=== PATIENT | female | born 1970 | race African-American/Black ===

== ENCOUNTER 2017-11-07 10:41 | Inpatient (IN) | payer OTHER ==
[~2017-11-07] VITALS: Ht 172.7 cm; Wt 93.5 kg
[2017-11-07] MEDS ORDERED: UNOBMED (10:42)
[2017-11-07 10:46] VITALS: BP 135/94
[2017-11-07 11:14] LABS: BASOPHILS % (AUTO) 0.9 % (0.0-2.0); EOSINOPHILS % (AUTO) 1.2 % (0.0-3.0); HEMATOCRIT 44.1 % (37.0-47.0); MEAN CORPUSCULAR VOLUME 108 FL (80-99); NEUTROPHILS % (AUTO) 72.9 % (45.0-75.0); PLATELET COUNT 234 K/UL (150-450); RED BLOOD COUNT 4.09 M/UL (4.20-5.40); RED CELL DISTRIBUTION WIDTH 15.4 % (11.6-14.8); WHITE BLOOD COUNT 9.1 K/UL (4.8-10.8)
[2017-11-07] MEDS ORDERED: HUMULIN R100 UNIT/1 SUBQ (11:39)
[2017-11-07] MEDS ORDERED: ALLOPURINOL300 M1 ORAL (11:39)
[2017-11-07] MEDS ORDERED: COREG6.25 MG ORAL (11:39)
--- NOTE | 2017-11-07 11:46 | Diagnostic Imaging Report ---
Indications: Seizure Technique: Spiral acquisitions obtained through the brain. Angled axial and coronal 5 x 5 mm slices were reconstructed. Total dose length product 1393.68 mGycm. CTDI vol(s) 70.38 mGy. Dose reduction achieved using automated exposure control Comparison: None. Findings: Ventricles and extra-axial CSF spaces are prominent for age, and there is mild periventricular deep white matter low-attenuation. No acute intrarenal hemorrhage or edema. No mass effect or midline shift. There is some thickening of the subcutaneous fat in the left posterior high parietal region. The calvarium is intact. The orbits and sinuses are unremarkable. The mastoids are clear. Impression: Mild cerebral volume loss and chronic periventricular deep white matter ischemic change, somewhat advanced for age Negative for acute intracranial bleed or mass effect Focal left parietal subcutaneous fat soft tissue thickening, could represent a small area of contusion or a subcutaneous lesion fluid. Correlate with clinical findings The CT scanner at [facility] is accredited by the [employer] and the scans are performed using protocols designed to limit radiation exposure to as low as reasonably achievable to attain images of sufficient resolution adequate for diagnostic evaluation.
[2017-11-07 12:05] LABS: BILIRUBIN, URINE NEGATIVE (NEGATIVE); COLOR,URINE PALE YELLOW; GLUCOSE, URINE (UA) 4+ (NEGATIVE); KETONES,URINE NEGATIVE (NEGATIVE); LEUKOCYTE ESTERASE ,URINE 2+ (NEGATIVE); NITRITE,URINE NEGATIVE (NEGATIVE); PH,URINE 7 (4.5-8.0); PROTEIN,URINE NEGATIVE (NEGATIVE); UROBILINOGEN,URINE NORMAL MG/DL (0.0-1.0)
[2017-11-07 12:06] LABS: APPEARANCE,URINE SLIGHTLY CLOUDY
[2017-11-07] MEDS ORDERED: LEVOTHYROXINE200 MCG PO (12:29)
[2017-11-07] MEDS ORDERED: TRAZODONE HCL100 MG ORAL (12:36)
[2017-11-07] MEDS ORDERED: OMEPRAZOLE40 M1 ORAL (12:36)
[2017-11-07] MEDS ORDERED: TRAMADOL HCL50 MG ORAL (12:36)
[2017-11-07] MEDS ORDERED: ZOFRAN4 M3 ORAL (12:36)
[2017-11-07] MEDS ORDERED: GABAPENTIN300 MG ORAL (12:36)
[2017-11-07] MEDS ORDERED: NAPROXEN CR500 MG PO (12:36)
[2017-11-07] MEDS ORDERED: PAROXETINE HCL20 MG PO (12:36)
[2017-11-07] MEDS ORDERED: VIVITROL380 MG IM (12:36)
[2017-11-07] MEDS ORDERED: LORAZEPAM0.5 MG ORAL (12:36)
[2017-11-07 12:42] LABS: ALANINE AMINOTRANSFERASE 24 U/L (12-78); ALBUMIN 3.5 G/DL (3.4-5.0); ALBUMIN/GLOBULIN RATIO 0.7 (1.0-2.7); ALKALINE PHOSPHATASE 230 U/L (46-116); ANION GAP 7 mmol/L (5-15); ASPARTATE AMINO TRANSFERASE 24 U/L (15-37); BILIRUBIN,TOTAL 0.6 MG/DL (0.2-1.0); BLOOD UREA NITROGEN 14 mg/dL (7-18); CALCIUM 9.7 MG/DL (8.5-10.1); CARBON DIOXIDE 31 MMOL/L (21-32); CHLORIDE 94 MMOL/L (98-107); CKMB < 0.5 NG/ML (0.0-3.6); CREATINE KINASE 97 U/L (26-308); CREATININE 1.4 MG/DL (0.55-1.30); SODIUM 132 MMOL/L (136-145)
[2017-11-07 13:11] VITALS: BP 138/84
--- NOTE | 2017-11-07 13:22 | Emergency Room Report ---
History of Present Illness General Chief Complaint: Seizure Source: Patient, EMS Present Illness HPI The patient states that for the past few days, she has had spasms in her hands and upper arms. She states it causes her hands to flex and she is unable to control fine movements. She states it is both of her hands and arms. She states she also felt a similar sensation all over her body. She has not had any loss of consciousness. She denies recent illness. She denies fever or chills. She denies nausea or vomiting. She denies headache. She does have a history of diabetes but does not take her blood sugar regularly and states she is not compliant with her medication regimen. She has no other complaints. Allergies: Coded Allergies: No Known Allergies (Unverified , 11/07/17) Patient History Past Medical History: see triage record, DM, HTN, seizures Social History: Denies: smoking, alcohol use, drug use Last Menstrual Period: 2013 Reviewed Nursing Documentation: PMH: Agreed; PSxH: Agreed Nursing Documentation-PMH Hx Diabetes: Yes - DM2 Hx Seizures: Yes - No meds Review of Systems All Other Systems: negative except mentioned in HPI Physical Exam Vital Signs Date Time Temp Pulse Resp B/P (MAP) Pulse Ox O2 Delivery O2 Flow Rate FiO2 11/07/17 10:36 99.1 121 18 138/97 99 Room Air 99.1 Sp02 EP Interpretation: reviewed, normal General Appearance: no apparent distress, alert, GCS 15, non-toxic Head: normocephalic, atraumatic Eyes: bilateral eye normal inspection, bilateral eye PERRL ENT: hearing grossly normal, normal pharynx, no angioedema, normal voice Neck: full range of motion, supple/symm/no masses Respiratory: chest non-tender, lungs clear, normal breath sounds, speaking full sentences Cardiovascular #1: no edema, tachycardia Gastrointestinal: normal bowel sounds, non tender, soft, non-distended, no guarding, no rebound Rectal: deferred Musculoskeletal: back normal, gait/station normal, normal range of motion, non- tender Neurologic: alert, oriented x3, responsive, motor strength/tone normal, sensory intact, speech normal Psychiatric: judgement/insight normal, memory normal, mood/affect normal, no suicidal/homicidal ideation Skin: normal color, no rash, warm/dry, well hydrated Medical Decision Making Diagnostic Impression: Primary Impression: Hyperglycemia Additional Impressions: Carpopedal spasm Noncompliance with medications ER Course This patient is found to have significant hyperglycemia. The patient's blood sugar is over 600. Patient has poor compliance with her diabetes medication regimen. There is no evidence of DKA. The patient is given aggressive hydration. There is no evidence of infection. The patient will be admitted for uncontrolled diabetes. Laboratory Tests Test 11/07/17 10:50 11/07/17 11:46 11/07/17 11:50 White Blood Count 9.1 K/UL (4.8-10.8) Red Blood Count 4.09 M/UL (4.20-5.40) L Hemoglobin 13.0 G/DL (12.0-16.0) Hematocrit 44.1 % (37.0-47.0) Mean Corpuscular Volume 108 FL (80-99) H Mean Corpuscular Hemoglobin 31.9 PG (27.0-31.0) H Mean Corpuscular Hemoglobin Concent 29.6 G/DL (32.0-36.0) L Red Cell Distribution Width 15.4 % (11.6-14.8) H Platelet Count 234 K/UL (150-450) Mean Platelet Volume 7.7 FL (6.5-10.1) Neutrophils (%) (Auto) 72.9 % (45.0-75.0) Lymphocytes (%) (Auto) 19.0 % (20.0-45.0) L Monocytes (%) (Auto) 6.0 % (1.0-10.0) Eosinophils (%) (Auto) 1.2 % (0.0-3.0) Basophils (%) (Auto) 0.9 % (0.0-2.0) Acetone Level Negative (NEGATIVE) Urine Color Pale yellow Urine Appearance Slightly cloudy Urine pH 7 (4.5-8.0) Urine Specific [place] 1.010 (1.005-1.035) Urine Protein Negative (NEGATIVE) Urine Glucose (UA) 4+ (NEGATIVE) H Urine Ketones Negative (NEGATIVE) Urine Occult Blood Negative (NEGATIVE) Urine Nitrite Negative (NEGATIVE) Urine Bilirubin Negative (NEGATIVE) Urine Urobilinogen Normal MG/DL (0.0-1.0) Urine Leukocyte Esterase 2+ (NEGATIVE) H Urine RBC 0-2 /HPF (0 - 2) Urine WBC 2-4 /HPF (0 - 2) Urine Squamous Epithelial Cells Occasional /LPF Urine Bacteria Few /HPF (NONE) Urine Opiates Screen Negative (NEGATIVE) Urine Barbiturates Screen Negative (NEGATIVE) Phencyclidine (PCP) Screen Negative (NEGATIVE) Urine Amphetamines Screen Negative (NEGATIVE) Urine Benzodiazepines Screen Negative (NEGATIVE) Urine Cocaine Screen Negative (NEGATIVE) Urine Marijuana (THC) Screen Negative (NEGATIVE) Sodium Level 132 MMOL/L (136-145) L Potassium Level 4.0 MMOL/L (3.5-5.1) Chloride Level 94 MMOL/L (98-107) L Carbon Dioxide Level 31 MMOL/L (21-32) Anion Gap 7 mmol/L (5-15) Blood Urea Nitrogen 14 mg/dL (7-18) Creatinine 1.4 MG/DL (0.55-1.30) H Estimate Glomerular Filtration Rate 49.1 mL/min (>60) Glucose Level 601 MG/DL (74-106) *H Calcium Level 9.7 MG/DL (8.5-10.1) Magnesium Level 1.8 MG/DL (1.8-2.4) Total Bilirubin 0.6 MG/DL (0.2-1.0) Aspartate Amino Transferase (AST) 24 U/L (15-37) Alanine Aminotransferase (ALT) 24 U/L (12-78) Alkaline Phosphatase 230 U/L (46-116) H Total Creatine Kinase 97 U/L (26-308) Creatine Kinase MB < 0.5 NG/ML (0.0-3.6) Creatine Kinase MB Relative Index 0.5 Total Protein 8.6 G/DL (6.4-8.2) H Albumin 3.5 G/DL (3.4-5.0) Globulin 5.1 g/dL Albumin/Globulin Ratio 0.7 (1.0-2.7) L Serum Alcohol < 3 mg/dL EKG Diagnostic Results Rate: tachycardiac Rhythm: other - S.tachycardia ST Segments: no acute changes Rhythm Strip Diag. Results EP Interpretation: yes Rate: 100's Rhythm: no PVC's, no ectopy, other - S.tachycardia CT/MRI/US Diagnostic Results CT/MRI/US Diagnostic Results : Imaging Test Ordered: CT head Impression Impression: Mild cerebral volume loss and chronic periventricular deep white matter ischemic change, somewhat advanced for age Negative for acute intracranial bleed or mass effect Focal left parietal subcutaneous fat soft tissue thickening, could represent a small area of contusion or a subcutaneous lesion fluid. Correlate with clinical findings Last Vital Signs Date Time Temp Pulse Resp B/P (MAP) Pulse Ox O2 Delivery O2 Flow Rate FiO2 11/07/17 10:46 99.1 105 20 135/94 98 Room Air 99.1 Status: improved Disposition: ADMITTED INPATIENT Condition: Serious Referrals: NOT CHOSEN IPA/,REFERRING (PCP) Cristal Gambino DO Nov 07, 2017 13:22
[2017-11-07] MEDS ORDERED: Insulin Human Regular 100units/ml 3ml SUBQ ONE (15:00)
[2017-11-07 15:14] VITALS: BP 157/97
[2017-11-07 18:39] LABS: BASOPHILS % (AUTO) 1.1 % (0.0-2.0); EOSINOPHILS % (AUTO) 1.5 % (0.0-3.0); HEMATOCRIT 34.9 % (37.0-47.0); HEMOGLOBIN 10.8 G/DL (12.0-16.0); LYMPHOCYTES % (AUTO) 19.8 % (20.0-45.0); MEAN CORPUSCULAR VOLUME 107 FL (80-99); NEUTROPHILS % (AUTO) 70.6 % (45.0-75.0); PLATELET COUNT 205 K/UL (150-450); RED BLOOD COUNT 3.26 M/UL (4.20-5.40); RED CELL DISTRIBUTION WIDTH 15.6 % (11.6-14.8); WHITE BLOOD COUNT 10.8 K/UL (4.8-10.8)
[2017-11-07] MEDS: LORazepam 0.5mg tab ORAL SCH (18:44)
[2017-11-07 20:00] VITALS: BP 138/91
[2017-11-07] MEDS ORDERED: Levemir Flexpen SUBQ SCH (21:00)
[2017-11-07] MEDS: NovoLOG Insulin Flexpen SUBQ SCH (21:19)
[2017-11-07] MEDS: Levemir Flexpen SUBQ SCH (21:19)
[2017-11-07] MEDS: Carvedilol 6.25mg Tab ORAL SCH (21:26)
[2017-11-07] MEDS: TraZODone 100mg tab ORAL SCH (21:26)
[2017-11-07] MEDS: Naproxen 500mg tab ORAL SCH (21:26)
[2017-11-07] MEDS: Heparin 5000 units/ml inj SUBQ SCH (21:29)
--- NOTE | 2017-11-07 23:15 | Consultation ---
DATE OF CONSULTATION: 11/07/2017 ENDOCRINOLOGY CONSULTATION CONSULTING PHYSICIAN: Doug Paiz M.D. REFERRING PHYSICIAN: Joss Corral M.D. REASON FOR CONSULTATION: Diabetes management. HISTORY OF PRESENT ILLNESS: The patient is a 47-year-old female, morbidly obese with history of diabetes, who presented to the hospital after having a seizure activity. I reviewed her medical record at [facility], and she had a similar presentation to [facility] with elevated glucose and seizure. The patient was admitted to the floor for observation and treatment. Currently is lethargic, most likely related to a postictal state and not able to provide any history. PAST MEDICAL HISTORY: 1. Seizure. 2. Diabetes. 3. Hypertension. 4. Hypothyroidism. MEDICATIONS: As an outpatient: 1. Regular insulin. 2. Gabapentin. 3. Carvedilol. 4. Allopurinol. 5. Lorazepam. 6. Levothyroxine 50 mcg daily. 7. Paxil. 8. Tramadol. 9. Trazodone. SOCIAL HISTORY: The patient denies any smoking, alcohol, or drug use. FAMILY HISTORY: Diabetes. REVIEW OF SYSTEMS: Difficult to obtain. PHYSICAL EXAMINATION: GENERAL: The patient is lethargic. VITAL SIGNS: Blood pressure is 157/97, pulse 92, temperature 99.1 degrees, and respiratory rate 20. HEENT: Pupils are equal and reactive to light. Sclerae anicteric. NECK: No JVD. No thyromegaly. LUNGS: Clear. HEART: Regular rate and rhythm. ABDOMEN: Positive bowel sounds. Soft. EXTREMITIES: No clubbing, cyanosis, or edema. LABORATORY AND DIAGNOSTIC DATA: Sodium 132, potassium 4, chloride 94, bicarbonate 31, BUN 14, creatinine 1.4, and glucose of 600. DIAGNOSES: 1. Seizure. 2. Diabetes, out of control. 3. Noncompliance with medication. 4. Hypothyroidism. 5. Hypertension. PLAN: 1. Start Levemir 24 units nightly. 2. Start NovoLog 8 units before each meal. 3. Check hemoglobin A1c. 4. Blood glucose monitoring before meals and at bedtime. 5. NovoLog sliding scale before meals and at bedtime. 6. Continue levothyroxine 50 mcg daily. 7. Check TSH and free T4. 8. Further adjustment according to blood glucose values. Thank you, Dr. Corral, for the courtesy of this consultation. Doug Paiz M.D. DR: PERFECTO JOB#: [id number] CC:
[2017-11-08] VITALS: BP 155/108
[2017-11-08] MEDS: traMADol 50mg tab ORAL PRN ×2 (00:40→11:47)
[2017-11-08] MEDS: LORazepam Inj 2mg/ml 1ml IV PRN ×2 (00:41→11:45)
[2017-11-08] MEDS: NovoLOG Insulin Flexpen SUBQ SCH ×7 (06:38→21:31)
--- NOTE | 2017-11-08 07:06 | General Progress Note ---
Assessment/Plan Problem List: (1) Hyperglycemia ICD Codes: R73.9 - Hyperglycemia, unspecified SNOMED: 65214745 (2) Noncompliance with medications ICD Codes: Z91.14 - Patient's other noncompliance with medication regimen SNOMED: 830178904 (3) Carpopedal spasm ICD Codes: R29.0 - [place] SNOMED: 04261458 Assessment/Plan fasting glucose improved continue Levemir 24 units qhs continue Novolog 8 units ac tid + SSI Subjective ROS Limited/Unobtainable: Yes Allergies: Coded Allergies: No Known Allergies (Unverified , 11/07/17) Subjective events noted Objective Last 24 Hour Vital Signs Date Time Temp Pulse Resp B/P (MAP) Pulse Ox O2 Delivery O2 Flow Rate FiO2 11/08/17 00:00 83 11/08/17 00:00 98.0 81 22 155/108 99 Room Air 98.0 11/07/17 21:26 103 138/91 11/07/17 20:00 103 11/07/17 20:00 98.2 97 20 138/91 99 Room Air 98.2 11/07/17 15:45 99.1 92 20 157/97 99 Room Air 99.1 11/07/17 15:14 92 20 157/97 99 Room Air 11/07/17 13:11 95 22 138/84 98 Room Air 11/07/17 10:46 99.1 105 20 135/94 98 Room Air 99.1 11/07/17 10:46 121 18 Room Air 11/07/17 10:36 99.1 121 18 138/97 99 Room Air 99.1 Intake and Output 11/07/17 11/08/17 19:00 07:00 Intake Total 2000 ml Balance 2000 ml Intake Oral 0 ml IV Total 2000 ml Laboratory Tests 11/07/17 10:50: White Blood Count 9.1, Red Blood Count 4.09L, Hemoglobin 13.0, Hematocrit 44.1, Mean Corpuscular Volume 108H, Mean Corpuscular Hemoglobin 31.9H, Mean Corpuscular Hemoglobin Concent 29.6L, Red Cell Distribution Width 15.4H, Platelet Count 234, Mean Platelet Volume 7.7, Neutrophils (%) (Auto) 72.9, Lymphocytes (%) (Auto) 19.0L, Monocytes (%) (Auto) 6.0, Eosinophils (%) (Auto) 1.2, Basophils (%) (Auto) 0.9, Acetone Level Negative 11/07/17 11:46: Urine Color Pale yellow, Urine Appearance Slightly cloudy, Urine pH 7, Urine Specific [place] 1.010, Urine Protein Negative, Urine Glucose (UA) 4+H, Urine Ketones Negative, Urine Occult Blood Negative, Urine Nitrite Negative, Urine Bilirubin Negative, Urine Urobilinogen Normal, Urine Leukocyte Esterase 2+H, Urine RBC 0-2, Urine WBC 2-4, Urine Squamous Epithelial Cells Occasional, Urine Bacteria Few, Urine Opiates Screen Negative, Urine Barbiturates Screen Negative , Phencyclidine (PCP) Screen Negative, Urine Amphetamines Screen Negative, Urine Benzodiazepines Screen Negative, Urine Cocaine Screen Negative, Urine Marijuana (THC) Screen Negative 11/07/17 11:50: Sodium Level 132L, Potassium Level 4.0, Chloride Level 94L, Carbon Dioxide Level 31, Anion Gap 7, Blood Urea Nitrogen 14, Creatinine 1.4H, Estimat Glomerular Filtration Rate 49.1, Glucose Level 601*H, Calcium Level 9.7, Magnesium Level 1.8, Total Bilirubin 0.6, Aspartate Amino Transf (AST/SGOT) 24, Alanine Aminotransferase (ALT/SGPT) 24, Alkaline Phosphatase 230H, Total Creatine Kinase 97, Creatine Kinase MB < 0.5, Creatine Kinase MB Relative Index 0.5, Total Protein 8.6H, Albumin 3.5, Globulin 5.1, Albumin/Globulin Ratio 0.7L , Serum Alcohol < 3 11/07/17 18:25: White Blood Count 10.8, Red Blood Count 3.26L, Hemoglobin 10.8L, Hematocrit 34.9L, Mean Corpuscular Volume 107H, Mean Corpuscular Hemoglobin 33.1H, Mean Corpuscular Hemoglobin Concent 31.0L, Red Cell Distribution Width 15.6H, Platelet Count 205, Mean Platelet Volume 6.7, Neutrophils (%) (Auto) 70.6, Lymphocytes (%) (Auto) 19.8L, Monocytes (%) (Auto) 7.0, Eosinophils (%) (Auto) 1.5, Basophils (%) (Auto) 1.1, Serum Alcohol < 3, Hemoglobin A1c 12.2H, Troponin I 0.002, Pro-B-Type Natriuretic Peptide 220H Height (Feet): 5 Height (Inches): 8.00 Weight (Pounds): 206 General Appearance: no apparent distress Neck: normal alignment Cardiovascular: normal rate Respiratory/Chest: lungs clear Abdomen: normal bowel sounds Pelvis: normal external exam Edema: no edema noted Arm (L), no edema noted Arm (R), no edema noted Leg (L), no edema noted Leg (R), no edema noted Pedal (L), no edema noted Pedal (R), no edema noted Generalized Objective Item Value Date Time Bedside Blood Glucose 173 mg/dl H 11/08/17 0639 Bedside Blood Glucose 433 mg/dl H 11/07/17 2333 Bedside Blood Glucose 495 mg/dl H 11/07/17 2119 Bedside Blood Glucose 430 mg/dl H 11/07/17 1532 Bedside Blood Glucose 434 mg/dl H 11/07/17 1450 Doug Paiz MD Nov 08, 2017 07:06
[2017-11-08 07:40] LABS: BASOPHILS % (AUTO) 1.2 % (0.0-2.0); HEMATOCRIT 34.9 % (37.0-47.0); HEMOGLOBIN 10.7 G/DL (12.0-16.0); LYMPHOCYTES % (AUTO) 28.2 % (20.0-45.0); MEAN CORPUSCULAR VOLUME 108 FL (80-99); MONOCYTES % (AUTO) 6.7 % (1.0-10.0); NEUTROPHILS % (AUTO) 61.8 % (45.0-75.0); PLATELET COUNT 229 K/UL (150-450); RED BLOOD COUNT 3.25 M/UL (4.20-5.40); RED CELL DISTRIBUTION WIDTH 15.6 % (11.6-14.8); WHITE BLOOD COUNT 8.8 K/UL (4.8-10.8)
[2017-11-08 08:00] VITALS: BP 189/111
[2017-11-08 08:05] LABS: CHOLESTEROL 194 MG/DL (< 200); HDL CHOLESTEROL 38 MG/DL (40-60); TRIGLYCERIDES 288 MG/DL (30-150)
[2017-11-08] MEDS: Naproxen 500mg tab ORAL SCH ×2 (09:14→17:14)
[2017-11-08] MEDS: PARoxetine 20mg tab ORAL SCH (09:14)
[2017-11-08] MEDS: Carvedilol 6.25mg Tab ORAL SCH ×2 (09:14→21:21)
[2017-11-08] MEDS: LORazepam 0.5mg tab ORAL SCH ×2 (09:14→17:13)
[2017-11-08] MEDS: Heparin 5000 units/ml inj SUBQ SCH ×2 (09:16→21:32)
--- NOTE | 2017-11-08 10:53 | Consultation ---
Consult Note Assessment/Plan DICT # [id number] Joss Corral MD Nov 08, 2017 10:53
[2017-11-08] MEDS: HydrALAZINE 25mg tab ORAL PRN (11:46)
[2017-11-08 12:00] VITALS: BP 161/108
--- NOTE | 2017-11-08 13:20 | Diagnostic Imaging Report ---
Indication: Cough Technique: One view of the chest Comparison: none Findings: Lungs and pleural spaces are clear. The heart is enlarged. The aorta is tortuous Impression: Cardiomegaly. No acute process
--- NOTE | 2017-11-08 14:02 | History and Physical ---
History of Present Illness General Date patient seen: Nov 08, 2017 Time patient seen: 14:02 Reason for Hospitalization: Seizure Present Illness HPI 47 y/o female with a PMH of seizure d/o, uncontrolled DM, hypothyroidism, gout, bipolar disorder, and daily smoker presented to [place] [facility] for seizure activity with altered mental status and generalized muscle spasms to upper and lower extremities and numbness and tingling. Patient states that this lasted for several minutes, which prompted her to come to the ER. She states that she has had several symptoms such as this with the last one on 10/14/17 where she was intubated in the field and brought to [facility]. There, she was further managed in the ICU and discharged in stable condition. Patient was also noted to have a blood sugar of 601 upon arrival to ED. Patient also reports noncompliance with her medications including her keppra and diabetic medications. Patient was given insulin and IVF. Denies cp, sob, n/v, f/c, d/c, abdominal pain. Patient does report depression but denies SI/HI. Reports to socially drinking and 1/2 ppd x 5 years tobacco abuser. Denies any other illicit drug use. Allergies: Coded Allergies: No Known Allergies (Unverified , 11/07/17) Medication History Scheduled Allopurinol* (Allopurinol*), 300 MG ORAL DAILY, (Reported) Carvedilol (Coreg), 6.25 MG ORAL EVERY 12 HOURS, (Reported) Gabapentin* (Gabapentin*), 300 MG ORAL THREE TIMES A DAY, (Reported) Levothyroxine Sodium* (Levothyroxine Sodium), 50 MCG PO DAILY, (Reported) Lorazepam* (Lorazepam*), 0.5 MG ORAL BID, (Reported) Naproxen Sodium (Naproxen Cr), 500 MG PO BID, (Reported) Omeprazole (Omeprazole), 40 MG ORAL DAILY, (Reported) Paroxetine Hcl* (Paxil*), 20 MG PO DAILY, (Reported) Trazodone Hcl* (Desyrel*), 100 MG ORAL BEDTIME, (Reported) Scheduled PRN Ondansetron* (Zofran*), 4 MG ORAL Q6H PRN for Nausea & Vomiting, (Reported) Tramadol Hcl* (Ultram*), 50 MG ORAL Q6H PRN for For Pain, (Reported) Miscellaneous Medications Insulin Regular, Human (Humulin R), 0 SUBQ, (Reported) Naltrexone Microspheres (Vivitrol), 380 MG IM, (Reported) Unable to Obtain Medications (Unable To Obtain Meds), (Reported) Medications Narrative Active Scripts Medications Dose Route/Sig Max Daily Dose Days Date Category Gabapentin* (Gabapentin) 300 Mg Capsule 300 Mg ORAL THREE TIMES A DAY 11/07/17 Reported Ultram* (Tramadol HCl) 50 Mg Tablet 50 Mg ORAL Q6H PRN 11/07/17 Reported Desyrel* (Trazodone HCl) 100 Mg Tablet 100 Mg ORAL BEDTIME 11/07/17 Reported Paxil* (Paroxetine HCl) 20 Mg Tablet 20 Mg PO DAILY 11/07/17 Reported Zofran* (Ondansetron HCl) 4 Mg Tablet 4 Mg ORAL Q6H PRN 11/07/17 Reported Omeprazole 40 Mg Capsule.dr 40 Mg ORAL DAILY 11/07/17 Reported Naproxen Cr (Naproxen Sodium) 500 Mg Tbmp.24hr 500 Mg PO BID 11/07/17 Reported Vivitrol (Naltrexone Microspheres) 380 Mg Ayana.er.rec 380 Mg IM 11/07/17 Reported Lorazepam* (Lorazepam) 0.5 Mg Tablet 0.5 Mg ORAL BID 11/07/17 Reported Levothyroxine Sodium 200 Mcg Vial 50 Mcg PO DAILY 11/07/17 Reported Humulin R (Insulin Human Regular) 100 Unit/1 Ml Vial 0 SUBQ 11/07/17 Reported Coreg (Carvedilol) 6.25 Mg Tablet 6.25 Mg ORAL EVERY 12 HOURS 11/07/17 Reported Allopurinol* (Allopurinol) 300 Mg Tablet 300 Mg ORAL DAILY 11/07/17 Reported Unable To Obtain Meds (Unable to Obtain Medications) 1 Ea Ea 11/07/17 Reported Patient History History Provided By: Patient, Medical Record Healthcare decision maker Y Resuscitation status Full Code Advanced Directive on File Review of Systems All Other Systems: negative except mentioned in HPI Physical Exam General Appearance: no apparent distress, alert HEENT: normocephalic, atraumatic, other - exophthalmos Neck: non-tender, normal alignment, supple Respiratory/Chest: chest wall non-tender, lungs clear, normal breath sounds Cardiovascular/Chest: normal peripheral pulses, normal rate, regular rhythm Abdomen: normal bowel sounds, non tender, soft Extremities: normal range of motion, non-tender, normal inspection Skin Exam: normal pigmentation, warm/dry 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, no motor/sensory deficits, alert, oriented x 3 Last 24 Hour Vital Signs Date Time Temp Pulse Resp B/P (MAP) Pulse Ox O2 Delivery O2 Flow Rate FiO2 11/08/17 11:46 168/114 11/08/17 10:13 98.1 11/08/17 09:14 76 186/111 11/08/17 08:00 89 11/08/17 08:00 98.1 76 18 189/111 97 Room Air 98.1 11/08/17 04:00 87 11/08/17 00:00 83 11/08/17 00:00 98.0 81 22 155/108 99 Room Air 98.0 11/07/17 21:26 103 138/91 11/07/17 20:00 103 11/07/17 20:00 98.2 97 20 138/91 99 Room Air 98.2 11/07/17 15:45 99.1 92 20 157/97 99 Room Air 99.1 11/07/17 15:14 92 20 157/97 99 Room Air Intake and Output 11/07/17 11/08/17 19:00 07:00 Intake Total 2000 ml Balance 2000 ml Intake Oral 0 ml IV Total 2000 ml Laboratory Tests Test 11/07/17 18:25 11/08/17 07:00 11/08/17 11:00 White Blood Count 10.8 K/UL (4.8-10.8) 8.8 K/UL (4.8-10.8) Red Blood Count 3.26 M/UL (4.20-5.40) L 3.25 M/UL (4.20-5.40) L Hemoglobin 10.8 G/DL (12.0-16.0) L 10.7 G/DL (12.0-16.0) L Hematocrit 34.9 % (37.0-47.0) L 34.9 % (37.0-47.0) L Mean Corpuscular Volume 107 FL (80-99) H 108 FL (80-99) H Mean Corpuscular Hemoglobin 33.1 PG (27.0-31.0) H 33.0 PG (27.0-31.0) H Mean Corpuscular Hemoglobin Concent 31.0 G/DL (32.0-36.0) L 30.7 G/DL (32.0-36.0) L Red Cell Distribution Width 15.6 % (11.6-14.8) H 15.6 % (11.6-14.8) H Platelet Count 205 K/UL (150-450) 229 K/UL (150-450) Mean Platelet Volume 6.7 FL (6.5-10.1) 8.0 FL (6.5-10.1) Neutrophils (%) (Auto) 70.6 % (45.0-75.0) 61.8 % (45.0-75.0) Lymphocytes (%) (Auto) 19.8 % (20.0-45.0) L 28.2 % (20.0-45.0) Monocytes (%) (Auto) 7.0 % (1.0-10.0) 6.7 % (1.0-10.0) Eosinophils (%) (Auto) 1.5 % (0.0-3.0) 2.0 % (0.0-3.0) Basophils (%) (Auto) 1.1 % (0.0-2.0) 1.2 % (0.0-2.0) Hemoglobin A1c 12.2 % (4.3-6.0) H Troponin I 0.002 ng/mL (0.000-0.056) Pro-B-Type Natriuretic Peptide 220 pg/mL (0-125) H Serum Alcohol < 3 mg/dL Triglycerides Level 288 MG/DL (30-150) H Cholesterol Level 194 MG/DL (< 200) LDL Cholesterol 125 mg/dL (<100) H HDL Cholesterol 38 MG/DL (40-60) L Cholesterol/HDL Ratio 5.1 (3.3-4.4) H Ammonia 31 umol/L (11-32) Height (Feet): 5 Height (Inches): 8.00 Weight (Pounds): 206 Medications Current Medications Medications (Trade) Dose Ordered Sig/Tadeo Route PRN Reason Start Time Stop Time Status Last Admin Dose Admin Allopurinol (Allopurinol) 300 mg DAILY ORAL 11/08/17 09:00 12/08/17 08:59 11/08/17 09:14 Carvedilol (Coreg) 6.25 mg EVERY 12 HOURS ORAL 11/07/17 21:00 12/07/17 20:59 11/08/17 09:14 Dextrose (Dextrose 50%) 25 ml STAT PRN IV Hypoglycemia 11/07/17 18:45 12/07/17 18:44 Dextrose (Dextrose 50%) 50 ml STAT PRN IV Hypoglycemia 11/07/17 18:45 12/07/17 18:44 Folic Acid (Folate) 1 mg DAILY ORAL 11/09/17 09:00 12/09/17 08:59 Gabapentin (Neurontin) 300 mg THREE TIMES A DAY ORAL 11/07/17 18:00 12/07/17 17:59 11/08/17 09:14 Heparin Sodium (Porcine) (Heparin 5000 units/ml) 5,000 units EVERY 12 HOURS SUBQ 11/07/17 21:00 12/07/17 20:59 11/08/17 09:16 Hydralazine HCl (Apresoline) 25 mg Q6H PRN ORAL Administer for SBP > 160 11/08/17 11:00 12/08/17 10:59 11/08/17 11:46 Insulin Aspart (NovoLOG) BEFORE MEALS AND HS SUBQ 11/07/17 21:00 12/07/17 20:59 11/08/17 11:50 Insulin Aspart (NovoLOG) 8 units NOVOTIAC SUBQ 11/08/17 06:30 12/08/17 06:29 11/08/17 11:49 Insulin Detemir (Levemir) 24 units BEDTIME SUBQ 11/07/17 21:00 12/07/17 20:59 11/07/17 21:19 Levetiracetam (Keppra) 500 mg Q12HR ORAL 11/08/17 21:00 12/08/17 20:59 Levothyroxine Sodium (Synthroid) 50 mcg DAILY@0630 ORAL 11/08/17 06:30 12/12/17 06:29 11/08/17 06:37 Lorazepam (Ativan 2mg/ml 1ml) 1 mg Q2H PRN IV For Anxiety 11/07/17 17:30 11/14/17 17:29 11/08/17 11:45 Lorazepam (Ativan) 0.5 mg BID ORAL 11/07/17 18:00 11/14/17 17:59 11/08/17 09:14 Multivitamins (Multivitamins) 1 tab DAILY ORAL 11/09/17 09:00 12/09/17 08:59 Naproxen (Naprosyn) 500 mg TWICE A DAY ORAL 11/07/17 20:00 12/07/17 19:59 11/08/17 09:14 Ondansetron HCl (Zofran ODT) 4 mg Q6H PRN ORAL Nausea & Vomiting 11/07/17 17:30 12/07/17 17:29 Pantoprazole (Protonix) 40 mg DAILY ORAL 11/08/17 09:00 12/08/17 08:59 11/08/17 09:12 Paroxetine HCl (Paxil) 20 mg DAILY ORAL 11/08/17 09:00 12/08/17 08:59 11/08/17 09:14 Sodium Chloride 1,000 ml @ 100 mls/hr Q10H IV 11/07/17 18:30 12/07/17 18:29 11/08/17 03:44 Thiamine HCl (Vitamin B1) 100 mg DAILY ORAL 11/09/17 09:00 12/09/17 08:59 Tramadol HCl (Ultram) 50 mg Q6H PRN ORAL For Pain 11/07/17 17:30 11/14/17 17:29 11/08/17 11:47 Trazodone HCl (Desyrel) 100 mg BEDTIME ORAL 11/07/17 21:00 12/07/17 20:59 11/07/17 21:26 Assessment/Plan Problem List: (1) Seizure disorder ICD Codes: G40.909 - Epilepsy, unspecified, not intractable, without status epilepticus SNOMED: 929515729 (2) Uncontrolled diabetes mellitus ICD Codes: E11.65 - Type 2 diabetes mellitus with hyperglycemia SNOMED: 62042129, 669196535 (3) Hypothyroidism ICD Codes: E03.9 - Hypothyroidism, unspecified SNOMED: 44880634 (4) Tobacco abuse ICD Codes: Z72.0 - Tobacco use SNOMED: 914225133 (5) Gout ICD Codes: M10.9 - Gout, unspecified SNOMED: 74572960 (6) Bipolar 1 disorder ICD Codes: F31.9 - Bipolar disorder, unspecified SNOMED: 881220711 (7) Lives with SNOMED: 331647327 (8) Carpopedal spasm ICD Codes: R29.0 - [place] SNOMED: 77666303 (9) Noncompliance with medications ICD Codes: Z91.14 - Patient's other noncompliance with medication regimen SNOMED: 437798829 (10) Hyponatremia ICD Codes: E87.1 - Hypo-osmolality and hyponatremia SNOMED: 26616459 (11) ROSIE (acute kidney injury) ICD Codes: N17.9 - Acute kidney failure, unspecified SNOMED: 73041551 (12) Hypertensive urgency ICD Codes: I16.0 - Hypertensive urgency SNOMED: 214183872 (13) Anemia ICD Codes: D64.9 - Anemia, unspecified SNOMED: 257038771 (14) Alcoholism ICD Codes: F10.20 - Alcohol dependence, uncomplicated SNOMED: 2569621 Status: stable, progressing Assessment/Plan - Admit to inpatient - Neurology unavailable until Sunday - Endocrinology and pulmonology consulted, appreciate rec's - Sz likely 2/2 hyperglycemia with BS 601 - CT head with chronic changes. no acute pathology - Consider EEG - utox negative. serum alcohol unremarkable. - Check CXR - monitor neuro status - A1c 12 - levemir 24 units - Novolog 8 units + SSi - Monitor blood sugars. No e/o DKA - Check TSH, fT4 - Monitor blood pressure. If continues to be elevated, will increase coreg - EKG sinus tachycardia at 105bpm - ECHO with 60-65% EF with no wall motion abnormality - TG 288, LDL 125, HDL 38 - BNP 220 - Will start atorvastatin 80mg - IVF - Monitor Cr - Monitor Na. Likely pseudohyponatremia 2/2 hyperglycemia - Monitor H/H - Encourage compliance - Refusing psychiatry eval. Denies SI/HI - Pain control and supportive care - Continue home meds including keppra, synthroid, coreg, allopurinol - Continue multivitamin, folate, thiamine PCP: Dr. Case [phone] DVT Prophylaxis: SCD, HSQ Code Status: Full Hospital Classification Declaration: Based on this initial evaluation, and depending on the patient's clinical course, I anticipate that this patient will require hospitalization for 2-3 days for seizure and hyperglycemia and close respiratory/hemodynamic monitoring. Disposition: Once the patient is stable to leave the hospital, I anticipate the patient will likely be discharged to the following environment: home with I spent 72 minutes on this patient's case, and 39 minutes were dedicated to counseling and/or care coordination. Discussed with patient/family, nursing staff, SW/CM, pulmonology, cardiology, and endocrinology regarding clinical status, treatment course, and disposition planning. Time of note may not reflect time of encounter. Case was d/w Dr. Maldonado who agrees to plan of care. Kylie Dumont NP Nov 08, 2017 14:02
[2017-11-08 16:00] VITALS: BP 144/101
--- NOTE | 2017-11-08 17:45 | Consultation ---
DATE OF CONSULTATION: 11/08/2017 PULMONARY CONSULTATION CONSULTING PHYSICIAN: Joss Corral M.D. REFERRING PHYSICIAN: Binu Maldonado M.D. REASON FOR CONSULTATION: Respiratory distress, possible seizure and shortness of breath. HISTORY OF PRESENT ILLNESS: The patient is a 47-year-old female current daily smoker and alcoholic with a history of seizure disorder, CHF, and gout, discharged from [facility] on the 10/14/2017 after being admitted there with seizure. She was emergently intubated in the field, admitted to the ICU for further management and discharged in good condition. She presented to [place] overnight with same complaints once again, questionable witnessed seizure activity, altered mental status, generalized spasms and feeling unwell with numbness and tingling. She has been noncompliant with her medications since discharge. She had no other complaints, but has elevated blood sugar without evidence of DKA. She was started on insulin, IV fluids and has been seizure-free since she has been here. She currently feels better. She had some dyspnea when she first came in, but that is all resolved. No fevers, chills, headache, dizziness, nausea, or vomiting. She is very tearful when approached at bedside. PAST MEDICAL HISTORY: 1. Alcoholism. 2. Bipolar disorder. 3. CHF. 4. Gout. 5. Seizure disorder. 6. Hypothyroidism. 7. GERD. MEDICATIONS: Prior to admission, medications reviewed. Current medications, reviewed. ALLERGIES: No known drug allergies. SOCIAL HISTORY: She smokes 1 packs of cigarettes a day. Drinks a glass of wine with vodka daily as well as one beer. No drugs. She lives with her daughter. FAMILY HISTORY: Noncontributory. REVIEW OF SYSTEMS: Negative other than the history of present illness. PHYSICAL EXAMINATION: GENERAL: She is an obese female, in no acute distress. Awake, alert, and oriented x3. VITAL SIGNS: Temperature 98.1 degrees, pulse 76, blood pressure 189/111, respiratory rate 18 and saturating 97% on room air. HEENT: Normocephalic and atraumatic. Oropharynx is moist and clear. NECK: Supple. No lymphadenopathy or JVD. CHEST: Clear to auscultation bilaterally. HEART: Regular rate and rhythm. ABDOMEN: Soft, nontender, and nondistended. EXTREMITIES: No cyanosis, clubbing, or edema. ANCILLARY DATA: White count 8.8, hemoglobin 10.7, and platelet count 229. Sodium 132, potassium 4, chloride 94, bicarbonate 31, BUN 41, creatinine 1.4, and glucose 601. Hemoglobin A1c 12.02. Calcium 9.7. Magnesium 1.8. Total bilirubin 0.8. AST 24, ALT 24, and alkaline phosphatase 230. CK-MB 97. Troponin 220. Total protein 8.6. Albumin 0.7. Triglycerides 288, LDL 125, HDL 38. Urine toxicology negative. Urine is negative. Imaging, CT of the head showed no acute findings. There was a mild volume loss and deep white matter changes, advanced for her age and focal left parietal subcutaneous fat soft tissue thickening. [facility] records reviewed extensively by myself, 10/13/2017 echocardiogram LVEF 55%, mild diastolic dysfunction. On 10/10/2017, CT of the brain with similar findings as CT here. On 10/12/2017 abdominal ultrasound, fatty liver and some gallbladder sludge. On 10/12/2017, EEG showed [id number] diffuse background slowing. ASSESSMENT: The patient is a very unfortunate 47-year-old female with a history of alcoholism, tobacco use, bipolar disorder, CHF, gout, diabetes, hypothyroidism, obesity, and medication noncompliance presenting with hyperglycemic seizures. She has had multiple similar episodes in the past and was just discharged from [facility] where she was in the neuro critical care unit. The patient is fairly stable from a respiratory standpoint. She had some dyspnea in the setting of hyperglycemia, but she is in no respiratory distress, saturating well and is not short of breath. PROBLEM LIST: 1. Likely hyperglycemic seizure. 2. Diabetes with poor control. Of note with hyperglycemia. 3. Hypothyroidism. 4. Alcoholism. 5. Tobacco use disorder. 6. Bipolar disorder. 7. Gout. 8. CHF. TREATMENT PLAN: 1. Optimize pulmonary hygiene/mobilize as tolerated. 2. We will check a chest x-ray. 3. Oxygen p.r.n. 4. Monitor respiratory status. 5. Continue antiepileptic drugs. 6. Management of blood sugar per Endocrinology. 7. IV fluid hydration. 8. Multivitamin, thiamine, and folate. 9. Monitor for withdrawal. 10. Aspiration precautions. 11. DVT prophylaxis with heparin subcutaneous. 12. Consider psychiatry evaluation. Thank you for allowing me to assist in the care of your patient. If any assistance in the future, please do not hesitate to ask. Joss Corral M.D. DR: SOPHY JOB#: [id number] CC:
[2017-11-08 20:00] VITALS: BP 154/104
[2017-11-08] MEDS: TraZODone 100mg tab ORAL SCH (21:21)
[2017-11-08] MEDS: Levemir Flexpen SUBQ SCH (21:31)
[2017-11-09] VITALS: BP 165/98
[2017-11-09] MEDS: HydrALAZINE 25mg tab ORAL PRN ×2 (01:02→08:29)
[2017-11-09] MEDS: traMADol 50mg tab ORAL PRN ×2 (01:07→08:27)
[2017-11-09 04:00] VITALS: BP 151/108
[2017-11-09] MEDS: NovoLOG Insulin Flexpen SUBQ SCH ×6 (06:28→20:43)
[2017-11-09 07:29] LABS: BASOPHILS % (AUTO) 0.9 % (0.0-2.0); EOSINOPHILS % (AUTO) 3.3 % (0.0-3.0); HEMOGLOBIN 10.1 G/DL (12.0-16.0); LYMPHOCYTES % (AUTO) 22.4 % (20.0-45.0); MEAN CORPUSCULAR VOLUME 109 FL (80-99); MONOCYTES % (AUTO) 6.3 % (1.0-10.0); NEUTROPHILS % (AUTO) 67.1 % (45.0-75.0); PLATELET COUNT 214 K/UL (150-450); RED BLOOD COUNT 3.13 M/UL (4.20-5.40); RED CELL DISTRIBUTION WIDTH 15.7 % (11.6-14.8); WHITE BLOOD COUNT 7.2 K/UL (4.8-10.8)
[2017-11-09 07:51] LABS: ALANINE AMINOTRANSFERASE 18 U/L (12-78); ALBUMIN 2.9 G/DL (3.4-5.0); ALBUMIN/GLOBULIN RATIO 0.7 (1.0-2.7); ALKALINE PHOSPHATASE 139 U/L (46-116); ANION GAP 9 mmol/L (5-15); ASPARTATE AMINO TRANSFERASE 20 U/L (15-37); BILIRUBIN,TOTAL 0.4 MG/DL (0.2-1.0); BLOOD UREA NITROGEN 9 mg/dL (7-18); CALCIUM 9.3 MG/DL (8.5-10.1); CARBON DIOXIDE 26 MMOL/L (21-32); CHLORIDE 103 MMOL/L (98-107); CREATININE 0.9 MG/DL (0.55-1.30); POTASSIUM 3.8 MMOL/L (3.5-5.1); SODIUM 138 MMOL/L (136-145)
[2017-11-09 08:00] VITALS: BP 181/102
[2017-11-09] MEDS: Thiamine 100mg tab ORAL SCH (08:26)
[2017-11-09] MEDS: PARoxetine 20mg tab ORAL SCH (08:26)
[2017-11-09] MEDS: Naproxen 500mg tab ORAL SCH ×2 (08:26→17:16)
[2017-11-09] MEDS: LORazepam 0.5mg tab ORAL SCH ×2 (08:28→17:17)
[2017-11-09] MEDS: Carvedilol 6.25mg Tab ORAL SCH (08:28)
[2017-11-09] MEDS: Heparin 5000 units/ml inj SUBQ SCH ×2 (08:30→20:44)
[2017-11-09 12:00] VITALS: BP 146/74
--- NOTE | 2017-11-09 13:03 | General Progress Note ---
Assessment/Plan Problem List: (1) Seizure disorder ICD Codes: G40.909 - Epilepsy, unspecified, not intractable, without status epilepticus SNOMED: 447224232 (2) Uncontrolled diabetes mellitus ICD Codes: E11.65 - Type 2 diabetes mellitus with hyperglycemia SNOMED: 08409014, 276506901 (3) Hypothyroidism ICD Codes: E03.9 - Hypothyroidism, unspecified SNOMED: 48453443 (4) Tobacco abuse ICD Codes: Z72.0 - Tobacco use SNOMED: 523713925 (5) Gout ICD Codes: M10.9 - Gout, unspecified SNOMED: 38408315 (6) Bipolar 1 disorder ICD Codes: F31.9 - Bipolar disorder, unspecified SNOMED: 045420017 (7) Lives with SNOMED: 586384375 (8) Carpopedal spasm ICD Codes: R29.0 - [place] SNOMED: 81112311 (9) Noncompliance with medications ICD Codes: Z91.14 - Patient's other noncompliance with medication regimen SNOMED: 587813482 (10) Hyponatremia ICD Codes: E87.1 - Hypo-osmolality and hyponatremia SNOMED: 60162210 (11) ROSIE (acute kidney injury) ICD Codes: N17.9 - Acute kidney failure, unspecified SNOMED: 37665719 (12) Hypertensive urgency ICD Codes: I16.0 - Hypertensive urgency SNOMED: 765294456 (13) Anemia ICD Codes: D64.9 - Anemia, unspecified SNOMED: 889822409 (14) Alcoholism ICD Codes: F10.20 - Alcohol dependence, uncomplicated SNOMED: 8547765 (15) Diastolic CHF ICD Codes: I50.30 - Unspecified diastolic (congestive) heart failure SNOMED: 98925753, 239616256 Status: stable, progressing Assessment/Plan - Neurology unavailable until Sunday - Endocrinology and pulmonology consulted, appreciate rec's - Sz likely 2/2 hyperglycemia with BS 601 - CT head with chronic changes. no acute pathology - EEG done 11/08. Prelim showing mild generalized slowing with no clear epileptic discharges - utox negative. serum alcohol unremarkable. - CXR with no acute process - monitor neuro status - A1c 12 - levemir 24 units - Novolog 8 units + SSi - Monitor blood sugars. No e/o DKA - Check TSH, fT4 - Increase coreg 6.25 BID --> 12.5mg BID - Monitor blood pressure. - EKG sinus tachycardia at 105bpm - ECHO with 60-65% EF with no wall motion abnormality - TG 288, LDL 125, HDL 38 - BNP 220 - Check venous duplex to r/o DVT - start lasix 40mg PO qd given BLE edema - Will start atorvastatin 80mg - IVF - Monitor Cr 1.4 --> 0.9 - Monitor Na. Likely pseudohyponatremia 2/2 hyperglycemia. Resolved - Monitor H/H - Encourage compliance - Refusing psychiatry eval. Denies SI/HI - Pain control and supportive care - Continue home meds including keppra, synthroid, coreg, allopurinol - Continue multivitamin, folate, thiamine PCP: Dr. Case [phone] Attempted to call several times but no one was picking up. DVT Prophylaxis: SCD, HSQ Code Status: Full Hospital Classification Declaration: Based on this initial evaluation, and depending on the patient's clinical course, I anticipate that this patient will require hospitalization for 2-3 days for seizure and hyperglycemia and close respiratory/hemodynamic monitoring. Disposition: Once the patient is stable to leave the hospital, I anticipate the patient will likely be discharged to the following environment: home with HH I spent 72 minutes on this patient's case, and 39 minutes were dedicated to counseling and/or care coordination. Discussed with patient/family, nursing staff, SW/CM, pulmonology, cardiology, and endocrinology regarding clinical status, treatment course, and disposition planning. Time of note may not reflect time of encounter. Case was d/w Dr. Maldonado who agrees to plan of care. Subjective Date patient seen: Nov 09, 2017 Time patient seen: 12:58 Allergies: Coded Allergies: No Known Allergies (Unverified , 11/07/17) Subjective - EEG prelim was abnormal with mild generalized slowing but no clear epileptic discharges seen - blood pressure continues to be elevated in the systolic 180-200s. Hydralazine given - blood sugars better today in the 200s - denies chest pain or sob. reports bilateral lower extremity swelling Objective Last 24 Hour Vital Signs Date Time Temp Pulse Resp B/P (MAP) Pulse Ox O2 Delivery O2 Flow Rate FiO2 11/09/17 08:29 181/102 11/09/17 08:28 98 181/102 11/09/17 04:00 84 11/09/17 04:00 98.2 84 23 151/108 92 Room Air 98.2 11/09/17 02:42 84 11/09/17 01:02 165/98 11/09/17 00:00 98.0 97 21 165/98 90 Room Air 98.0 11/08/17 21:21 82 154/104 11/08/17 20:00 97.9 91 20 154/104 93 Room Air 97.9 11/08/17 20:00 82 11/08/17 16:00 83 11/08/17 16:00 98.5 83 18 144/101 97 Room Air 98.5 Intake and Output 11/08/17 11/09/17 19:00 07:00 Intake Total 460 ml 1100 ml Balance 460 ml 1100 ml Intake Oral 360 ml IV Total 100 ml 1100 ml # Voids 4 # Bowel Movements 1 Laboratory Tests 11/09/17 07:15: White Blood Count 7.2, Red Blood Count 3.13L, Hemoglobin 10.1L, Hematocrit 34.0L , Mean Corpuscular Volume 109H, Mean Corpuscular Hemoglobin 32.4H, Mean Corpuscular Hemoglobin Concent 29.8L, Red Cell Distribution Width 15.7H, Platelet Count 214, Mean Platelet Volume 7.4, Neutrophils (%) (Auto) 67.1, Lymphocytes (%) (Auto) 22.4, Monocytes (%) (Auto) 6.3, Eosinophils (%) (Auto) 3.3H, Basophils (%) (Auto) 0.9, Sodium Level 138, Potassium Level 3.8, Chloride Level 103, Carbon Dioxide Level 26, Anion Gap 9, Blood Urea Nitrogen 9, Creatinine 0.9, Estimat Glomerular Filtration Rate > 60, Glucose Level 296H, Calcium Level 9.3, Total Bilirubin 0.4, Aspartate Amino Transf (AST/SGOT) 20, Alanine Aminotransferase (ALT/SGPT) 18, Alkaline Phosphatase 139H, Total Protein 7.3, Albumin 2.9L, Globulin 4.4, Albumin/Globulin Ratio 0.7L, Thyroid Stimulating Hormone (TSH) 1.757, Free Thyroxine 1.02 Height (Feet): 5 Height (Inches): 8.00 Weight (Pounds): 206 General Appearance: no apparent distress, alert EENT: PERRL/EOMI, normal ENT inspection, other - exophthalmos Neck: non-tender, normal alignment, supple Cardiovascular: normal peripheral pulses, normal rate, regular rhythm Respiratory/Chest: chest wall non-tender, lungs clear, normal breath sounds Abdomen: normal bowel sounds, non tender, soft Extremities: normal range of motion, non-tender Edema: moderate edema 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
[2017-11-09] MEDS: Furosemide 40mg tab ORAL SCH (13:29)
[2017-11-09 16:00] VITALS: BP 151/100
--- NOTE | 2017-11-09 17:07 | General Progress Note ---
Assessment/Plan Problem List: (1) Hyperglycemia ICD Codes: R73.9 - Hyperglycemia, unspecified SNOMED: 25346514 (2) Noncompliance with medications ICD Codes: Z91.14 - Patient's other noncompliance with medication regimen SNOMED: 544140007 (3) Carpopedal spasm ICD Codes: R29.0 - [place] SNOMED: 55183718 Assessment/Plan glucose values are elevated increase Levemir 24 to 40 units qhs increase Novolog 8 to 12 units ac tid + SSI Subjective Allergies: Coded Allergies: No Known Allergies (Unverified , 11/07/17) All Systems: reviewed and negative except above Subjective events noted Objective Last 24 Hour Vital Signs Date Time Temp Pulse Resp B/P (MAP) Pulse Ox O2 Delivery O2 Flow Rate FiO2 11/09/17 08:29 181/102 11/09/17 08:28 98 181/102 11/09/17 04:00 84 11/09/17 04:00 98.2 84 23 151/108 92 Room Air 98.2 11/09/17 02:42 84 11/09/17 01:02 165/98 11/09/17 00:00 98.0 97 21 165/98 90 Room Air 98.0 11/08/17 21:21 82 154/104 11/08/17 20:00 97.9 91 20 154/104 93 Room Air 97.9 11/08/17 20:00 82 Intake and Output 11/08/17 11/09/17 19:00 07:00 Intake Total 460 ml 1100 ml Balance 460 ml 1100 ml Intake Oral 360 ml IV Total 100 ml 1100 ml # Voids 4 # Bowel Movements 1 Laboratory Tests 11/09/17 07:15: White Blood Count 7.2, Red Blood Count 3.13L, Hemoglobin 10.1L, Hematocrit 34.0L , Mean Corpuscular Volume 109H, Mean Corpuscular Hemoglobin 32.4H, Mean Corpuscular Hemoglobin Concent 29.8L, Red Cell Distribution Width 15.7H, Platelet Count 214, Mean Platelet Volume 7.4, Neutrophils (%) (Auto) 67.1, Lymphocytes (%) (Auto) 22.4, Monocytes (%) (Auto) 6.3, Eosinophils (%) (Auto) 3.3H, Basophils (%) (Auto) 0.9, Sodium Level 138, Potassium Level 3.8, Chloride Level 103, Carbon Dioxide Level 26, Anion Gap 9, Blood Urea Nitrogen 9, Creatinine 0.9, Estimat Glomerular Filtration Rate > 60, Glucose Level 296H, Calcium Level 9.3, Total Bilirubin 0.4, Aspartate Amino Transf (AST/SGOT) 20, Alanine Aminotransferase (ALT/SGPT) 18, Alkaline Phosphatase 139H, Total Protein 7.3, Albumin 2.9L, Globulin 4.4, Albumin/Globulin Ratio 0.7L, Thyroid Stimulating Hormone (TSH) 1.757, Free Thyroxine 1.02 Height (Feet): 5 Height (Inches): 8.00 Weight (Pounds): 206 General Appearance: no apparent distress Neck: normal alignment Cardiovascular: normal rate Respiratory/Chest: chest wall non-tender Abdomen: normal bowel sounds Edema: no edema noted Arm (L), no edema noted Arm (R), no edema noted Leg (L), no edema noted Leg (R), no edema noted Pedal (L), no edema noted Pedal (R), no edema noted Generalized Objective Current Medications Medications (Trade) Dose Ordered Sig/Tadeo Route PRN Reason Start Time Stop Time Status Last Admin Dose Admin Allopurinol (Allopurinol) 300 mg DAILY ORAL 11/08/17 09:00 12/08/17 08:59 11/09/17 08:27 Atorvastatin Calcium (Lipitor) 80 mg BEDTIME ORAL 11/09/17 21:00 12/09/17 20:59 Carvedilol (Coreg) 12.5 mg EVERY 12 HOURS ORAL 11/09/17 21:00 12/07/17 20:59 Dextrose (Dextrose 50%) 25 ml STAT PRN IV Hypoglycemia 11/07/17 18:45 12/07/17 18:44 Dextrose (Dextrose 50%) 50 ml STAT PRN IV Hypoglycemia 11/07/17 18:45 12/07/17 18:44 Folic Acid (Folate) 1 mg DAILY ORAL 11/09/17 09:00 12/09/17 08:59 11/09/17 08:28 Furosemide (Lasix) 40 mg DAILY ORAL 11/09/17 13:15 12/09/17 13:14 11/09/17 13:29 Gabapentin (Neurontin) 300 mg THREE TIMES A DAY ORAL 11/07/17 18:00 12/07/17 17:59 11/09/17 13:29 Heparin Sodium (Porcine) (Heparin 5000 units/ml) 5,000 units EVERY 12 HOURS SUBQ 11/07/17 21:00 12/07/17 20:59 11/09/17 08:30 Hydralazine HCl (Apresoline) 25 mg Q6H PRN ORAL Administer for SBP > 160 11/08/17 11:00 12/08/17 10:59 11/09/17 08:29 Insulin Aspart (NovoLOG) BEFORE MEALS AND HS SUBQ 11/07/17 21:00 12/07/17 20:59 11/09/17 11:36 Insulin Aspart (NovoLOG) 8 units NOVOTIAC SUBQ 11/08/17 06:30 12/08/17 06:29 11/09/17 11:35 Insulin Detemir (Levemir) 24 units BEDTIME SUBQ 11/07/17 21:00 12/07/17 20:59 11/08/17 21:31 Levetiracetam (Keppra) 500 mg Q12HR ORAL 11/08/17 21:00 12/08/17 20:59 11/09/17 08:27 Levothyroxine Sodium (Synthroid) 50 mcg DAILY@0630 ORAL 11/08/17 06:30 12/12/17 06:29 11/09/17 06:25 Lorazepam (Ativan 2mg/ml 1ml) 1 mg Q2H PRN IV For Anxiety 11/07/17 17:30 11/14/17 17:29 11/08/17 11:45 Lorazepam (Ativan) 0.5 mg BID ORAL 11/07/17 18:00 11/14/17 17:59 11/09/17 08:28 Multivitamins (Multivitamins) 1 tab DAILY ORAL 11/09/17 09:00 12/09/17 08:59 11/09/17 08:27 Naproxen (Naprosyn) 500 mg TWICE A DAY ORAL 11/07/17 20:00 12/07/17 19:59 11/09/17 08:26 Ondansetron HCl (Zofran ODT) 4 mg Q6H PRN ORAL Nausea & Vomiting 11/07/17 17:30 12/07/17 17:29 11/09/17 08:26 Pantoprazole (Protonix) 40 mg DAILY ORAL 11/08/17 09:00 12/08/17 08:59 11/09/17 08:28 Paroxetine HCl (Paxil) 20 mg DAILY ORAL 11/08/17 09:00 12/08/17 08:59 11/09/17 08:26 Thiamine HCl (Vitamin B1) 100 mg DAILY ORAL 11/09/17 09:00 12/09/17 08:59 11/09/17 08:26 Tramadol HCl (Ultram) 50 mg Q6H PRN ORAL For Pain 11/07/17 17:30 11/14/17 17:29 11/09/17 08:27 Trazodone HCl (Desyrel) 100 mg BEDTIME ORAL 11/07/17 21:00 12/07/17 20:59 11/08/17 21:21 Item Value Date Time Bedside Blood Glucose 205 mg/dl H 11/09/17 1630 Bedside Blood Glucose 211 mg/dl H 11/09/17 1136 Bedside Blood Glucose 336 mg/dl H 11/09/17 0630 Bedside Blood Glucose 230 mg/dl H 11/08/17 2131 Bedside Blood Glucose 221 mg/dl H 11/08/17 1631 Doug Paiz MD Nov 09, 2017 17:07
--- NOTE | 2017-11-09 18:27 | Pulmonology Progress Note ---
Assessment/Plan Problems: (1) Bipolar 1 disorder (2) Uncontrolled diabetes mellitus (3) Tobacco abuse (4) Seizure disorder (5) Hypothyroidism (6) Gout (7) Noncompliance with medications (8) Hyponatremia (9) ROSIE (acute kidney injury) (10) Hypertensive urgency (11) Anemia (12) Alcoholism (13) Diastolic CHF Assessment/Plan ASSESSMENT: The patient is a very unfortunate 47-year-old female with a history of alcoholism, tobacco use, bipolar disorder, CHF, gout, diabetes, hypothyroidism, obesity, and medication noncompliance presenting with hyperglycemic seizures. She has had multiple similar episodes in the past and was just discharged from [facility] where she was in the neuro critical care unit. The patient is fairly stable from a respiratory standpoint. She had some dyspnea in the setting of hyperglycemia, but she is in no respiratory distress, saturating well and is not short of breath. PROBLEM LIST: 1. Likely hyperglycemic seizure. 2. Diabetes with poor control. Of note with hyperglycemia. 3. Hypothyroidism. 4. Alcoholism. 5. Tobacco use disorder. 6. Bipolar disorder. 7. Gout. 8. CHF. TREATMENT PLAN: 1. Optimize pulmonary hygiene/mobilize as tolerated. 2. PRN O2 3. Monitor respiratory status 4. Monitor BP and volumes, continue PO lasix 5. Continue antiepileptic drugs. 6. Management of blood sugar per Endocrinology. 7. Multivitamin, thiamine, and folate. 8. Monitor for withdrawal. 9. Aspiration precautions. 10. DVT prophylaxis with heparin subcutaneous. 11. Consider psychiatry evaluation. Neuro unavailable Thank you for allowing me to assist in the care of your patient. If any assistance in the future, please do not hesitate to ask. Subjective Allergies: Coded Allergies: No Known Allergies (Unverified , 11/07/17) Subjective AFVSS, BP better but still elevated, started on PO lasix No F/C, no SCHMID, no dizziness, no signs of w/draw, no tremors No Sz's, still wtih MARIANA Objective Last 24 Hour Vital Signs Date Time Temp Pulse Resp B/P (MAP) Pulse Ox O2 Delivery O2 Flow Rate FiO2 11/09/17 17:16 98.2 11/09/17 16:00 98.0 83 18 151/100 98 Room Air 98.0 11/09/17 16:00 87 11/09/17 12:00 85 11/09/17 12:00 97.5 76 18 146/74 97 Room Air 97.5 11/09/17 08:29 181/102 11/09/17 08:28 98 181/102 11/09/17 08:00 89 11/09/17 08:00 97.8 77 18 181/102 98 Room Air 97.8 11/09/17 04:00 84 11/09/17 04:00 98.2 84 23 151/108 92 Room Air 98.2 11/09/17 02:42 84 11/09/17 01:02 165/98 11/09/17 00:00 98.0 97 21 165/98 90 Room Air 98.0 11/08/17 21:21 82 154/104 11/08/17 20:00 97.9 91 20 154/104 93 Room Air 97.9 11/08/17 20:00 82 Intake and Output 11/08/17 11/09/17 19:00 07:00 Intake Total 460 ml 1100 ml Balance 460 ml 1100 ml Intake Oral 360 ml IV Total 100 ml 1100 ml # Voids 4 # Bowel Movements 1 General Appearance: WD/WN, no acute distress HEENT: normocephalic, atraumatic, anicteric, mucous membranes moist Respiratory/Chest: chest wall non-tender, lungs clear, normal breath sounds, no respiratory distress, no accessory muscle use Cardiovascular: normal peripheral pulses, normal rate, regular rhythm Abdomen: normal bowel sounds, soft, non tender, no organomegaly, non distended , no mass Extremities: no cyanosis, no clubbing, other - 1+ MARIANA Microbiology Date/Time Source Procedure Growth Status 11/07/17 10:50 Blood Blood Culture - Preliminary NO GROWTH AFTER 24 HOURS Resulted 11/07/17 10:50 Blood Blood Culture - Preliminary NO GROWTH AFTER 24 HOURS Resulted Laboratory Tests 11/09/17 07:15: White Blood Count 7.2, Red Blood Count 3.13L, Hemoglobin 10.1L, Hematocrit 34.0L , Mean Corpuscular Volume 109H, Mean Corpuscular Hemoglobin 32.4H, Mean Corpuscular Hemoglobin Concent 29.8L, Red Cell Distribution Width 15.7H, Platelet Count 214, Mean Platelet Volume 7.4, Neutrophils (%) (Auto) 67.1, Lymphocytes (%) (Auto) 22.4, Monocytes (%) (Auto) 6.3, Eosinophils (%) (Auto) 3.3H, Basophils (%) (Auto) 0.9, Sodium Level 138, Potassium Level 3.8, Chloride Level 103, Carbon Dioxide Level 26, Anion Gap 9, Blood Urea Nitrogen 9, Creatinine 0.9, Estimat Glomerular Filtration Rate > 60, Glucose Level 296H, Calcium Level 9.3, Total Bilirubin 0.4, Aspartate Amino Transf (AST/SGOT) 20, Alanine Aminotransferase (ALT/SGPT) 18, Alkaline Phosphatase 139H, Total Protein 7.3, Albumin 2.9L, Globulin 4.4, Albumin/Globulin Ratio 0.7L, Thyroid Stimulating Hormone (TSH) 1.757, Free Thyroxine 1.02 Current Medications Medications (Trade) Dose Ordered Sig/Tadeo Route PRN Reason Start Time Stop Time Status Last Admin Dose Admin Allopurinol (Allopurinol) 300 mg DAILY ORAL 11/08/17 09:00 12/08/17 08:59 11/09/17 08:27 Atorvastatin Calcium (Lipitor) 80 mg BEDTIME ORAL 11/09/17 21:00 12/09/17 20:59 Carvedilol (Coreg) 12.5 mg EVERY 12 HOURS ORAL 11/09/17 21:00 12/07/17 20:59 Dextrose (Dextrose 50%) 25 ml STAT PRN IV Hypoglycemia 11/07/17 18:45 12/07/17 18:44 Dextrose (Dextrose 50%) 50 ml STAT PRN IV Hypoglycemia 11/07/17 18:45 12/07/17 18:44 Folic Acid (Folate) 1 mg DAILY ORAL 11/09/17 09:00 12/09/17 08:59 11/09/17 08:28 Furosemide (Lasix) 40 mg DAILY ORAL 11/09/17 13:15 12/09/17 13:14 11/09/17 13:29 Gabapentin (Neurontin) 300 mg THREE TIMES A DAY ORAL 11/07/17 18:00 12/07/17 17:59 11/09/17 17:15 Heparin Sodium (Porcine) (Heparin 5000 units/ml) 5,000 units EVERY 12 HOURS SUBQ 11/07/17 21:00 12/07/17 20:59 11/09/17 08:30 Hydralazine HCl (Apresoline) 25 mg Q6H PRN ORAL Administer for SBP > 160 11/08/17 11:00 12/08/17 10:59 11/09/17 08:29 Insulin Aspart (NovoLOG) BEFORE MEALS AND HS SUBQ 11/07/17 21:00 12/07/17 20:59 11/09/17 17:17 Insulin Aspart (NovoLOG) 12 units NOVOTIAC SUBQ 11/10/17 06:30 12/08/17 06:29 Insulin Detemir (Levemir) 40 units BEDTIME SUBQ 11/09/17 21:00 12/07/17 20:59 Levetiracetam (Keppra) 500 mg Q12HR ORAL 11/08/17 21:00 12/08/17 20:59 11/09/17 08:27 Levothyroxine Sodium (Synthroid) 50 mcg DAILY@0630 ORAL 11/08/17 06:30 12/12/17 06:29 11/09/17 06:25 Lorazepam (Ativan 2mg/ml 1ml) 1 mg Q2H PRN IV For Anxiety 11/07/17 17:30 11/14/17 17:29 11/08/17 11:45 Lorazepam (Ativan) 0.5 mg BID ORAL 11/07/17 18:00 11/14/17 17:59 11/09/17 17:17 Multivitamins (Multivitamins) 1 tab DAILY ORAL 11/09/17 09:00 12/09/17 08:59 11/09/17 08:27 Naproxen (Naprosyn) 500 mg TWICE A DAY ORAL 11/07/17 20:00 12/07/17 19:59 11/09/17 17:16 Ondansetron HCl (Zofran ODT) 4 mg Q6H PRN ORAL Nausea & Vomiting 11/07/17 17:30 12/07/17 17:29 11/09/17 08:26 Pantoprazole (Protonix) 40 mg DAILY ORAL 11/08/17 09:00 12/08/17 08:59 11/09/17 08:28 Paroxetine HCl (Paxil) 20 mg DAILY ORAL 11/08/17 09:00 12/08/17 08:59 11/09/17 08:26 Thiamine HCl (Vitamin B1) 100 mg DAILY ORAL 11/09/17 09:00 12/09/17 08:59 11/09/17 08:26 Tramadol HCl (Ultram) 50 mg Q6H PRN ORAL For Pain 11/07/17 17:30 11/14/17 17:29 11/09/17 08:27 Trazodone HCl (Desyrel) 100 mg BEDTIME ORAL 11/07/17 21:00 12/07/17 20:59 11/08/17 21:21 Joss Corral MD Nov 09, 2017 18:27
[2017-11-09 20:00] VITALS: BP 160/92
[2017-11-09] MEDS: TraZODone 100mg tab ORAL SCH (20:40)
[2017-11-09] MEDS: Atorvastatin 80mg tab ORAL SCH (20:40)
[2017-11-09] MEDS: Carvedilol 12.5mg tab ORAL SCH (20:41)
[2017-11-09] MEDS: LORazepam Inj 2mg/ml 1ml IV PRN (21:05)
[2017-11-09] MEDS: Levemir Flexpen SUBQ SCH (21:05)
[2017-11-10 04:00] VITALS: BP 167/108
[2017-11-10] MEDS: NovoLOG Insulin Flexpen SUBQ SCH ×7 (06:25→20:28)
[2017-11-10] MEDS: HydrALAZINE 25mg tab ORAL PRN (06:28)
[2017-11-10] MEDS: LORazepam Inj 2mg/ml 1ml IV PRN (06:40)
[2017-11-10] MEDS: traMADol 50mg tab ORAL PRN (06:41)
[2017-11-10 07:11] LABS: EOSINOPHILS % (AUTO) 3.3 % (0.0-3.0); HEMATOCRIT 36.2 % (37.0-47.0); HEMOGLOBIN 10.5 G/DL (12.0-16.0); MEAN CORPUSCULAR VOLUME 110 FL (80-99); MONOCYTES % (AUTO) 6.2 % (1.0-10.0); NEUTROPHILS % (AUTO) 62.5 % (45.0-75.0); PLATELET COUNT 218 K/UL (150-450); RED BLOOD COUNT 3.29 M/UL (4.20-5.40); RED CELL DISTRIBUTION WIDTH 15.5 % (11.6-14.8); WHITE BLOOD COUNT 6.2 K/UL (4.8-10.8)
[2017-11-10 07:59] LABS: ALANINE AMINOTRANSFERASE 21 U/L (12-78); ALBUMIN 3.1 G/DL (3.4-5.0); ALBUMIN/GLOBULIN RATIO 0.7 (1.0-2.7); ALKALINE PHOSPHATASE 139 U/L (46-116); ANION GAP 10 mmol/L (5-15); ASPARTATE AMINO TRANSFERASE 28 U/L (15-37); BILIRUBIN,TOTAL 0.5 MG/DL (0.2-1.0); BLOOD UREA NITROGEN 13 mg/dL (7-18); CALCIUM 9.6 MG/DL (8.5-10.1); CARBON DIOXIDE 26 MMOL/L (21-32); CHLORIDE 101 MMOL/L (98-107); CREATININE 1.3 MG/DL (0.55-1.30); POTASSIUM 4.4 MMOL/L (3.5-5.1); SODIUM 137 MMOL/L (136-145)
[2017-11-10 08:00] VITALS: BP 172/104
[2017-11-10] MEDS: PARoxetine 20mg tab ORAL SCH (09:08)
[2017-11-10] MEDS: Furosemide 40mg tab ORAL SCH (09:08)
[2017-11-10] MEDS: LORazepam 0.5mg tab ORAL SCH ×2 (09:08→17:14)
[2017-11-10] MEDS: Heparin 5000 units/ml inj SUBQ SCH ×2 (09:09→20:30)
[2017-11-10] MEDS: Carvedilol 12.5mg tab ORAL SCH ×2 (09:10→20:31)
[2017-11-10] MEDS: Naproxen 500mg tab ORAL SCH ×2 (09:10→17:14)
[2017-11-10] MEDS: Thiamine 100mg tab ORAL SCH (09:11)
[2017-11-10] MEDS ORDERED: FUROSEMIDE40 MG ORAL (10:23)
[2017-11-10] MEDS ORDERED: NORVASC5 MG ORAL (10:23)
[2017-11-10] MEDS ORDERED: NOVOLOG100 UNITS1 SUBQ (10:23)
[2017-11-10] MEDS ORDERED: COREG12.5 MG ORAL (10:23)
[2017-11-10] MEDS ORDERED: LEVEMIR FL100 UNIT/1 SUBQ (10:23)
[2017-11-10] MEDS ORDERED: LIPITOR80 MG ORAL ×2 (10:31→10:33)
[2017-11-10 12:00] VITALS: BP 186/108
[2017-11-10] MEDS ORDERED: NovoLOG Insulin Flexpen SUBQ SCH ×2 (13:45→21:00)
[2017-11-10 16:00] VITALS: BP 191/120
[2017-11-10 20:00] VITALS: BP 109/68
[2017-11-10] MEDS: Levemir Flexpen SUBQ SCH (20:29)
[2017-11-10] MEDS: TraZODone 100mg tab ORAL SCH (20:31)
[2017-11-10] MEDS: Atorvastatin 80mg tab ORAL SCH (20:31)
[2017-11-10] MEDS ORDERED: Levemir Flexpen SUBQ SCH (21:15)
[2017-11-11] VITALS: BP 124/61
[2017-11-11] MEDS: LORazepam Inj 2mg/ml 1ml IV PRN ×2 (03:20→06:25)
[2017-11-11 04:00] VITALS: BP 141/96
[2017-11-11] MEDS: NovoLOG Insulin Flexpen SUBQ SCH ×2 (06:17→06:18)
--- NOTE | 2017-11-11 07:13 | General Progress Note ---
Assessment/Plan Problem List: (1) Hyperglycemia ICD Codes: R73.9 - Hyperglycemia, unspecified SNOMED: 57573795 (2) Noncompliance with medications ICD Codes: Z91.14 - Patient's other noncompliance with medication regimen SNOMED: 268086766 (3) Carpopedal spasm ICD Codes: R29.0 - [place] SNOMED: 59802162 Assessment/Plan glucose values are elevated increase Levemir to 60 units qhs increase Novolog to 20 units ac tid + SSI Subjective Allergies: Coded Allergies: No Known Allergies (Unverified , 11/07/17) All Systems: reviewed and negative except above Subjective events noted Objective Last 24 Hour Vital Signs Date Time Temp Pulse Resp B/P (MAP) Pulse Ox O2 Delivery O2 Flow Rate FiO2 11/11/17 04:00 98.3 80 20 141/96 94 Room Air 98.3 11/11/17 04:00 80 11/11/17 00:00 98.0 79 19 124/61 98 Room Air 98.0 11/11/17 00:00 82 11/10/17 20:31 86 109/68 11/10/17 20:00 97.3 86 18 109/68 98 Room Air 97.3 11/10/17 20:00 89 11/10/17 16:00 97.9 72 18 191/120 92 Room Air 97.9 11/10/17 16:00 66 11/10/17 12:00 97.1 78 18 186/108 94 Room Air 97.1 11/10/17 12:00 78 11/10/17 11:19 78 192/120 11/10/17 09:10 85 172/104 11/10/17 08:00 92 11/10/17 08:00 97.2 85 18 172/104 94 Room Air 97.2 Intake and Output 11/10/17 11/11/17 19:00 07:00 Intake Total 680 ml 150 ml Balance 680 ml 150 ml Intake Oral 680 ml 150 ml # Voids 6 2 Height (Feet): 5 Height (Inches): 8.00 Weight (Pounds): 206 General Appearance: no apparent distress Neck: normal alignment Cardiovascular: normal rate Respiratory/Chest: chest wall non-tender Abdomen: normal bowel sounds Pelvis: normal external exam Objective Item Value Date Time Bedside Blood Glucose 257 mg/dl H 11/11/17 0630 Bedside Blood Glucose Critically High Result 11/10/17 2233 Bedside Blood Glucose 489 mg/dl H 11/10/17 1719 Bedside Blood Glucose 499 mg/dl H 11/10/17 1439 Doug Paiz MD Nov 11, 2017 07:13
[2017-11-11 08:00] VITALS: BP 144/84
--- NOTE | 2017-11-11 08:23 | General Progress Note ---
Assessment/Plan Status: stable Assessment/Plan (1) Seizure disorder ICD Codes: G40.909 - Epilepsy, unspecified, not intractable, without status epilepticus SNOMED: 228234401 (2) Uncontrolled diabetes mellitus ICD Codes: E11.65 - Type 2 diabetes mellitus with hyperglycemia SNOMED: 70646573, 657364773 (3) Hypothyroidism ICD Codes: E03.9 - Hypothyroidism, unspecified SNOMED: 53765195 (4) Tobacco abuse ICD Codes: Z72.0 - Tobacco use SNOMED: 061345832 (5) Gout ICD Codes: M10.9 - Gout, unspecified SNOMED: 51051083 (6) Bipolar 1 disorder ICD Codes: F31.9 - Bipolar disorder, unspecified SNOMED: 013266987 (7) Lives with SNOMED: 753002971 (8) Carpopedal spasm ICD Codes: R29.0 - [place] SNOMED: 39342678 (9) Noncompliance with medications ICD Codes: Z91.14 - Patient's other noncompliance with medication regimen SNOMED: 195338134 (10) Hyponatremia ICD Codes: E87.1 - Hypo-osmolality and hyponatremia SNOMED: 58132737 (11) ROSIE (acute kidney injury) ICD Codes: N17.9 - Acute kidney failure, unspecified SNOMED: 38097001 (12) Hypertensive urgency ICD Codes: I16.0 - Hypertensive urgency SNOMED: 505983822 (13) Anemia ICD Codes: D64.9 - Anemia, unspecified SNOMED: 997284750 (14) Alcoholism ICD Codes: F10.20 - Alcohol dependence, uncomplicated SNOMED: 2421327 (15) Diastolic CHF ICD Codes: I50.30 - Unspecified diastolic (congestive) heart failure SNOMED: 42737246, 975916493 Status: stable, progressing Assessment/Plan - Neurology unavailable until Sunday - Endocrinology and pulmonology consulted, appreciate rec's - Seizure likely 2/2 hyperglycemia with BS 601 - CT head with chronic changes. no acute pathology - EEG done 11/08. Prelim showing mild generalized slowing with no clear epileptic discharges - utox negative. serum alcohol unremarkable. - CXR with no acute process - monitor neuro status - A1c 12 - Increase levemir to 40 units qhS - Increase novolog to 12 units TID AC - SSI - Diabetes education - Monitor blood sugars. No e/o DKA - Check TSH, fT4 - Cont coreg 12.5mg BID - Add amlodipine 5mg daily - Consider adding JENNIFER/ARB if Cr remains stable. Will hold off for now given recent ROSIE - Monitor blood pressure. - EKG sinus tachycardia at 105bpm - ECHO with 60-65% EF with no wall motion abnormality - TG 288, LDL 125, HDL 38 - BNP 220 - Check venous duplex to r/o DVT - start lasix 40mg PO qd given BLE edema - Cont atorvastatin 80mg qhs - Monitor Cr - Monitor Na. Likely pseudohyponatremia 2/2 hyperglycemia. Resolved - Monitor H/H - Encourage compliance - Refusing psychiatry eval. Denies SI/HI - Pain control and supportive care - Continue home meds including keppra, synthroid, coreg, allopurinol - Continue multivitamin, folate, thiamine PCP: Dr. Case [phone] Attempted to call several times but no one was picking up. DVT Prophylaxis: SCD, HSQ Code Status: Full Hospital Classification Declaration: Based on this initial evaluation, and depending on the patient's clinical course, I anticipate that this patient will require hospitalization for 1-2 days for seizure and hyperglycemia and close respiratory/hemodynamic monitoring. Disposition: Once the patient is stable to leave the hospital, I anticipate the patient will likely be discharged to the following environment: home w I spent 42 minutes on this patient's case, and >50% were dedicated to counseling and/or care coordination. Discussed with patient/family, nursing staff, SW/CM, pulmonology, cardiology, and endocrinology regarding clinical status, treatment course, and disposition planning. Time of note may not reflect time of encounter. Subjective Date patient seen: Nov 10, 2017 Time patient seen: 08:10 ROS Limited/Unobtainable: No Constitutional: Reports: no symptoms HEENT: Reports: no symptoms Cardiovascular: Reports: no symptoms Respiratory: Reports: no symptoms Gastrointestinal/Abdominal: Reports: no symptoms Genitourinary: Reports: no symptoms Neurologic/Psychiatric: Reports: no symptoms Endocrine: Reports: no symptoms Hematologic/Lymphatic: Reports: no symptoms Allergies: Coded Allergies: No Known Allergies (Unverified , 11/07/17) Subjective Pt was planned for discharge today (11/10) but she continued to have elevated BG up to 400s. BPs also somewhat uncontrolled w/ SBP 160s Objective Last 24 Hour Vital Signs Date Time Temp Pulse Resp B/P (MAP) Pulse Ox O2 Delivery O2 Flow Rate FiO2 11/11/17 04:00 98.3 80 20 141/96 94 Room Air 98.3 11/11/17 04:00 80 11/11/17 00:00 98.0 79 19 124/61 98 Room Air 98.0 11/11/17 00:00 82 11/10/17 20:31 86 109/68 11/10/17 20:00 97.3 86 18 109/68 98 Room Air 97.3 11/10/17 20:00 89 11/10/17 16:00 97.9 72 18 191/120 92 Room Air 97.9 11/10/17 16:00 66 11/10/17 12:00 97.1 78 18 186/108 94 Room Air 97.1 11/10/17 12:00 78 11/10/17 11:19 78 192/120 11/10/17 09:10 85 172/104 Intake and Output 11/10/17 11/11/17 19:00 07:00 Intake Total 680 ml 150 ml Balance 680 ml 150 ml Intake Oral 680 ml 150 ml # Voids 6 2 Height (Feet): 5 Height (Inches): 8.00 Weight (Pounds): 206 Objective General: alert, cooperative, no distress, appears stated age Head: normocephalic, without obvious abnormality, atraumatic Eyes: conjunctivae/corneas clear. PERRL, EOM's intact Throat: lips, mucosa, and tongue normal. MMM Neck: supple, symmetrical, trachea midline, and no JVD Lungs: clear to auscultation bilaterally Heart: regular rate and rhythm, S1, S2 normal, no murmur, click, rub or gallop Abdomen: soft, non-tender, non-distended, bowel sounds normal; no masses or organomegaly Extremities: extremities normal, atraumatic, no cyanosis or edema Pulses: 2+ and symmetric Skin: skin color, texture, turgor normal; no rashes or lesions Neurologic: grossly normal, no focal deficits Cyn Oquendo M.D. Nov 11, 2017 08:23
[2017-11-11] MEDS: PARoxetine 20mg tab ORAL SCH (09:19)
[2017-11-11] MEDS: Thiamine 100mg tab ORAL SCH (09:19)
[2017-11-11] MEDS: LORazepam 0.5mg tab ORAL SCH (09:20)
[2017-11-11] MEDS: Carvedilol 12.5mg tab ORAL SCH (09:20)
[2017-11-11] MEDS: Naproxen 500mg tab ORAL SCH (09:20)
[2017-11-11] MEDS: Furosemide 40mg tab ORAL SCH (09:20)
[2017-11-11 09:21] VITALS: BP 144/84
[2017-11-11] MEDS: Heparin 5000 units/ml inj SUBQ SCH (09:26)
[2017-11-11] MEDS ORDERED: NOVOLOG100 UNITS1 SUBQ (09:43)
[2017-11-11] MEDS ORDERED: LANTUS5 UNITS SUBQ (09:43)
[2017-11-11] MEDS ORDERED: NovoLOG Insulin Flexpen SUBQ SCH (11:50)
[2017-11-11] MEDS ORDERED: Levemir Flexpen SUBQ SCH (21:00)
--- NOTE | 2017-11-12 09:20 | General Progress Note ---
Assessment/Plan Status: stable Assessment/Plan (1) Seizure disorder ICD Codes: G40.909 - Epilepsy, unspecified, not intractable, without status epilepticus SNOMED: 830350849 (2) Uncontrolled diabetes mellitus ICD Codes: E11.65 - Type 2 diabetes mellitus with hyperglycemia SNOMED: 03670672, 509319842 (3) Hypothyroidism ICD Codes: E03.9 - Hypothyroidism, unspecified SNOMED: 92680133 (4) Tobacco abuse ICD Codes: Z72.0 - Tobacco use SNOMED: 106209837 (5) Gout ICD Codes: M10.9 - Gout, unspecified SNOMED: 59987019 (6) Bipolar 1 disorder ICD Codes: F31.9 - Bipolar disorder, unspecified SNOMED: 482034730 (7) Lives with SNOMED: 282971162 (8) Carpopedal spasm ICD Codes: R29.0 - [place] SNOMED: 10374820 (9) Noncompliance with medications ICD Codes: Z91.14 - Patient's other noncompliance with medication regimen SNOMED: 665902215 (10) Hyponatremia ICD Codes: E87.1 - Hypo-osmolality and hyponatremia SNOMED: 77972934 (11) ROSIE (acute kidney injury) ICD Codes: N17.9 - Acute kidney failure, unspecified SNOMED: 42825754 (12) Hypertensive urgency ICD Codes: I16.0 - Hypertensive urgency SNOMED: 330526354 (13) Anemia ICD Codes: D64.9 - Anemia, unspecified SNOMED: 509372105 (14) Alcoholism ICD Codes: F10.20 - Alcohol dependence, uncomplicated SNOMED: 0874948 (15) Diastolic CHF ICD Codes: I50.30 - Unspecified diastolic (congestive) heart failure SNOMED: 25363924, 382430911 Status: stable, progressing Assessment/Plan - Neurology unavailable until Sunday - Endocrinology and pulmonology consulted, appreciate rec's - Seizure likely 2/2 hyperglycemia with BS 601 - CT head with chronic changes. no acute pathology - EEG done 11/08. Prelim showing mild generalized slowing with no clear epileptic discharges - utox negative. serum alcohol unremarkable. - CXR with no acute process - monitor neuro status - A1c 12 - Increases levemir to 60 units qhS - Increases novolog to 20 units TID AC - SSI - Diabetes education - Monitor blood sugars. No e/o DKA - Check TSH, fT4 - Cont coreg 12.5mg BID - Added amlodipine 5mg daily - Consider adding JENNIFER/ARB if Cr remains stable. Will hold off for now given recent ROSIE - Monitor blood pressure. - EKG sinus tachycardia at 105bpm - ECHO with 60-65% EF with no wall motion abnormality - TG 288, LDL 125, HDL 38 - BNP 220 - Check venous duplex to r/o DVT--prelim per RN is neg - Cont lasix 40mg PO qd given BLE edema - Cont atorvastatin 80mg qhs - Monitor Cr - Monitor Na. Likely pseudohyponatremia 2/2 hyperglycemia. Resolved - Monitor H/H - Encourage compliance - Refusing psychiatry eval. Denies SI/HI - Pain control and supportive care - Continue home meds including keppra, synthroid, coreg, allopurinol - Continue multivitamin, folate, thiamine - Medically stable for d/c today PCP: Dr. Case [phone] Attempted to call several times but no one was picking up. DVT Prophylaxis: SCD, HSQ Code Status: Full Hospital Classification Declaration: Based on this initial evaluation, and depending on the patient's clinical course, I anticipate that this patient will require hospitalization for 1-2 days for seizure and hyperglycemia and close respiratory/hemodynamic monitoring. Disposition: Once the patient is stable to leave the hospital, I anticipate the patient will likely be discharged to the following environment: home w I spent 40 minutes on this patient's case, and >50% were dedicated to counseling and/or care coordination. Discussed with patient/family, nursing staff, SW/CM, pulmonology, cardiology, and endocrinology regarding clinical status, treatment course, and disposition planning. Time of note may not reflect time of encounter. Subjective Date patient seen: Nov 11, 2017 Time patient seen: 09:18 ROS Limited/Unobtainable: No Constitutional: Reports: no symptoms HEENT: Reports: no symptoms Cardiovascular: Reports: no symptoms Respiratory: Reports: no symptoms Gastrointestinal/Abdominal: Reports: no symptoms Genitourinary: Reports: no symptoms Neurologic/Psychiatric: Reports: no symptoms Endocrine: Reports: no symptoms Hematologic/Lymphatic: Reports: no symptoms Allergies: Coded Allergies: No Known Allergies (Unverified , 11/07/17) Subjective Pt was planned for discharge yesterday but she continued to have elevated BG up to 400s. BPs also somewhat uncontrolled w/ SBP 160s. Pt agreed to stay overnight. Insulin adjusted and sugars now improved to high 100s to 200s. SBP also improved to 140s. Pt feel well and wants to go home Objective Last 24 Hour Vital Signs Date Time Temp Pulse Resp B/P (MAP) Pulse Ox O2 Delivery O2 Flow Rate FiO2 11/11/17 09:21 78 144/84 11/11/17 09:20 78 144/84 Height (Feet): 5 Height (Inches): 8.00 Weight (Pounds): 206 Objective General: alert, cooperative, no distress, appears stated age Head: normocephalic, without obvious abnormality, atraumatic Eyes: conjunctivae/corneas clear. PERRL, EOM's intact Throat: lips, mucosa, and tongue normal. MMM Neck: supple, symmetrical, trachea midline, and no JVD Lungs: clear to auscultation bilaterally Heart: regular rate and rhythm, S1, S2 normal, no murmur, click, rub or gallop Abdomen: soft, non-tender, non-distended, bowel sounds normal; no masses or organomegaly Extremities: extremities normal, atraumatic, no cyanosis or edema Pulses: 2+ and symmetric Skin: skin color, texture, turgor normal; no rashes or lesions Neurologic: grossly normal, no focal deficits Cyn Oquendo M.D. Nov 12, 2017 09:20
--- NOTE | 2017-11-12 11:50 | Discharge Summary ---
Discharge Summary Discharge Summary _ DATE OF ADMISSION: 11/07/2017 DATE OF DISCHARGE: 11/11/2017 REASON FOR ADMISSION: 47-year-old female, current daily smoker and alcoholic , with history of seizure disorder, diabetes, CHF, and gout, discharged from [facility] on the 10/14/2017 after being admitted there with seizure. She was emergently intubated in the field, admitted to the ICU for further management and discharged in good condition. She presented to [facility] with same complaints once again, questionable witnessed seizure activity, altered mental status, generalized spasms and feeling unwell with numbness and tingling. She had not been compliant with her medications since discharge. On evaluation she was tachycardiac blood pressure was initially stable but then became elevated. Laboratory workup revealed no leukocytosis, initially stable hemoglobin and hematocrit. Glucose 601. Anion gap was within normal limits. CO2 within normal limits . No evidence of DKA. Troponin negative. CT of the head revealed no acute intracranial pathology. Urinalysis revealed no evidence of UTI .urine toxicology screen was negative serum alcohol level was less than 3 reveals sinus tachycardia. No acute ischemic changes sodium 132 patient started on aggressive on IV hydration and admitted with diagnosis off follow-up diabetes mellitus out of control with a hyperglycemia hypertensive urgency acute kidney injury hyponatremia seizure likely hyperglycemia bipolar disorder noncompliance alcoholism carpopedal spasm sodium 132 CONSULTANTS: pulmonary Dr. Corral research assistant Dr. Paiz [facility] COURSE: Patient was admitted to telemetry floor. Patient started on aggressive hydration. No evidence of infection. Radiology Special Procedure Tech and fermentation manager closely followed. Blood sugar was managed as per research assistant recommendations with long- acting Levemir , pre-meal Novolog and sliding scale of insulin as needed. No evidence fo DKA Hemoglobin A1c 12.2, clearly not at goal . Stressed importance of compliance with medication regimen. TSH , T4 were within normal limits , current dose of levothyroxine was continued. Blood pressure was managed with beta marquez ; amlodipine was added to improve blood pressure control. Consideration was given to add JENNIFER or ARB but given evidence of acute kidney injury, currently was on hold. . Echocardiogram revealed preserved ejection fraction 60-65%, no evidence of wall motion abnormality. Lipid panel revealed elevated triglycerides 288 and LDL 125. High-dose statin was continued. Patient was educated on low-fat ,low-cholesterol ,no concentrated sweets diabetic diet. Venous duplex bilateral lower extremity was negative. Oral Lasix was continued with close monitoring of volumes and cardiorenal parameters. Renal parameters and electrolytes were closely monitored, electrolytes were corrected as needed ,and nephrotoxins were avoided. Acute kidney injury resolving Neurologist was not available until Sunday. EEG done 11/08 with mild generalized slowing with no clear epileptic discharges Seizure precaution maintained. Seizure was likely due to severe hyperglycemia. Patient started on antiepileptic regimen. Multivitamin, folic acid and thiamine were started. Patient was closely observed for withdrawal symptoms. Patient was counseled on abstinence from ETOH. Patient declined psychiatric evaluation Aspiration precautions maintained. Patient declined SI/HI. DVT prophylaxis provided. Pain management addressed. Bowel regimen instituted. Hemoglobin and hematocrit were closely monitored with goal to keep hemoglobin above 7, remained stable. Supportive care provided. Patient was stable for discharge home with outpatient follow-up FINAL DIAGNOSES: Diabetes mellitus out of control with hyperglycemia Likely hyperglycemic seizure Hypertensive urgency Acute kidney injury Hyponatremia Tobacco abuse Hypothyroidism Bipolar disorder Noncompliance Anemia Alcoholism Diastolic congestive heart failure carpopedal spasm DISCHARGE MEDICATIONS: See Medication Reconciliation list. DISCHARGE INSTRUCTIONS: Patient was discharged home. Outpatient follow-up with the primary care provider in one week. Stress importance of compliance with medication regimen I have been assigned to dictate discharge summary for this account. I was not involved in the patient's management. Margarita Manzo NP Nov 12, 2017 11:50
--- NOTE | 2017-11-12 22:00 | Electroencephalogram ---
DATE OF PROCEDURE: 11/08/2017 REQUESTING PHYSICIAN: Joss Corral M.D. READING PHYSICIAN: Rj Haines M.D. HISTORY: This EEG was performed on a 47-year-old lady with history of multiple medical problems including COPD, congestive heart failure, bipolar disorder, diabetes mellitus, and respiratory problems, who was hospitalized for an alteration in her mental state and a questionable seizure. The purpose of this EEG was to evaluate the patient for the degree and type of cerebral dysfunction and to exclude ongoing ictal or interictal phenomena. TECHNICAL NOTE: This EEG was performed on a [employer]MD(TM) by [employer] with electrodes placed on the scalp according to the international 10-20 system. [id number] and [id number] montages were used. The EEG was technically satisfactory and was performed in the awake, drowsy, and sleep states. OBSERVATION: In the best awake state, the background activity consisted of 6 to 7 hertz posterior rhythmic theta activity. Drowsiness was characterized by irregular 4 to 5 hertz theta with intermixed delta frequencies. Stage 2 sleep was characterized by further slowing of the background in the delta and theta range, the presence of vertex waves, and 12 to 14 hertz sleep spindles. No definite focal abnormalities or epileptiform discharges were seen. IMPRESSION: This is an abnormal EEG characterized by slowing of the background in the 6 to 7 hertz theta range in the best awake state. COMMENT: The study is consistent with an encephalopathy of a moderate degree. Please note that the lack of interictal discharges does not rule out a seizure disorder. Rj Haines M.D. DR: TORREY JOB#: [id number] CC:
== END 2017-11-11 11:30 | disposition home or self-care (01) | DRG 420 ==
LOC: EDBD 10:41 → EMR 12:34 → EDBEDREQSVC 13:10 → EDBEDREQ 13:10 → 2E 14:07 → EDBEDREQ 14:46 → 2E 15:38
DX: E11.65 Type 2 diabetes mellitus with hyperglycemia (principal); N17.9 Acute kidney failure, unspecified; R56.9 Unspecified convulsions; I11.0 Hypertensive heart disease with heart failure; I50.30 Unspecified diastolic (congestive) heart failure; R29.0 Tetany; F17.200 Nicotine dependence, unspecified, uncomplicated; E03.9 Hypothyroidism, unspecified; F31.9 Bipolar disorder, unspecified; E87.1 Hypo-osmolality and hyponatremia; I16.0 Hypertensive urgency; D64.9 Anemia, unspecified; Z79.4 Long term (current) use of insulin; Z91.14 Patient's other noncompliance with medication regimen; M10.9 Gout, unspecified; F10.20 Alcohol dependence, uncomplicated; E66.9 Obesity, unspecified
CPT/HCPCS: 36415; 70450; 71045; 80053; 80061; 80299; 80307; 80329; 81003; 82009; 82140; 82550; 82553; 82962; 83036; 83735; 83880; 84439; 84443; 84484; 85025; 87040; 93005; 93306; 93970; 95819; 99285; J1815; S5561

== ENCOUNTER 2018-02-13 11:51 | Emergency (ER) | payer OTHER ==
[~2018-02-13] VITALS: Ht 170.2 cm; Wt 77.1 kg
[~2018-02-13 11:51] MED LIST: ALLOPURINOL300 M1 ORAL; COREG12.5 MG ORAL; COREG6.25 MG ORAL; FUROSEMIDE40 MG ORAL; GABAPENTIN300 MG ORAL; HUMULIN R100 UNIT/1 SUBQ; LANTUS5 UNITS SUBQ; LEVEMIR FL100 UNIT/1 SUBQ; LEVOTHYROXINE200 MCG PO; LIPITOR80 MG ORAL; LORAZEPAM0.5 MG ORAL; NAPROXEN CR500 MG PO; NORVASC5 MG ORAL; NOVOLOG100 UNITS1 SUBQ; OMEPRAZOLE40 M1 ORAL; PAROXETINE HCL20 MG PO; TRAMADOL HCL50 MG ORAL; TRAZODONE HCL100 MG ORAL; UNOBMED; VIVITROL380 MG IM; ZOFRAN4 M3 ORAL
[2018-02-13 12:05] VITALS: BP 121/91
[2018-02-13 12:35] VITALS: BP 126/99
[2018-02-13] MEDS ORDERED: BACITRACIN15 GM TOPIC (12:41)
--- NOTE | 2018-02-13 12:41 | Emergency Room Report ---
History of Present Illness General Chief Complaint: Wound Recheck/Suture Removal Present Illness HPI This patient c/o rash/pain lower abdomen about a day. No trauma/injury, no fever. Normal po intake. +hx. similar. No trauma, no fever, no shortness of breath, no travel history, no leg swelling , no chest pain, no diaphoresis, no exertional complaints, no nausea, no vomiting, no diarrhea, no abdominal pain. Tolerating po fine, normal urinary output, normal bm. No syncope, LOC, dizziness, lightheadedness. Allergies: Coded Allergies: No Known Allergies (Unverified , 11/07/17) Nursing Documentation-PMH Hx Cardiac Problems: No Hx Hypertension: Yes Hx Asthma: Yes Hx Diabetes: Yes Hx Cancer: No Hx Gastrointestinal Problems: No History Of Psychiatric Problem: Yes - bipolar Hx Seizures: Yes Review of Systems Constitutional: Reports: no symptoms Eye: Reports: no symptoms ENT: Reports: no symptoms Respiratory: Reports: no symptoms Cardiovascular: Reports: no symptoms Gastrointestinal: Reports: no symptoms Genitourinary: Reports: no symptoms Musculoskeletal: Reports: no symptoms Skin: Reports: see HPI, rash Psychiatric: Reports: no symptoms Neurological: Reports: no symptoms Endocrine: Reports: no symptoms Hematologic/Lymphatic: Reports: no symptoms Allergic: Reports: no symptoms All Other Systems: negative except mentioned in HPI Physical Exam Vital Signs Date Time Temp Pulse Resp B/P (MAP) Pulse Ox O2 Delivery O2 Flow Rate FiO2 02/13/18 11:40 98.4 95 20 118/81 98 98.4 Sp02 EP Interpretation: reviewed, normal General Appearance: normal inspection, well appearing, no apparent distress, alert, GCS 15, non-toxic Head: normocephalic, atraumatic Eyes: bilateral eye normal inspection, bilateral eye PERRL, bilateral eye EOMI ENT: normal ENT inspection, hearing grossly normal, normal pharynx, no angioedema, normal voice, moist mucus membranes Neck: normal inspection, full range of motion, supple, no meningismus, no bony tend Respiratory: normal inspection, lungs clear, normal breath sounds, no rhonchi, no respiratory distress, no retraction, no accessory muscle use, no wheezing Cardiovascular #1: normal inspection, regular rate, rhythm, no edema Gastrointestinal: normal bowel sounds, soft, non-distended, overweight - morbidly obese, panus. under panus middle and left there is excoriated skin, damp. no actual cellulitis Musculoskeletal: gait/station normal, normal range of motion Neurologic: normal inspection, alert, oriented x3, responsive, motor strength/ tone normal Psychiatric: normal inspection, judgement/insight normal, memory normal Suicide Risk Assessment: Suicidal Ideation: No Had intent to initiate attempt: No Pt's plan for suicide attempt: No Has means to complete attempt: No Skin: normal inspection, normal color, no rash, warm/dry Medical Decision Making Diagnostic Impression: Primary Impression: Excoriation Additional Impression: Obesity ER Course Educated re daily bath, gently dry, keep dry can use baby powder and towels. OK to use bacitracin once/day also. Last Vital Signs Date Time Temp Pulse Resp B/P (MAP) Pulse Ox O2 Delivery O2 Flow Rate FiO2 02/13/18 11:40 98.4 95 20 118/81 98 98.4 Status: unchanged Disposition: HOME, SELF-CARE Condition: Stable Scripts Bacitracin (Bacitracin) 28.4 Gm Oint...g. 1 APPLIC TOPIC THREE TIMES A DAY for 7 Days, GM Prov: Kosta Oliva M.D. 02/13/18 Patient Instructions: Wound Check Kosta Oliva M.D. Feb 13, 2018 12:41
[2018-02-13 13:26] VITALS: BP 125/95
[2018-02-13 13:33] VITALS: BP 125/95
== END 2018-02-13 13:33 | disposition home or self-care (01) ==
LOC: EDBD 11:51 → EMR 12:45
DX: F42.4 Excoriation (skin-picking) disorder (principal); E66.9 Obesity, unspecified; Z68.26 Body mass index [BMI] 26.0-26.9, adult; E11.9 Type 2 diabetes mellitus without complications; I10 Essential (primary) hypertension; F31.9 Bipolar disorder, unspecified; J45.909 Unspecified asthma, uncomplicated
CPT/HCPCS: 99282

== ENCOUNTER 2018-03-10 10:07 | Emergency (ER) | payer OTHER ==
[~2018-03-10] VITALS: Ht 170.2 cm; Wt 79.4 kg
[~2018-03-10 10:07] MED LIST changes: +BACITRACIN15 GM TOPIC
--- NOTE | 2018-03-10 10:24 | Emergency Room Report ---
History of Present Illness General Chief Complaint: Abdominal Pain Source: Patient, EMS Present Illness HPI Patient is had abdominal pain nausea vomiting diarrhea for one week. She is evaluated [facility] but claims that they didn't help her. She has a history of diabetes and is on insulin. She states her blood sugars of been high recently. The diarrhea was cream-colored according to her. She denies any melena. She's not vomiting any blood. She can't keep down liquids at this time. Pain rated 10/10, crampy pressure, diffuse abdomen, not radiating. The patient was admitted here before she had hyperglycemia. H/O Bipolar disorder. + Anxiety. Some stressful situation with daughter, but patient won't elaborate. No joint pain, headache, rashes, dysuria, neck pain, calf pain, URI sy. Allergies: Coded Allergies: No Known Allergies (Unverified , 11/07/17) Patient History Past Medical History: see triage record, old chart reviewed Social History: Reports: smoking Social History Narrative at home with daughter Last Menstrual Period: na Now: No Reviewed Nursing Documentation: PMH: Agreed; PSxH: Agreed Nursing Documentation-PMH Past Medical History: No History, Except For Hx Cardiac Problems: No Hx Hypertension: Yes Hx Asthma: Yes Hx Diabetes: Yes Hx Cancer: No Hx Gastrointestinal Problems: No History Of Psychiatric Problem: Yes Hx Seizures: Yes Review of Systems All Other Systems: negative except mentioned in HPI Physical Exam Vital Signs Date Time Temp Pulse Resp B/P (MAP) Pulse Ox O2 Delivery O2 Flow Rate FiO2 03/10/18 09:57 98.2 98 18 114/77 98 Room Air 98.2 Sp02 EP Interpretation: reviewed, normal General Appearance: well appearing, GCS 15, mild distress Head: normocephalic, atraumatic Eyes: bilateral eye normal inspection, bilateral eye PERRL ENT: moist mucus membranes Neck: supple Respiratory: lungs clear, normal breath sounds Cardiovascular #1: regular rate, rhythm Cardiovascular #2: 2+ radial (R) Gastrointestinal: normal inspection, normal bowel sounds, no mass, non- distended, no guarding, no rebound, tenderness - diffuse Genitourinary: no CVA tenderness Musculoskeletal: back normal, gait/station normal, normal range of motion Neurologic: alert, oriented x3, grossly normal Psychiatric: depressed affect Skin: normal inspection, warm/dry Medical Decision Making Diagnostic Impression: Primary Impression: Pancreatitis Qualified Codes: K85.90 - Acute pancreatitis without necrosis or infection, unspecified Additional Impressions: Hyperglycemia Persistent vomiting Bipolar 1 disorder ER Course Patient presents with abdominal pain of vomiting and diarrhea. Differential includes appendicitis, diverticulitis, gastroenteritis amongst others. In addition as the patient has diabetes she cannot diabetic ketoacidosis. Evaluation will be with the chest x-ray, EKG CT abdomen and pelvis with contrast and labs. The patient will be treated with IV hydration, Zofran, Pepcid and morphine. Labs with normal WBC. CMP with elevated glucose, slight elevated creat. Elevated lipase. CXR clear (inc cor). Still with pain and nausea. CT with cholelithiasis, increased lobes of liver, SC nodularity. Improved slightly with fluids and analgesia. Analgesia repeated. Discussed with Dr. Grove who accepts at [facility]. Laboratory Tests Test 03/10/18 10:13 03/10/18 11:43 White Blood Count 8.7 K/UL (4.8-10.8) Red Blood Count 3.45 M/UL (4.20-5.40) L Hemoglobin 11.6 G/DL (12.0-16.0) L Hematocrit 36.3 % (37.0-47.0) L Mean Corpuscular Volume 105 FL (80-99) H Mean Corpuscular Hemoglobin 33.6 PG (27.0-31.0) H Mean Corpuscular Hemoglobin Concent 31.9 G/DL (32.0-36.0) L Red Cell Distribution Width 16.1 % (11.6-14.8) H Platelet Count 194 K/UL (150-450) Mean Platelet Volume 8.2 FL (6.5-10.1) Neutrophils (%) (Auto) % (45.0-75.0) Lymphocytes (%) (Auto) % (20.0-45.0) Monocytes (%) (Auto) % (1.0-10.0) Eosinophils (%) (Auto) % (0.0-3.0) Basophils (%) (Auto) % (0.0-2.0) Differential Total Cells Counted 100 Neutrophils % (Manual) 61 % (45-75) Lymphocytes % (Manual) 27 % (20-45) Monocytes % (Manual) 12 % (1-10) H Eosinophils % (Manual) 0 % (0-3) Basophils % (Manual) 0 % (0-2) Band Neutrophils 0 % (0-8) Nucleated Red Blood Cells 2 /100 WBC Platelet Estimate Adequate Platelet Morphology Normal Polychromasia 1+ Hypochromasia 1+ Anisocytosis 2+ Macrocytosis 1+ Prothrombin Time 10.4 SEC (9.30-11.50) Prothrombin Time INR 1.0 (0.9-1.1) PTT 28 SEC (23-33) Sodium Level 137 MMOL/L (136-145) Potassium Level 3.4 MMOL/L (3.5-5.1) L Chloride Level 100 MMOL/L (98-107) Carbon Dioxide Level 23 MMOL/L (21-32) Anion Gap 14 mmol/L (5-15) Blood Urea Nitrogen 44 mg/dL (7-18) H Creatinine 1.2 MG/DL (0.55-1.30) Estimate Glomerular Filtration Rate 58.7 mL/min (>60) Glucose Level 203 MG/DL (74-106) H Calcium Level 10.4 MG/DL (8.5-10.1) H Total Bilirubin 0.9 MG/DL (0.2-1.0) Aspartate Amino Transferase (AST) 67 U/L (15-37) H Alanine Aminotransferase (ALT) 54 U/L (12-78) Alkaline Phosphatase 190 U/L (46-116) H Total Protein 9.1 G/DL (6.4-8.2) H Albumin 3.1 G/DL (3.4-5.0) L Globulin 6.0 g/dL Albumin/Globulin Ratio 0.5 (1.0-2.7) L Lipase 429 U/L (73-393) H Serum Alcohol < 3 mg/dL Urine Color Yellow Urine Appearance Clear Urine pH 6.5 (4.5-8.0) Urine Specific [place] 1.010 (1.005-1.035) Urine Protein 1+ (NEGATIVE) H Urine Glucose (UA) Negative (NEGATIVE) Urine Ketones 1+ (NEGATIVE) H Urine Blood Negative (NEGATIVE) Urine Nitrite Negative (NEGATIVE) Urine Bilirubin Negative (NEGATIVE) Urine Urobilinogen 4 MG/DL (0.0-1.0) H Urine Leukocyte Esterase 1+ (NEGATIVE) H Urine RBC 0-2 /HPF (0 - 2) Urine WBC 2-4 /HPF (0 - 2) Urine Squamous Epithelial Cells Few /LPF (NONE/OCC) Urine Bacteria Occasional /HPF (NONE) Urine HCG, Qualitative Negative (NEGATIVE) Urine Opiates Screen Positive (NEGATIVE) H Urine Barbiturates Screen Negative (NEGATIVE) Phencyclidine (PCP) Screen Negative (NEGATIVE) Urine Amphetamines Screen Negative (NEGATIVE) Urine Benzodiazepines Screen Negative (NEGATIVE) Urine Cocaine Screen Negative (NEGATIVE) Urine Marijuana (THC) Screen Negative (NEGATIVE) EKG Diagnostic Results Rate: normal Rhythm: NSR ST Segments: no acute changes Rhythm Strip Diag. Results EP Interpretation: yes Rhythm: NSR, no PVC's, no ectopy Chest X-Ray Diagnostic Results Chest X-Ray Diagnostic Results : Chest X-Ray Ordered: Yes # of Views/Limited/Complete: 1 View Indication: Other EP Interpretation: Yes Interpretation: no consolidation, no effusion, no pneumothorax, other - inc cor Impression: Other Electronically Signed by: Elmo Elliott MD CT/MRI/US Diagnostic Results CT/MRI/US Diagnostic Results : Imaging Test Ordered: abd pelvis Impression gall stones, lobular liver, SC nodularity Cholelithiasis. Lobular liver contour can be seen with cirrhosis. However, no other sequela of hepatic fibrosis/failure. Lower abdominal subcutaneous nodularity with associated rectus sheath thickening. Favor scarring from a prior procedure in this area. No abscess. Last Vital Signs Date Time Temp Pulse Resp B/P (MAP) Pulse Ox O2 Delivery O2 Flow Rate FiO2 03/10/18 14:12 98.20662 89 18 114/79 97 Room Air 209.5 Status: improved Disposition: XFER SHT-TRM HOSP Condition: Serious Elmo Elliott M.D. Mar 10, 2018 10:24
[2018-03-10] MEDS ORDERED: Isovue-300 100ml vial INJ PRN (10:30)
[2018-03-10] MEDS ORDERED: Morphine Sulfate 4mg/ml Inj (IV/IM USE ONLY) IVP ONE ×2 (10:30→14:15)
[2018-03-10 10:47] LABS: ANION GAP 14 mmol/L (5-15); BLOOD UREA NITROGEN 44 mg/dL (7-18); CALCIUM 10.4 MG/DL (8.5-10.1); CARBON DIOXIDE 23 MMOL/L (21-32); CHLORIDE 100 MMOL/L (98-107); CREATININE 1.2 MG/DL (0.55-1.30); POTASSIUM 3.4 MMOL/L (3.5-5.1); SODIUM 137 MMOL/L (136-145)
[2018-03-10 10:52] LABS: ALANINE AMINOTRANSFERASE 54 U/L (12-78); ALBUMIN 3.1 G/DL (3.4-5.0); ALBUMIN/GLOBULIN RATIO 0.5 (1.0-2.7); ALKALINE PHOSPHATASE 190 U/L (46-116); ASPARTATE AMINO TRANSFERASE 67 U/L (15-37); BILIRUBIN,TOTAL 0.9 MG/DL (0.2-1.0); HEMATOCRIT 36.3 % (37.0-47.0); HEMOGLOBIN 11.6 G/DL (12.0-16.0); MEAN CORPUSCULAR VOLUME 105 FL (80-99); PLATELET COUNT 194 K/UL (150-450); RED BLOOD COUNT 3.45 M/UL (4.20-5.40); RED CELL DISTRIBUTION WIDTH 16.1 % (11.6-14.8); WHITE BLOOD COUNT 8.7 K/UL (4.8-10.8)
[2018-03-10 10:53] VITALS: BP 121/79
[2018-03-10 11:49] LABS: APPEARANCE,URINE CLEAR; BILIRUBIN, URINE NEGATIVE (NEGATIVE); GLUCOSE, URINE (UA) NEGATIVE (NEGATIVE); KETONES,URINE 1+ (NEGATIVE); LEUKOCYTE ESTERASE ,URINE 1+ (NEGATIVE); NITRITE,URINE NEGATIVE (NEGATIVE); PH,URINE 6.5 (4.5-8.0); PROTEIN,URINE 1+ (NEGATIVE); UROBILINOGEN,URINE 4 MG/DL (0.0-1.0)
[2018-03-10 11:58] LABS: COLOR,URINE YELLOW
--- NOTE | 2018-03-10 12:40 | Diagnostic Imaging Report ---
EXAM: XR Chest, 1 View CLINICAL HISTORY: ABD PAIN TECHNIQUE: Frontal view of the chest. COMPARISON: 11/08/17. FINDINGS: Lungs: Unremarkable. No consolidation. Pleural space: Unremarkable. No pneumothorax. Heart: Enlarged cardiac silhouette. This. Mediastinum: Unremarkable. Bones/joints: Chronic posterior left rib deformities. IMPRESSION: Enlarged cardiac silhouette. Question mild vascular congestion.
[2018-03-10 12:57] VITALS: BP 103/76
--- NOTE | 2018-03-10 14:00 | Diagnostic Imaging Report ---
EXAM: CT Abdomen and Pelvis With Intravenous Contrast CLINICAL HISTORY: ABD PAIN TECHNIQUE: Axial computed tomography images of the abdomen and pelvis with intravenous contrast. CTDI is 18.16 mGy and DLP is 945 mGy-cm One or more of the following dose reduction techniques were used: automated exposure control, adjustment of the mA and/or kV according to patient size, use of iterative reconstruction technique. COMPARISON: No relevant prior studies available. FINDINGS: Lung bases: Minimal dependent atelectasis. ABDOMEN: Liver: Lobular contour. Right lobe hypodensity, which is too small characterize, but most likely a cyst. Gallbladder and bile ducts: Cholelithiasis. Pancreas: Unremarkable. No mass. No ductal dilation. Spleen: Unremarkable. No splenomegaly. Adrenals: Unremarkable. No mass. Kidneys and ureters: Unremarkable. No solid mass. No hydronephrosis. Stomach and bowel: Unremarkable. No obstruction. No mucosal thickening. PELVIS: Appendix: Not identified. Bladder: Unremarkable. No mass. Reproductive: Unremarkable as visualized. ABDOMEN and PELVIS: Intraperitoneal space: Unremarkable. No free air. No significant fluid collection. Bones/joints: No acute fracture. Chronic fracture deformities of posterior left ribs Soft tissues: Subcutaneous nodularity in the lower leftward anterior abdominal wall with associated rectus sheath thickening. Favor scarring from a prior procedure in this area. No abscess. Vasculature: Unremarkable. No abdominal aortic aneurysm. Lymph nodes: Unremarkable. No enlarged lymph nodes. IMPRESSION: Cholelithiasis. Lobular liver contour can be seen with cirrhosis. However, no other sequela of hepatic fibrosis/failure. Lower abdominal subcutaneous nodularity with associated rectus sheath thickening. Favor scarring from a prior procedure in this area. No abscess.
[2018-03-10 14:12] VITALS: BP 114/79
--- NOTE | 2018-03-12 07:59 | Cardiology Report ---
APPROVED REPORT EKG Measurement Heart [id number] Normal sinus rhythm T wave abnormality, consider lateral ischemia Abnormal ECG
== END 2018-03-10 14:12 | disposition short-term general hospital (02) ==
LOC: EDBD 10:07 → EMR 10:42
DX: K85.90 Acute pancreatitis without necrosis or infection, unspecified (principal); E11.65 Type 2 diabetes mellitus with hyperglycemia; F31.9 Bipolar disorder, unspecified; I10 Essential (primary) hypertension; J45.909 Unspecified asthma, uncomplicated; F17.200 Nicotine dependence, unspecified, uncomplicated; F41.9 Anxiety disorder, unspecified; R11.2 Nausea with vomiting, unspecified
CPT/HCPCS: 36415; 71045; 74177; 80053; 80307; 80329; 81003; 81025; 83690; 85007; 85025; 85610; 85730; 93005; 96361; 96374; 96375; 96376; 99285; J2270; J2405; Q9967; S0028

== ENCOUNTER 2018-12-24 14:35 | Inpatient (IN) | payer OTHER ==
[~2018-12-24] VITALS: Ht 170.2 cm; Wt 78.5 kg
[~2018-12-24 14:35] MED LIST changes: +LANTUS SOL100 UNIT/1 SUBQ
--- NOTE | 2018-12-24 14:43 | NUR ---
ED Nurse Note: Patient brought herself to ER from home due to nausea/ vomiting and diarrhea x 1 week with watery stool. Patient c/o 3/10 abdominal pain. Has history of HTN, DM, CHF, pancreatitis and seizure. Alert and oriented x4, verbally responsive. No SOB. Breathing even and unlabored. No sign os any distress noted. Will continue to monitor.
[2018-12-24 15:35] VITALS: BP 128/97
[2018-12-24 15:51] LABS: BASOPHILS % (AUTO) 1.4 % (0.0-2.0); EOSINOPHILS % (AUTO) 1.2 % (0.0-3.0); HEMATOCRIT 39.4 % (37.0-47.0); HEMOGLOBIN 12.7 G/DL (12.0-16.0); LYMPHOCYTES % (AUTO) 31.3 % (20.0-45.0); MEAN CORPUSCULAR VOLUME 110 FL (80-99); MONOCYTES % (AUTO) 6.1 % (1.0-10.0); NEUTROPHILS % (AUTO) 60.1 % (45.0-75.0); PLATELET COUNT 184 K/UL (150-450); RED BLOOD COUNT 3.59 M/UL (4.20-5.40); RED CELL DISTRIBUTION WIDTH 18.1 % (11.6-14.8); WHITE BLOOD COUNT 6.7 K/UL (4.8-10.8)
[2018-12-24 16:03] LABS: ANION GAP 13 mmol/L (5-15); BLOOD UREA NITROGEN 19 mg/dL (7-18); CALCIUM 8.9 MG/DL (8.5-10.1); CARBON DIOXIDE 27 MMOL/L (21-32); CHLORIDE 103 MMOL/L (98-107); POTASSIUM 3.7 MMOL/L (3.5-5.1); SODIUM 143 MMOL/L (136-145)
[2018-12-24 16:09] LABS: ALANINE AMINOTRANSFERASE 130 U/L (12-78); ALBUMIN 4.1 G/DL (3.4-5.0); ALBUMIN/GLOBULIN RATIO 1.1 (1.0-2.7); ALKALINE PHOSPHATASE 176 U/L (46-116); ASPARTATE AMINO TRANSFERASE 294 U/L (15-37); BILIRUBIN,TOTAL 0.8 MG/DL (0.2-1.0)
[2018-12-24] MEDS ORDERED: Sodium Chloride 2,200 ML IVLG ONE (16:30)
--- NOTE | 2018-12-24 17:07 | Emergency Room Report ---
History of Present Illness General Chief Complaint: Nausea, Vomiting, and Diarrhea Source: Patient Present Illness HPI 48-year-old female presents ED for evaluation. Patient complaining of abdominal pain with vomiting and diarrhea. Started 2 weeks ago. States that she was seen by her PMD and was told that she has C. difficile. Was started on vancomycin. States she is been taking the medication for 2 weeks now but states there is no improvement. Feels weak and dehydrated. Was told by her PMD to go to the ER. Denies fevers or chills. Denies cramping, 7 out of 10, nonradiating. Denies recent travel or recent antibiotic use. No other aggravating relieving factors. Denies any other associated symptoms Allergies: Coded Allergies: No Known Allergies (Unverified , 11/07/17) Patient History Past Medical History: HTN, CHF, asthma, seizures, other - pancreatiits Past Surgical History: none Pertinent Family History: none Social History: Denies: smoking, alcohol use, drug use Now: No Immunizations: UTD Reviewed Nursing Documentation: PMH: Agreed; PSxH: Agreed Nursing Documentation-PMH Past Medical History: No History, Except For Hx Cardiac Problems: Yes - Hypertension, CHF Hx Hypertension: Yes Hx Asthma: Yes Hx Diabetes: Yes Hx Cancer: No Hx Gastrointestinal Problems: Yes - Pancreatitis Hx Neurological Problems: Yes - seizures Hx Seizures: Yes Review of Systems All Other Systems: negative except mentioned in HPI Physical Exam Vital Signs Date Time Temp Pulse Resp B/P (MAP) Pulse Ox O2 Delivery O2 Flow Rate FiO2 12/24/18 14:43 98.6 78 15 128/94 (105) 96 Room Air Sp02 EP Interpretation: reviewed, normal General Appearance: no apparent distress, alert, GCS 15, non-toxic Head: normocephalic, atraumatic Eyes: bilateral eye normal inspection, bilateral eye PERRL ENT: hearing grossly normal, normal pharynx, no angioedema, normal voice Neck: full range of motion, supple/symm/no masses Respiratory: chest non-tender, lungs clear, normal breath sounds, speaking full sentences Cardiovascular #1: regular rate, rhythm, no edema Cardiovascular #2: 2+ carotid (R), 2+ carotid (L), 2+ radial (R), 2+ radial (L) , 2+ dorsalis pedis (R), 2+ dorsalis pedis (L) Gastrointestinal: normal bowel sounds, non tender, soft, non-distended, no guarding, no rebound Rectal: deferred Genitourinary: normal inspection, no CVA tenderness Musculoskeletal: back normal, gait/station normal, normal range of motion, non- tender Neurologic: alert, oriented x3, responsive, motor strength/tone normal, sensory intact, speech normal Psychiatric: judgement/insight normal, memory normal, mood/affect normal, no suicidal/homicidal ideation Reflexes: 3+ bicep (R), 3+ bicep (L), 3+ tricep (R), 3+ tricep (L), 3+ knee (R) , 3+ knee (L) Lymphatic: no adenopathy Medical Decision Making Diagnostic Impression: Primary Impression: Colitis Additional Impression: Elevated LFTs ER Course Hospital Course 48-year-old male presents ED with abdominal pain, vomiting and diarrhea Differential - gastritis, gastroenteritis, dehydration Clinical course Initial history and physical I ordered labs, IV fluids, medications Labs - no leukocytosis, Hb/Hct stable. electrolytes ok. LFTs elevated She feels weak. Is currently taking vancomycin for presumed Cdiff colitis continues to have diarrhea. Given Cipro and Flagyl here in ED. Will require admission Case discussed with Dr. Mejia and he agreed to accept the patient to his service for further care and support I feel this is a highly complex case requiring extensive working including EKG/ Rhythm strip, Xray/CT/US, Blood/urine lab work, repeat exams while in ED, and administration of strong opiates/narcotics for pain control, admission to hospital or close patient follow up. Diagnosis - colitis, elevated LFTs Patient admitted to hospital in serious condition Labs Test 12/24/18 15:26 White Blood Count 6.7 K/UL (4.8-10.8) Red Blood Count 3.59 M/UL (4.20-5.40) Hemoglobin 12.7 G/DL (12.0-16.0) Hematocrit 39.4 % (37.0-47.0) Mean Corpuscular Volume 110 FL (80-99) Mean Corpuscular Hemoglobin 35.4 PG (27.0-31.0) Mean Corpuscular Hemoglobin Concent 32.2 G/DL (32.0-36.0) Red Cell Distribution Width 18.1 % (11.6-14.8) Platelet Count 184 K/UL (150-450) Mean Platelet Volume 6.5 FL (6.5-10.1) Neutrophils (%) (Auto) 60.1 % (45.0-75.0) Lymphocytes (%) (Auto) 31.3 % (20.0-45.0) Monocytes (%) (Auto) 6.1 % (1.0-10.0) Eosinophils (%) (Auto) 1.2 % (0.0-3.0) Basophils (%) (Auto) 1.4 % (0.0-2.0) Sodium Level 143 MMOL/L (136-145) Potassium Level 3.7 MMOL/L (3.5-5.1) Chloride Level 103 MMOL/L (98-107) Carbon Dioxide Level 27 MMOL/L (21-32) Anion Gap 13 mmol/L (5-15) Blood Urea Nitrogen 19 mg/dL (7-18) Creatinine 1.0 MG/DL (0.55-1.30) Estimat Glomerular Filtration Rate > 60 mL/min (>60) Glucose Level 139 MG/DL (74-106) Lactic Acid Level 3.70 mmol/L (0.4-2.0) Calcium Level 8.9 MG/DL (8.5-10.1) Total Bilirubin 0.8 MG/DL (0.2-1.0) Aspartate Amino Transf (AST/SGOT) 294 U/L (15-37) Alanine Aminotransferase (ALT/SGPT) 130 U/L (12-78) Alkaline Phosphatase 176 U/L (46-116) Total Protein 8.0 G/DL (6.4-8.2) Albumin 4.1 G/DL (3.4-5.0) Globulin 3.9 g/dL Albumin/Globulin Ratio 1.1 (1.0-2.7) Lipase 220 U/L (73-393) Last Vital Signs Date Time Temp Pulse Resp B/P (MAP) Pulse Ox O2 Delivery O2 Flow Rate FiO2 12/24/18 15:35 98.1 87 14 128/97 Room Air 12/24/18 14:43 96 Status: improved Disposition: ADMITTED INPATIENT Condition: Serious Referrals: NOT CHOSEN IPA/,REFERRING (PCP) Lior Bullard MD Dec 24, 2018 17:07
--- NOTE | 2018-12-24 17:25 | NUR ---
ED Nurse Note: Patient voided x 1. Urine sample collected and sent. No diarrhea noted.
--- NOTE | 2018-12-24 17:35 | NUR ---
ED Nurse Note: ERMD changed order for NS to 2L due to history of CHF, noted and carried out.
[2018-12-24 17:54] LABS: APPEARANCE,URINE CLEAR; BILIRUBIN, URINE NEGATIVE (NEGATIVE); COLOR,URINE PALE YELLOW; GLUCOSE, URINE (UA) NEGATIVE (NEGATIVE); KETONES,URINE NEGATIVE (NEGATIVE); LEUKOCYTE ESTERASE ,URINE 3+ (NEGATIVE); NITRITE,URINE NEGATIVE (NEGATIVE); PH,URINE 7 (4.5-8.0); PROTEIN,URINE NEGATIVE (NEGATIVE); UROBILINOGEN,URINE NORMAL MG/DL (0.0-1.0)
--- NOTE | 2018-12-24 19:03 | NUR ---
ED Nurse Note: Collected patient's medication and placed in patient's own med locker- #[id number]
[2018-12-24 19:09] VITALS: BP 136/88
--- NOTE | 2018-12-24 19:14 | NUR ---
ED Nurse Note: Report adi to ANGELA Delgado. Patient walking to the restroom. No facial grimacing or guarding noted.
[2018-12-24 20:45] VITALS: BP 136/88
--- NOTE | 2018-12-24 20:45 | NUR ---
NURSE NOTES: Received patient from ED. Patient anxious, alert and oriented x 3, on room air, no s/s of respiratory distress. Reports having frequent diarrhea, nausea and vomiting with yellow emesis. IV on the right forearm, 20 gauge, intact and patent. No skin breakdown. Patient is ambulatory with a cane. Bed in low position, locked, call light within reach.
[2018-12-24 21:00] VITALS: BP 164/104
[2018-12-24] MEDS: LORazepam 0.5mg tab ORAL SCH (21:41)
--- NOTE | 2018-12-24 21:45 | NUR ---
ED Nurse Note: Patient was admited to Tele due to severe diarrhea, N/V. Patient was transfered to the unit via gurney by ACLS protocol, with all belongings. AAO x4, VSS at this time, skn is dry warm to touch.
--- NOTE | 2018-12-24 21:45 | NUR ---
NURSE NOTES: Received admission orders from Dr. Man. Per Dr. Man, only continue medications needed for tonight and to have primary MD review the rest of the meds.
[2018-12-24] MEDS: Carvedilol 12.5mg tab ORAL SCH (22:28)
[2018-12-24] MEDS: traMADol 50mg tab ORAL PRN (22:29)
[2018-12-24] MEDS ORDERED: HydrALAZINE 25mg tab ORAL PRN (22:45)
[2018-12-24] MEDS: TraZODone 100mg tab ORAL SCH (23:00)
[2018-12-25] VITALS (7 sets, daily range): BP systolic 118–165; BP diastolic 72–101
[2018-12-25] MEDS ORDERED: levETIRAcetam 500mg/NS100ml 100 ML IVPB SCH (00:45)
--- NOTE | 2018-12-25 00:45 | NUR ---
NURSE NOTES: Notified Dr. Man that patient is hypertensive, does not want to take oral medications due to n/v and that she is also a diabetic and also endorsing that she has seizure disorder and is on keppra. Received orders for accucheck with moderate sliding scale, hydralazine 10mg IVP PRN for elevated bp, and keppra 500mg iv q12 hrs to start in AM.
[2018-12-25] MEDS: Vancomycin oral 125mg/2.5ml ORAL SCH ×2 (00:51→05:05)
[2018-12-25] MEDS: traMADol 50mg tab ORAL PRN ×2 (05:05→16:32)
[2018-12-25] MEDS: NovoLOG Insulin Flexpen SUBQ SCH ×5 (05:54→20:48)
[2018-12-25 06:45] LABS: HEMATOCRIT 38.7 % (37.0-47.0); HEMOGLOBIN 12.3 G/DL (12.0-16.0); MEAN CORPUSCULAR VOLUME 113 FL (80-99); PLATELET COUNT 189 K/UL (150-450); RED BLOOD COUNT 3.44 M/UL (4.20-5.40); RED CELL DISTRIBUTION WIDTH 16.2 % (11.6-14.8); WHITE BLOOD COUNT 8.2 K/UL (4.8-10.8)
[2018-12-25 07:17] LABS: ANION GAP 11 mmol/L (5-15); BLOOD UREA NITROGEN 11 mg/dL (7-18); CALCIUM 8.4 MG/DL (8.5-10.1); CARBON DIOXIDE 27 MMOL/L (21-32); CHLORIDE 106 MMOL/L (98-107); CREATININE 1.1 MG/DL (0.55-1.30); POTASSIUM 3.9 MMOL/L (3.5-5.1); SODIUM 144 MMOL/L (136-145)
--- NOTE | 2018-12-25 07:23 | NUR ---
NURSE NOTES: Received report from ANGELA Houser. The patient is resting on the bed without acute distress or shortness of breath. The patient's bed in the lowest position, call light in reach, and fall, aspiration, and seizure precaution reinforced. IV site is intact and patent. Will continue plan of care.
[2018-12-25] MEDS: LORazepam 0.5mg tab ORAL SCH ×3 (08:09→17:37)
--- NOTE | 2018-12-25 08:36 | NUR ---
NURSE NOTES: Notified Dr. Maldonado and charge nurse regarding elevated lactic acid level. Will wait the call back from Dr. Maldonado. Will continue plan of care.
[2018-12-25] MEDS: levETIRAcetam 500mg/NS100ml 100 ML IVPB SCH ×2 (09:22→20:23)
[2018-12-25] MEDS: Carvedilol 12.5mg tab ORAL SCH ×2 (09:22→20:20)
[2018-12-25] MEDS: Heparin 5000 units/ml inj SUBQ SCH ×2 (09:23→20:47)
[2018-12-25 09:59] LABS: INR 1.1 (0.9-1.1)
--- NOTE | 2018-12-25 10:28 | GI Initial Consult Note ---
History of Present Illness General Date patient seen: Dec 25, 2018 Time patient seen: 10:17 Reason for Hospitalization: Nausea, Vomiting, and Diarrhea Referring physician: MICAELA ORELLANA Reason for Consultation: DIARRHEA Present Illness HPI 48-year-old female presents ED for evaluation. Patient complaining of abdominal pain with vomiting and diarrhea. Started 2 weeks ago. States that she was seen by her PMD and was told that she has C. difficile. Was started on vancomycin. States she is been taking the medication for 2 weeks now but states there is no improvement. Feels weak and dehydrated. Was told by her PMD to go to the ER. Denies fevers or chills. Denies cramping, 7 out of 10, nonradiating. Denies recent travel or recent antibiotic use. No other aggravating relieving factors. Denies any other associated symptoms GI consulted for reported persistent diarrhea. Patient seen, awake alert and oriented x4 no apparent distress has current complaint of nausea without vomiting. Patient reported persistent diarrhea after her discharge date here at [facility] approximately 2 weeks ago. The patient denied any melena or hematochezia. Patient was given antibiotics for C. difficile by her primary physician with no improvement. Patient reports no bowel movement today and that her diarrhea has improved. Patient is a tobacco, EtOH user, denies any drug use. Patient is refusing any endoscopic or colonoscopy at this time. Abdominal pelvis CT from previous admission shows hepatomegaly. Labs reviewed; no leukocytosis, no anemia, AST of 291, ALT of 130, alkaline phosphatase of 176 , C. difficile negative. Home Meds Active Scripts Bacitracin (Bacitracin) 28.4 Gm Oint...g., 1 APPLIC TOPIC THREE TIMES A DAY for 7 Days, GM Prov:Kosta Oliva M.D. 02/13/18 Atorvastatin (Lipitor) 80 Mg Tablet, 80 MG ORAL BEDTIME for 30 Days, #30 TAB 0 Refills Prov:Cyn Oquendo M.D. 11/10/17 Furosemide* (LASIX*) 40 Mg Tablet, 40 MG ORAL DAILY for 30 Days, #30 TAB 0 Refills Prov:Cyn Oquendo M.D. 11/10/17 Amlodipine Besylate (Norvasc) 5 Mg Tablet, 5 MG ORAL DAILY for 30 Days, #30 TAB 1 Refill Prov:WijegunaraCyn benson M.D. 11/10/17 Carvedilol (Coreg) 12.5 Mg Tablet, 12.5 MG ORAL EVERY 12 HOURS for 30 Days, #90 TAB 1 Refill Prov:AzraCyn M.D. 11/10/17 Reported Medications Insulin Glargine (LANTUS) 100 Unit/1 Ml Insuln.pen, 60 UNITS SUBQ BEDTIME, #1 EA 0 Refills 11/28/18 Gabapentin* (GABAPENTIN*) 300 Mg Capsule, 300 MG ORAL THREE TIMES A DAY, CAP 0 Refills 11/07/17 Tramadol Hcl* (ULTRAM*) 50 Mg Tablet, 50 MG ORAL BID PRN for For Pain, #30 TAB 0 Refills 11/07/17 Trazodone Hcl* (DESYREL*) 100 Mg Tablet, 100 MG ORAL BEDTIME, TAB 11/07/17 Paroxetine Hcl* (PAXIL*) 20 Mg Tablet, 20 MG PO DAILY, TAB 11/07/17 Ondansetron* (ZOFRAN*) 4 Mg Tablet, 4 MG ORAL Q6H PRN for Nausea & Vomiting, TAB 11/07/17 Omeprazole (OMEPRAZOLE) 40 Mg Capsule.dr, 40 MG ORAL DAILY, CAP 11/07/17 Naltrexone Microspheres (VIVITROL) 380 Mg Ayana.er.rec, 380 MG IM 11/07/17 Lorazepam* (LORAZEPAM*) 0.5 Mg Tablet, 0.5 MG ORAL TID, TAB 11/07/17 Levothyroxine Sodium* (LEVOTHYROXINE SODIUM) 200 Mcg Vial, 50 MCG PO DAILY, VIAL 11/07/17 Allopurinol* (ALLOPURINOL*) 300 Mg Tablet, 300 MG ORAL DAILY, TAB 11/07/17 Med list reviewed/reconciled: Yes Allergies: Coded Allergies: No Known Allergies (Unverified , 11/07/17) Patient History History Provided By: Patient, Medical Record PM Narrative Past Medical History: HTN, CHF, asthma, seizures, other - pancreatiits Past Surgical History: none Pertinent Family History: none Social History: Denies: smoking, alcohol use, drug use Now: No Immunizations: UTD Reviewed Nursing Documentation: PMH: Agreed; PSxH: Agreed Nursing Documentation-PM Past Medical History: No History, Except For Hx Cardiac Problems: Yes - Hypertension, CHF Hx Hypertension: Yes Hx Asthma: Yes Hx Diabetes: Yes Hx Cancer: No Hx Gastrointestinal Problems: Yes - Pancreatitis Hx Neurological Problems: Yes - seizures Hx Seizures: Yes Social History: Reports: smoking, alcohol use Review of Systems All Other Systems: negative except mentioned in HPI Physical Exam Vital Signs Date Time Temp Pulse Resp B/P (MAP) Pulse Ox O2 Delivery O2 Flow Rate FiO2 12/24/18 14:43 98.6 78 15 128/94 (105) 96 Room Air Sp02 EP Interpretation: reviewed, normal Labs Laboratory Tests Test 12/24/18 15:26 12/24/18 17:10 12/24/18 17:53 12/25/18 06:00 White Blood Count 6.7 K/UL (4.8-10.8) 8.2 K/UL (4.8-10.8) Red Blood Count 3.59 M/UL (4.20-5.40) L 3.44 M/UL (4.20-5.40) L Hemoglobin 12.7 G/DL (12.0-16.0) 12.3 G/DL (12.0-16.0) Hematocrit 39.4 % (37.0-47.0) 38.7 % (37.0-47.0) Mean Corpuscular Volume 110 FL (80-99) H 113 FL (80-99) H Mean Corpuscular Hemoglobin 35.4 PG (27.0-31.0) H 35.7 PG (27.0-31.0) H Mean Corpuscular Hemoglobin Concent 32.2 G/DL (32.0-36.0) 31.7 G/DL (32.0-36.0) L Red Cell Distribution Width 18.1 % (11.6-14.8) H 16.2 % (11.6-14.8) H Platelet Count 184 K/UL (150-450) 189 K/UL (150-450) Mean Platelet Volume 6.5 FL (6.5-10.1) 7.2 FL (6.5-10.1) Neutrophils (%) (Auto) 60.1 % (45.0-75.0) % (45.0-75.0) Lymphocytes (%) (Auto) 31.3 % (20.0-45.0) % (20.0-45.0) Monocytes (%) (Auto) 6.1 % (1.0-10.0) % (1.0-10.0) Eosinophils (%) (Auto) 1.2 % (0.0-3.0) % (0.0-3.0) Basophils (%) (Auto) 1.4 % (0.0-2.0) % (0.0-2.0) Sodium Level 143 MMOL/L (136-145) 144 MMOL/L (136-145) Potassium Level 3.7 MMOL/L (3.5-5.1) 3.9 MMOL/L (3.5-5.1) Chloride Level 103 MMOL/L (98-107) 106 MMOL/L (98-107) Carbon Dioxide Level 27 MMOL/L (21-32) 27 MMOL/L (21-32) Anion Gap 13 mmol/L (5-15) 11 mmol/L (5-15) Blood Urea Nitrogen 19 mg/dL (7-18) H 11 mg/dL (7-18) Creatinine 1.0 MG/DL (0.55-1.30) 1.1 MG/DL (0.55-1.30) Estimat Glomerular Filtration Rate > 60 mL/min (>60) > 60 mL/min (>60) Glucose Level 139 MG/DL (74-106) H 177 MG/DL (74-106) H Lactic Acid Level 3.70 mmol/L (0.4-2.0) H 3.40 mmol/L (0.66-2.22) H Calcium Level 8.9 MG/DL (8.5-10.1) 8.4 MG/DL (8.5-10.1) L Total Bilirubin 0.8 MG/DL (0.2-1.0) Aspartate Amino Transf (AST/SGOT) 294 U/L (15-37) H Alanine Aminotransferase (ALT/SGPT) 130 U/L (12-78) H Alkaline Phosphatase 176 U/L (46-116) H Total Protein 8.0 G/DL (6.4-8.2) Albumin 4.1 G/DL (3.4-5.0) Globulin 3.9 g/dL Albumin/Globulin Ratio 1.1 (1.0-2.7) Lipase 220 U/L (73-393) Urine Color Pale yellow Urine Appearance Clear Urine pH 7 (4.5-8.0) Urine Specific [place] 1.005 (1.005-1.035) Urine Protein Negative (NEGATIVE) Urine Glucose (UA) Negative (NEGATIVE) Urine Ketones Negative (NEGATIVE) Urine Blood 1+ (NEGATIVE) H Urine Nitrite Negative (NEGATIVE) Urine Bilirubin Negative (NEGATIVE) Urine Urobilinogen Normal MG/DL (0.0-1.0) Urine Leukocyte Esterase 3+ (NEGATIVE) H Urine RBC 2-4 /HPF (0 - 2) H Urine WBC 5-10 /HPF (0 - 2) H Urine Squamous Epithelial Cells Few /LPF (NONE/OCC) Urine Bacteria Few /HPF (NONE) Differential Total Cells Counted 100 Neutrophils % (Manual) 60 % (45-75) Lymphocytes % (Manual) 32 % (20-45) Monocytes % (Manual) 7 % (1-10) Eosinophils % (Manual) 1 % (0-3) Basophils % (Manual) 0 % (0-2) Band Neutrophils 0 % (0-8) Platelet Estimate Adequate Platelet Morphology Normal Hypochromasia 1+ Anisocytosis 1+ Macrocytosis 2+ Test 12/25/18 09:35 Prothrombin Time 11.4 SEC (9.30-11.50) Prothromb Time International Ratio 1.1 (0.9-1.1) Hepatitis A IgM Antibody Pending Hepatitis B Surface Antigen Pending Hepatitis B Core IgM Antibody Pending Hepatitis C Antibody Pending General Appearance: well appearing, no apparent distress, alert Head: normocephalic EENT: PERRL/EOMI, normal ENT inspection Neck: supple Respiratory: normal breath sounds, no respiratory distress Cardiovascular: normal rate Gastrointestinal: normal inspection, non tender, soft, normal bowel sounds, non -distended Rectal: deferred Genitourinary: no CVA tenderness Musculoskeletal: normal inspection, back normal Neurologic: normal inspection, alert, oriented x3, responsive Psychiatric: normal inspection, judgement/insight normal, memory normal Skin: normal inspection, normal color, no rash, warm/dry, palpation normal, well hydrated Lymphatic: normal inspection, no adenopathy Current Medications Current Medications Medications (Trade) Dose Ordered Sig/Tadeo Route PRN Reason Start Time Stop Time Status Last Admin Dose Admin Carvedilol (Coreg) 12.5 mg EVERY 12 HOURS ORAL 12/24/18 21:45 01/23/19 21:44 12/25/18 09:22 Ceftriaxone Sodium 2 gm/ Dextrose 55 ml @ 110 mls/hr DAILY IVPB 12/25/18 10:00 01/01/19 09:59 Dextrose (Dextrose 50%) 25 ml Q30M PRN IV Hypoglycemia 12/25/18 00:30 01/24/19 00:29 Dextrose (Dextrose 50%) 50 ml Q30M PRN IV Hypoglycemia 12/25/18 00:30 01/24/19 00:29 Heparin Sodium (Porcine) (Heparin 5000 units/ml) 5,000 units EVERY 12 HOURS SUBQ 12/25/18 09:00 01/24/19 08:59 12/25/18 09:23 Hydralazine HCl (Apresoline) 10 mg Q6H PRN IV SBP >160 12/25/18 00:30 01/24/19 00:29 12/25/18 00:54 Hydralazine HCl (Apresoline) 25 mg Q6H PRN ORAL SBP >160 12/24/18 22:45 01/23/19 22:44 Insulin Aspart (NovoLOG) BEFORE MEALS AND HS SUBQ 12/25/18 06:30 01/24/19 06:29 12/25/18 05:54 Levetiracetam 100 ml @ 400 mls/hr Q12HR IVPB 12/25/18 09:00 01/24/19 00:44 12/25/18 09:22 Lorazepam (Ativan) 0.5 mg THREE TIMES A DAY ORAL 12/24/18 21:41 12/31/18 21:40 12/25/18 08:09 Metronidazole 100 ml @ 100 mls/hr Q8HR IVPB 12/25/18 09:00 01/01/19 08:59 12/25/18 09:57 Ondansetron HCl (Zofran) 4 mg Q4H PRN IVP Nausea & Vomiting 12/24/18 21:45 01/23/19 21:44 12/25/18 03:24 Sodium Chloride 1,000 ml @ 50 mls/hr Q20H IV 12/25/18 09:15 01/24/19 09:14 12/25/18 09:57 Tramadol HCl (Ultram) 50 mg Q6H PRN ORAL moderate pain 12/24/18 21:45 12/31/18 21:44 12/25/18 05:05 Trazodone HCl (Desyrel) 100 mg BEDTIME ORAL 12/24/18 23:00 01/23/19 22:59 GI: Plan Problems: (1) Dehydration (2) C. difficile diarrhea (3) Alcoholism (4) Anemia (5) Elevated LFTs (6) Tobacco abuse Plan C. difficile is negative, patient reports diarrhea has improved Given AST to ALT ratio, elevated LFTs secondary to EtOH use No plans for GI procedures at this time, patient refused. Advance diet as tolerated IV and p.o. hydration Electrolyte correction Zofran as needed, Reglan for persistent nausea and vomiting Diabetes mellitus management PPI Trend LFTs Discussed with Dr. Lanier. Thank you for this patient referral, we will follow. The patient was seen and examined at bedside and all new and available data was reviewed in the patients chart. I agree with the above findings, impression and plan. (Patient seen earlier today. Signature stamp does not reflect patient encounter time.). - MD Patito Rodriguez,[employer] TECHNICIAN Dec 25, 2018 10:28
[2018-12-25] MEDS: cefTRIAXone 2 GM in D5W 55 ML IVPB SCH (10:54)
--- NOTE | 2018-12-25 12:04 | Consultation ---
History of Present Illness General Date patient seen: Dec 25, 2018 Reason for Hospitalization: Nausea, Vomiting, and Diarrhea Present Illness HPI 48-year-old female presents to [facility] ED for evaluation of abdominal pain with vomiting and diarrhea. Started 2 weeks ago. States that she was seen by her PMD and was told that she has C. difficile. Was started on vancomycin. States she is been taking the medication for 2 weeks now but states there is no improvement. Feels weak and dehydrated. Was told by her PMD to go to the ER. Denies fevers or chills. Denies cramping, 7 out of 10, nonradiating. Denies recent travel or recent antibiotic use. No other aggravating relieving factors. Denies any other associated symptoms. surgery called to evaluate for abdominal pain. patient seen, chart reviewed, patient examined. Allergies: Coded Allergies: No Known Allergies (Unverified , 11/07/17) Medication History Scheduled Allopurinol* (Allopurinol*), 300 MG ORAL DAILY, (Reported) Amlodipine Besylate (Norvasc), 5 MG ORAL DAILY Atorvastatin (Lipitor), 80 MG ORAL BEDTIME Bacitracin (Bacitracin), 1 APPLIC TOPIC THREE TIMES A DAY Carvedilol (Coreg), 12.5 MG ORAL EVERY 12 HOURS Furosemide* (Lasix*), 40 MG ORAL DAILY Gabapentin* (Gabapentin*), 300 MG ORAL THREE TIMES A DAY, (Reported) Insulin Glargine (Lantus), 60 UNITS SUBQ BEDTIME, (Reported) Levothyroxine Sodium* (Levothyroxine Sodium), 50 MCG PO DAILY, (Reported) Lorazepam* (Lorazepam*), 0.5 MG ORAL TID, (Reported) Omeprazole (Omeprazole), 40 MG ORAL DAILY, (Reported) Paroxetine Hcl* (Paxil*), 20 MG PO DAILY, (Reported) Trazodone Hcl* (Desyrel*), 100 MG ORAL BEDTIME, (Reported) Scheduled PRN Ondansetron* (Zofran*), 4 MG ORAL Q6H PRN for Nausea & Vomiting, (Reported) Tramadol Hcl* (Ultram*), 50 MG ORAL BID PRN for For Pain, (Reported) Miscellaneous Medications Naltrexone Microspheres (Vivitrol), 380 MG IM, (Reported) Patient History History Provided By: Patient, Medical Record, PMD Healthcare decision maker Resuscitation status Full Code Advanced Directive on File Past Medical/Surgical History Past Medical/Surgical History: (1) Hypothyroidism (2) Seizure disorder (3) Uncontrolled diabetes mellitus (4) Diastolic CHF (5) Bipolar 1 disorder (6) Pancreatitis (7) Persistent vomiting (8) Gout (9) Hyperglycemia (10) Hyponatremia (11) ROSIE (acute kidney injury) (12) Hypertensive urgency (13) Elevated LFTs (14) Colitis (15) Dehydration (16) Alcoholism (17) Anemia (18) Tobacco abuse (19) C. difficile diarrhea Review of Systems Review of Symptoms General ROS: no weight loss or fever Psychological ROS: no depression or mood changes, no memory loss Ophthalmic ROS: no visual changes or eye irritation ENT ROS: no nasal congestion, hearing loss, dizziness Allergy and Immunology ROS: no allergic symptoms or urticaria Hematological and Lymphatic ROS: no swollen glands, unusual bleeding or bruising Endocrine ROS: no polyuria, polydipsia, weight changes, temperature intolerance Respiratory ROS: no cough, shortness of breath, or wheezing Cardiovascular ROS: no chest pain or dyspnea on exertion Gastrointestinal ROS: abdominal pain, no bright red blood in stool. Musculoskeletal ROS: no myalgias or arthralgias Neurological ROS: no TIA or stroke symptoms Dermatological ROS: no new or changing skin lesions, rashes or pruritis Physical Exam Physical Exam General appearance: alert, cooperative, no distress, appears stated age Head: Normocephalic, without obvious abnormality, atraumatic Eyes: conjunctivae/corneas clear. PERRL, EOM's intact. Fundi benign Throat: Lips, mucosa, and tongue normal. Teeth and gums normal Neck: supple, symmetrical, trachea midline, no adenopathy, thyroid: not enlarged, symmetric, no tenderness/mass/nodules, no carotid bruit and no JVD Lungs: clear to auscultation bilaterally Heart: regular rate and rhythm, S1, S2 normal, no murmur, click, rub or gallop Abdomen: soft, non-tender. Bowel sounds normal. No masses, no organomegaly Extremities: extremities normal, atraumatic, no cyanosis or edema Pulses: 2+ and symmetric Skin: Skin color, texture, turgor normal. No rashes or lesions Neurologic: Grossly normal Last 24 Hour Vital Signs Date Time Temp Pulse Resp B/P (MAP) Pulse Ox O2 Delivery O2 Flow Rate FiO2 8/7/19 09:22 76 137/76 12/25/18 08:00 71 12/25/18 08:00 98.1 76 18 137/76 (96) 98 12/25/18 03:57 98.5 86 140/87 (104) 12/25/18 03:24 88 12/25/18 02:07 87 140/81 (100) 12/25/18 00:54 165/101 12/25/18 00:45 98.3 127 18 165/101 (122) 98 12/24/18 23:26 71 12/24/18 22:28 102 164/104 12/24/18 21:13 98 12/24/18 21:00 97.4 102 20 164/104 (124) 95 12/24/18 21:00 Room Air 12/24/18 20:45 98.5 94 20 136/88 99 Room Air 12/24/18 20:45 98.5 94 20 136/88 99 Room Air 12/24/18 19:09 98.5 94 20 136/88 99 Room Air 12/24/18 15:35 98.1 87 14 128/97 Room Air 12/24/18 14:43 98.6 78 15 128/94 (105) 96 Room Air Intake and Output 12/24/18 12/25/18 19:00 07:00 Intake Total 1100 ml 0 ml Balance 1100 ml 0 ml Intake Oral 0 ml IV Total 1100 ml # Voids 3 # Bowel Movements 1 Laboratory Tests Test 12/24/18 15:26 12/24/18 17:10 12/24/18 17:53 12/25/18 06:00 White Blood Count 6.7 K/UL (4.8-10.8) 8.2 K/UL (4.8-10.8) Red Blood Count 3.59 M/UL (4.20-5.40) L 3.44 M/UL (4.20-5.40) L Hemoglobin 12.7 G/DL (12.0-16.0) 12.3 G/DL (12.0-16.0) Hematocrit 39.4 % (37.0-47.0) 38.7 % (37.0-47.0) Mean Corpuscular Volume 110 FL (80-99) H 113 FL (80-99) H Mean Corpuscular Hemoglobin 35.4 PG (27.0-31.0) H 35.7 PG (27.0-31.0) H Mean Corpuscular Hemoglobin Concent 32.2 G/DL (32.0-36.0) 31.7 G/DL (32.0-36.0) L Red Cell Distribution Width 18.1 % (11.6-14.8) H 16.2 % (11.6-14.8) H Platelet Count 184 K/UL (150-450) 189 K/UL (150-450) Mean Platelet Volume 6.5 FL (6.5-10.1) 7.2 FL (6.5-10.1) Neutrophils (%) (Auto) 60.1 % (45.0-75.0) % (45.0-75.0) Lymphocytes (%) (Auto) 31.3 % (20.0-45.0) % (20.0-45.0) Monocytes (%) (Auto) 6.1 % (1.0-10.0) % (1.0-10.0) Eosinophils (%) (Auto) 1.2 % (0.0-3.0) % (0.0-3.0) Basophils (%) (Auto) 1.4 % (0.0-2.0) % (0.0-2.0) Sodium Level 143 MMOL/L (136-145) 144 MMOL/L (136-145) Potassium Level 3.7 MMOL/L (3.5-5.1) 3.9 MMOL/L (3.5-5.1) Chloride Level 103 MMOL/L (98-107) 106 MMOL/L (98-107) Carbon Dioxide Level 27 MMOL/L (21-32) 27 MMOL/L (21-32) Anion Gap 13 mmol/L (5-15) 11 mmol/L (5-15) Blood Urea Nitrogen 19 mg/dL (7-18) H 11 mg/dL (7-18) Creatinine 1.0 MG/DL (0.55-1.30) 1.1 MG/DL (0.55-1.30) Estimat Glomerular Filtration Rate > 60 mL/min (>60) > 60 mL/min (>60) Glucose Level 139 MG/DL (74-106) H 177 MG/DL (74-106) H Lactic Acid Level 3.70 mmol/L (0.4-2.0) H 3.40 mmol/L (0.66-2.22) H Calcium Level 8.9 MG/DL (8.5-10.1) 8.4 MG/DL (8.5-10.1) L Total Bilirubin 0.8 MG/DL (0.2-1.0) Aspartate Amino Transf (AST/SGOT) 294 U/L (15-37) H Alanine Aminotransferase (ALT/SGPT) 130 U/L (12-78) H Alkaline Phosphatase 176 U/L (46-116) H Total Protein 8.0 G/DL (6.4-8.2) Albumin 4.1 G/DL (3.4-5.0) Globulin 3.9 g/dL Albumin/Globulin Ratio 1.1 (1.0-2.7) Lipase 220 U/L (73-393) Urine Color Pale yellow Urine Appearance Clear Urine pH 7 (4.5-8.0) Urine Specific [place] 1.005 (1.005-1.035) Urine Protein Negative (NEGATIVE) Urine Glucose (UA) Negative (NEGATIVE) Urine Ketones Negative (NEGATIVE) Urine Blood 1+ (NEGATIVE) H Urine Nitrite Negative (NEGATIVE) Urine Bilirubin Negative (NEGATIVE) Urine Urobilinogen Normal MG/DL (0.0-1.0) Urine Leukocyte Esterase 3+ (NEGATIVE) H Urine RBC 2-4 /HPF (0 - 2) H Urine WBC 5-10 /HPF (0 - 2) H Urine Squamous Epithelial Cells Few /LPF (NONE/OCC) Urine Bacteria Few /HPF (NONE) Differential Total Cells Counted 100 Neutrophils % (Manual) 60 % (45-75) Lymphocytes % (Manual) 32 % (20-45) Monocytes % (Manual) 7 % (1-10) Eosinophils % (Manual) 1 % (0-3) Basophils % (Manual) 0 % (0-2) Band Neutrophils 0 % (0-8) Platelet Estimate Adequate Platelet Morphology Normal Hypochromasia 1+ Anisocytosis 1+ Macrocytosis 2+ Test 12/25/18 09:35 Prothrombin Time 11.4 SEC (9.30-11.50) Prothromb Time International Ratio 1.1 (0.9-1.1) Hepatitis A IgM Antibody Pending Hepatitis B Surface Antigen Pending Hepatitis B Core IgM Antibody Pending Hepatitis C Antibody Pending Microbiology Date/Time Source Procedure Growth Status 12/24/18 18:40 Stool Stool Culture Pending Resulted 12/24/18 18:40 Stool Clostridium difficile Toxin Assay - Final Resulted Height (Feet): 5 Height (Inches): 7.00 Weight (Pounds): 173 Medications Current Medications Medications (Trade) Dose Ordered Sig/Tadeo Route PRN Reason Start Time Stop Time Status Last Admin Dose Admin Carvedilol (Coreg) 12.5 mg EVERY 12 HOURS ORAL 12/24/18 21:45 01/23/19 21:44 12/25/18 09:22 Ceftriaxone Sodium 2 gm/ Dextrose 55 ml @ 110 mls/hr DAILY IVPB 12/25/18 10:00 01/01/19 09:59 12/25/18 10:54 Dextrose (Dextrose 50%) 25 ml Q30M PRN IV Hypoglycemia 12/25/18 00:30 01/24/19 00:29 Dextrose (Dextrose 50%) 50 ml Q30M PRN IV Hypoglycemia 12/25/18 00:30 01/24/19 00:29 Heparin Sodium (Porcine) (Heparin 5000 units/ml) 5,000 units EVERY 12 HOURS SUBQ 12/25/18 09:00 01/24/19 08:59 12/25/18 09:23 Hydralazine HCl (Apresoline) 10 mg Q6H PRN IV SBP >160 12/25/18 00:30 01/24/19 00:29 12/25/18 00:54 Hydralazine HCl (Apresoline) 25 mg Q6H PRN ORAL SBP >160 12/24/18 22:45 01/23/19 22:44 Insulin Aspart (NovoLOG) BEFORE MEALS AND HS SUBQ 12/25/18 06:30 01/24/19 06:29 12/25/18 05:54 Levetiracetam 100 ml @ 400 mls/hr Q12HR IVPB 12/25/18 09:00 01/24/19 00:44 12/25/18 09:22 Lorazepam (Ativan) 0.5 mg THREE TIMES A DAY ORAL 12/24/18 21:41 12/31/18 21:40 12/25/18 08:09 Metronidazole 100 ml @ 100 mls/hr Q8HR IVPB 12/25/18 09:00 01/01/19 08:59 12/25/18 09:57 Ondansetron HCl (Zofran) 4 mg Q4H PRN IVP Nausea & Vomiting 12/24/18 21:45 01/23/19 21:44 12/25/18 11:16 Sodium Chloride 1,000 ml @ 50 mls/hr Q20H IV 12/25/18 09:15 01/24/19 09:14 12/25/18 09:57 Tramadol HCl (Ultram) 50 mg Q6H PRN ORAL moderate pain 12/24/18 21:45 12/31/18 21:44 12/25/18 05:05 Trazodone HCl (Desyrel) 100 mg BEDTIME ORAL 12/24/18 23:00 01/23/19 22:59 Assessment/Plan Problem List: (1) Abdominal pain Assessment & Plan: 48-year-old female with generalized abdominal pain, diarrhea , nausea, vomiting. Patient states that she feels better as admission and believes it is likely related to the antibiotic she is recently received. States it is a generalized cramping pain likely related to her nausea and emesis and diarrhea. No peritoneal signs on examination labs noted. No acute surgical intervention recommended or necessary at this time. We will follow with recommendations. Okay for diet as tolerated. Antibiotics as per infectious disease. Outpatient follow-up with her primary care physician. Thank you for allowing me to participate in patient's care ICD Codes: R10.9 - Unspecified abdominal pain SNOMED: [id number] Demetrius Roque Dec 25, 2018 12:04
[2018-12-25] MEDS ORDERED: Carvedilol 12.5mg tab ORAL SCH (12:45)
[2018-12-25] MEDS ORDERED: traMADol 50mg tab ORAL PRN (12:45)
--- NOTE | 2018-12-25 12:53 | History and Physical ---
History of Present Illness General Date patient seen: Dec 25, 2018 Time patient seen: 12:30 Reason for Hospitalization: Nausea, Vomiting, and Diarrhea Present Illness HPI "48-year-old female presents ED for evaluation. Patient complaining of abdominal pain with vomiting and diarrhea. Started 2 weeks ago. States that she was seen by her PMD and was told that she has C. difficile. Was started on vancomycin. States she is been taking the medication for 2 weeks now but states there is no improvement. Feels weak and dehydrated. Was told by her PMD to go to the ER. Denies fevers or chills. Denies cramping, 7 out of 10, nonradiating. Denies recent travel or recent antibiotic use. No other aggravating relieving factors. Denies any other associated symptoms GI consulted for reported persistent diarrhea. Patient seen, awake alert and oriented x4 no apparent distress has current complaint of nausea without vomiting. Patient reported persistent diarrhea after her discharge date here at [facility] approximately 2 weeks ago. The patient denied any melena or hematochezia. Patient was given antibiotics for C. difficile by her primary physician with no improvement. Patient reports no bowel movement today and that her diarrhea has improved. Patient is a tobacco, EtOH user, denies any drug use. Patient is refusing any endoscopic or colonoscopy at this time. Abdominal pelvis CT from previous admission shows hepatomegaly. Labs reviewed; no leukocytosis, no anemia, AST of 291, ALT of 130, alkaline phosphatase of 176 , C. difficile negative." the above history was confirmed with patient. Prior admission, labs, imaging and chart reviewed. Patient states she is feeling better after admission and denies diarrhea or vomiting. Allergies: Coded Allergies: No Known Allergies (Unverified , 11/07/17) Medication History Scheduled Allopurinol* (Allopurinol*), 300 MG ORAL DAILY, (Reported) Amlodipine Besylate (Norvasc), 5 MG ORAL DAILY Atorvastatin (Lipitor), 80 MG ORAL BEDTIME Bacitracin (Bacitracin), 1 APPLIC TOPIC THREE TIMES A DAY Carvedilol (Coreg), 12.5 MG ORAL EVERY 12 HOURS Furosemide* (Lasix*), 40 MG ORAL DAILY Gabapentin* (Gabapentin*), 300 MG ORAL THREE TIMES A DAY, (Reported) Insulin Glargine (Lantus), 60 UNITS SUBQ BEDTIME, (Reported) Levothyroxine Sodium* (Levothyroxine Sodium), 50 MCG PO DAILY, (Reported) Lorazepam* (Lorazepam*), 0.5 MG ORAL TID, (Reported) Omeprazole (Omeprazole), 40 MG ORAL DAILY, (Reported) Paroxetine Hcl* (Paxil*), 20 MG PO DAILY, (Reported) Trazodone Hcl* (Desyrel*), 100 MG ORAL BEDTIME, (Reported) Scheduled PRN Ondansetron* (Zofran*), 4 MG ORAL Q6H PRN for Nausea & Vomiting, (Reported) Tramadol Hcl* (Ultram*), 50 MG ORAL BID PRN for For Pain, (Reported) Miscellaneous Medications Naltrexone Microspheres (Vivitrol), 380 MG IM, (Reported) Patient History Healthcare decision maker Resuscitation status Full Code Advanced Directive on File Review of Systems All Other Systems: negative except mentioned in HPI Physical Exam General Appearance: WD/WN, no apparent distress, alert Lines, tubes and drains: peripheral HEENT: normocephalic, atraumatic, anicteric Neck: non-tender, normal alignment, supple Respiratory/Chest: chest wall non-tender, normal breath sounds, no respiratory distress Cardiovascular/Chest: normal peripheral pulses, normal rate, regular rhythm Abdomen: normal bowel sounds, non tender, soft, no organomegaly, no mass Extremities: normal range of motion, non-tender 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 normal, oriented x 3 Last 24 Hour Vital Signs Date Time Temp Pulse Resp B/P (MAP) Pulse Ox O2 Delivery O2 Flow Rate FiO2 12/25/18 09:22 76 137/76 12/25/18 08:00 71 12/25/18 08:00 98.1 76 18 137/76 (96) 98 12/25/18 03:57 98.5 86 140/87 (104) 12/25/18 03:24 88 12/25/18 02:07 87 140/81 (100) 12/25/18 00:54 165/101 12/25/18 00:45 98.3 127 18 165/101 (122) 98 12/24/18 23:26 71 12/24/18 22:28 102 164/104 12/24/18 21:13 98 12/24/18 21:00 97.4 102 20 164/104 (124) 95 12/24/18 21:00 Room Air 12/24/18 20:45 98.5 94 20 136/88 99 Room Air 12/24/18 20:45 98.5 94 20 136/88 99 Room Air 12/24/18 19:09 98.5 94 20 136/88 99 Room Air 12/24/18 15:35 98.1 87 14 128/97 Room Air 12/24/18 14:43 98.6 78 15 128/94 (105) 96 Room Air Intake and Output 12/24/18 12/25/18 19:00 07:00 Intake Total 1100 ml 0 ml Balance 1100 ml 0 ml Intake Oral 0 ml IV Total 1100 ml # Voids 3 # Bowel Movements 1 Laboratory Tests Test 12/24/18 15:26 12/24/18 17:10 12/24/18 17:53 12/25/18 06:00 White Blood Count 6.7 K/UL (4.8-10.8) 8.2 K/UL (4.8-10.8) Red Blood Count 3.59 M/UL (4.20-5.40) L 3.44 M/UL (4.20-5.40) L Hemoglobin 12.7 G/DL (12.0-16.0) 12.3 G/DL (12.0-16.0) Hematocrit 39.4 % (37.0-47.0) 38.7 % (37.0-47.0) Mean Corpuscular Volume 110 FL (80-99) H 113 FL (80-99) H Mean Corpuscular Hemoglobin 35.4 PG (27.0-31.0) H 35.7 PG (27.0-31.0) H Mean Corpuscular Hemoglobin Concent 32.2 G/DL (32.0-36.0) 31.7 G/DL (32.0-36.0) L Red Cell Distribution Width 18.1 % (11.6-14.8) H 16.2 % (11.6-14.8) H Platelet Count 184 K/UL (150-450) 189 K/UL (150-450) Mean Platelet Volume 6.5 FL (6.5-10.1) 7.2 FL (6.5-10.1) Neutrophils (%) (Auto) 60.1 % (45.0-75.0) % (45.0-75.0) Lymphocytes (%) (Auto) 31.3 % (20.0-45.0) % (20.0-45.0) Monocytes (%) (Auto) 6.1 % (1.0-10.0) % (1.0-10.0) Eosinophils (%) (Auto) 1.2 % (0.0-3.0) % (0.0-3.0) Basophils (%) (Auto) 1.4 % (0.0-2.0) % (0.0-2.0) Sodium Level 143 MMOL/L (136-145) 144 MMOL/L (136-145) Potassium Level 3.7 MMOL/L (3.5-5.1) 3.9 MMOL/L (3.5-5.1) Chloride Level 103 MMOL/L (98-107) 106 MMOL/L (98-107) Carbon Dioxide Level 27 MMOL/L (21-32) 27 MMOL/L (21-32) Anion Gap 13 mmol/L (5-15) 11 mmol/L (5-15) Blood Urea Nitrogen 19 mg/dL (7-18) H 11 mg/dL (7-18) Creatinine 1.0 MG/DL (0.55-1.30) 1.1 MG/DL (0.55-1.30) Estimat Glomerular Filtration Rate > 60 mL/min (>60) > 60 mL/min (>60) Glucose Level 139 MG/DL (74-106) H 177 MG/DL (74-106) H Lactic Acid Level 3.70 mmol/L (0.4-2.0) H 3.40 mmol/L (0.66-2.22) H Calcium Level 8.9 MG/DL (8.5-10.1) 8.4 MG/DL (8.5-10.1) L Total Bilirubin 0.8 MG/DL (0.2-1.0) Aspartate Amino Transf (AST/SGOT) 294 U/L (15-37) H Alanine Aminotransferase (ALT/SGPT) 130 U/L (12-78) H Alkaline Phosphatase 176 U/L (46-116) H Total Protein 8.0 G/DL (6.4-8.2) Albumin 4.1 G/DL (3.4-5.0) Globulin 3.9 g/dL Albumin/Globulin Ratio 1.1 (1.0-2.7) Lipase 220 U/L (73-393) Urine Color Pale yellow Urine Appearance Clear Urine pH 7 (4.5-8.0) Urine Specific [place] 1.005 (1.005-1.035) Urine Protein Negative (NEGATIVE) Urine Glucose (UA) Negative (NEGATIVE) Urine Ketones Negative (NEGATIVE) Urine Blood 1+ (NEGATIVE) H Urine Nitrite Negative (NEGATIVE) Urine Bilirubin Negative (NEGATIVE) Urine Urobilinogen Normal MG/DL (0.0-1.0) Urine Leukocyte Esterase 3+ (NEGATIVE) H Urine RBC 2-4 /HPF (0 - 2) H Urine WBC 5-10 /HPF (0 - 2) H Urine Squamous Epithelial Cells Few /LPF (NONE/OCC) Urine Bacteria Few /HPF (NONE) Differential Total Cells Counted 100 Neutrophils % (Manual) 60 % (45-75) Lymphocytes % (Manual) 32 % (20-45) Monocytes % (Manual) 7 % (1-10) Eosinophils % (Manual) 1 % (0-3) Basophils % (Manual) 0 % (0-2) Band Neutrophils 0 % (0-8) Platelet Estimate Adequate Platelet Morphology Normal Hypochromasia 1+ Anisocytosis 1+ Macrocytosis 2+ Test 12/25/18 09:35 Prothrombin Time 11.4 SEC (9.30-11.50) Prothromb Time International Ratio 1.1 (0.9-1.1) Total Bilirubin Pending Direct Bilirubin Pending Aspartate Amino Transf (AST/SGOT) Pending Alanine Aminotransferase (ALT/SGPT) Pending Alkaline Phosphatase Pending Total Protein Pending Albumin Pending Hepatitis A IgM Antibody Pending Hepatitis B Surface Antigen Pending Hepatitis B Core IgM Antibody Pending Hepatitis C Antibody Pending Microbiology Date/Time Source Procedure Growth Status 12/24/18 18:40 Stool Stool Culture Pending Resulted 12/24/18 18:40 Stool Clostridium difficile Toxin Assay - Final Resulted Height (Feet): 5 Height (Inches): 7.00 Weight (Pounds): 173 Medications Current Medications Medications (Trade) Dose Ordered Sig/Tadeo Route PRN Reason Start Time Stop Time Status Last Admin Dose Admin Allopurinol (Allopurinol) 300 mg DAILY ORAL 12/25/18 12:45 01/24/19 12:44 UNV Amlodipine Besylate (Norvasc) 5 mg DAILY ORAL 12/25/18 12:45 01/24/19 12:44 UNV Atorvastatin Calcium (Lipitor) 80 mg BEDTIME ORAL 12/25/18 21:00 01/24/19 20:59 UNV Bacitracin (Bacitracin 15gm tube) 1 applic THREE TIMES A DAY TOPIC 12/25/18 13:00 01/24/19 12:59 UNV Carvedilol (Coreg) 12.5 mg EVERY 12 HOURS ORAL 12/24/18 21:45 01/23/19 21:44 12/25/18 09:22 Carvedilol (Coreg) 12.5 mg EVERY 12 HOURS ORAL 12/25/18 12:45 01/24/19 12:44 UNV Ceftriaxone Sodium 2 gm/ Dextrose 55 ml @ 110 mls/hr DAILY IVPB 12/25/18 10:00 01/01/19 09:59 12/25/18 10:54 Dextrose (Dextrose 50%) 25 ml Q30M PRN IV Hypoglycemia 12/25/18 00:30 01/24/19 00:29 Dextrose (Dextrose 50%) 50 ml Q30M PRN IV Hypoglycemia 12/25/18 00:30 01/24/19 00:29 Gabapentin (Neurontin) 300 mg THREE TIMES A DAY ORAL 12/25/18 13:00 01/24/19 12:59 UNV Heparin Sodium (Porcine) (Heparin 5000 units/ml) 5,000 units EVERY 12 HOURS SUBQ 12/25/18 09:00 01/24/19 08:59 12/25/18 09:23 Hydralazine HCl (Apresoline) 10 mg Q6H PRN IV SBP >160 12/25/18 00:30 01/24/19 00:29 12/25/18 00:54 Hydralazine HCl (Apresoline) 25 mg Q6H PRN ORAL SBP >160 12/24/18 22:45 01/23/19 22:44 Insulin Aspart (NovoLOG) BEFORE MEALS AND HS SUBQ 12/25/18 06:30 01/24/19 06:29 12/25/18 12:21 Levetiracetam 100 ml @ 400 mls/hr Q12HR IVPB 12/25/18 09:00 01/24/19 00:44 12/25/18 09:22 Lorazepam (Ativan) 0.5 mg THREE TIMES A DAY ORAL 12/24/18 21:41 12/31/18 21:40 12/25/18 12:22 Lorazepam (Ativan) 0.5 mg TID ORAL 12/25/18 13:00 01/01/19 12:59 UNV Metronidazole 100 ml @ 100 mls/hr Q8HR IVPB 12/25/18 09:00 01/01/19 08:59 12/25/18 09:57 Ondansetron HCl (Zofran) 4 mg Q4H PRN IVP Nausea & Vomiting 12/24/18 21:45 01/23/19 21:44 12/25/18 11:16 Ondansetron HCl (Zofran) 4 mg Q6H PRN ORAL Nausea & Vomiting 12/25/18 12:45 01/24/19 12:44 UNV Paroxetine HCl (Paxil) 20 mg DAILY ORAL 12/25/18 12:45 01/24/19 12:44 UNV Tramadol HCl (Ultram) 50 mg BID PRN ORAL For Pain 12/25/18 12:45 01/01/19 12:44 UNV Tramadol HCl (Ultram) 50 mg Q6H PRN ORAL moderate pain 12/24/18 21:45 12/31/18 21:44 12/25/18 05:05 Trazodone HCl (Desyrel) 100 mg BEDTIME ORAL 12/24/18 23:00 01/23/19 22:59 Trazodone HCl (Desyrel) 100 mg BEDTIME ORAL 12/25/18 21:00 01/24/19 20:59 UNV Assessment/Plan Problem List: (1) Elevated LFTs ICD Codes: R94.5 - Abnormal results of liver function studies SNOMED: 052628016, 248784279 (2) Dehydration ICD Codes: E86.0 - Dehydration SNOMED: 84487298 (3) Persistent vomiting ICD Codes: R11.10 - Vomiting, unspecified SNOMED: 039657719 (4) Colitis ICD Codes: K52.9 - Noninfective gastroenteritis and colitis, unspecified SNOMED: 07083320 (5) Seizure disorder ICD Codes: G40.909 - Epilepsy, unspecified, not intractable, without status epilepticus SNOMED: 524718277 (6) Diastolic CHF ICD Codes: I50.30 - Unspecified diastolic (congestive) heart failure SNOMED: 82265504, 222324663 Diagnosis [place] I: # Vomiting and diarrhea 2/2 gastroenteritis +/- colitis - improved - on rocephin flagyl, however no fever, white count or symptoms, will consider dc tomorrow - ID consult - s/p 2+ liters - ct a/p prior admission reviewed: nad # Lactic acidosis - ivf - iv abx - ctm # h/o cdiff - negative # Diastolic HF - patient euvolemic - hold lasix - continue other cardiac meds including coresg, asa, statin # Depression - cont psyche meds: paxil # Seizure d/o - seizure precautions - cont home keppra # DM - glucose controlled - check a1c - hold Kalli King DO Dec 25, 2018 12:53
[2018-12-25 12:58] LABS: BILIRUBIN,DIRECT 0.2 MG/DL (0.0-0.3); BILIRUBIN,TOTAL 0.9 MG/DL (0.2-1.0)
[2018-12-25] MEDS ORDERED: LORazepam 0.5mg tab ORAL SCH (13:00)
[2018-12-25] MEDS: PARoxetine 20mg tab ORAL SCH (13:00)
[2018-12-25] MEDS ORDERED: Bacitracin Oint 15gm Tube TOPIC SCH (13:00)
--- NOTE | 2018-12-25 14:33 | NUR ---
NURSE NOTES: Spoke with Dr. Brewer regarding the patient's condition. The patient can be monitored at telemetry even though her lactic acid level is 3.4. Will continue to monitor the patient. Addendum: 12/25/18 at 1435 by Mason Allan RN Time should be corrected into 0900.
--- NOTE | 2018-12-25 14:41 | NUR ---
NURSE NOTES: The patient is stable without acute distress or shortness of breath. Will continue to monitor the patient.
--- NOTE | 2018-12-25 15:56 | NUR ---
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
--- NOTE | 2018-12-25 15:58 | Infectious Diseases Prog Note ---
Assessment/Plan Assessment/Plan Full consult dictated: A) 1) ? infectious diarrhea, ? viral gastroenteritis 2) c.diff. - negative 3) allergies - nkda, pmh noted P) 1) ceftriaxone and flagyl 2) check stool cultures, ivf 3) if stool cultures negative then consider discontinue abx 4) d/w Dr. Brewer 5) thank you Subjective Allergies: Coded Allergies: No Known Allergies (Unverified , 11/07/17) Objective Vital Signs Last 24 Hour Vital Signs Date Time Temp Pulse Resp B/P (MAP) Pulse Ox O2 Delivery O2 Flow Rate FiO2 12/25/18 13:31 54 155/99 12/25/18 12:00 98.5 58 18 155/99 (117) 99 12/25/18 12:00 54 12/25/18 09:22 76 137/76 12/25/18 09:00 Room Air 12/25/18 08:00 71 12/25/18 08:00 98.1 76 18 137/76 (96) 98 12/25/18 03:57 98.5 86 140/87 (104) 12/25/18 03:24 88 12/25/18 02:07 87 140/81 (100) 12/25/18 00:54 165/101 12/25/18 00:45 98.3 127 18 165/101 (122) 98 12/24/18 23:26 71 12/24/18 22:28 102 164/104 12/24/18 21:13 98 12/24/18 21:00 97.4 102 20 164/104 (124) 95 12/24/18 21:00 Room Air 12/24/18 20:45 98.5 94 20 136/88 99 Room Air 12/24/18 20:45 98.5 94 20 136/88 99 Room Air 12/24/18 19:09 98.5 94 20 136/88 99 Room Air Height (Feet): 5 Height (Inches): 7.00 Weight (Pounds): 173 Microbiology Date/Time Source Procedure Growth Status 12/24/18 18:40 Stool Stool Culture Pending Resulted 12/24/18 18:40 Stool Clostridium difficile Toxin Assay - Final Resulted Laboratory Tests Test 12/24/18 17:10 12/24/18 17:53 12/25/18 06:00 12/25/18 09:35 Urine Color Pale yellow Urine Appearance Clear Urine pH 7 (4.5-8.0) Urine Specific [place] 1.005 (1.005-1.035) Urine Protein Negative (NEGATIVE) Urine Glucose (UA) Negative (NEGATIVE) Urine Ketones Negative (NEGATIVE) Urine Blood 1+ (NEGATIVE) H Urine Nitrite Negative (NEGATIVE) Urine Bilirubin Negative (NEGATIVE) Urine Urobilinogen Normal MG/DL (0.0-1.0) Urine Leukocyte Esterase 3+ (NEGATIVE) H Urine RBC 2-4 /HPF (0 - 2) H Urine WBC 5-10 /HPF (0 - 2) H Urine Squamous Epithelial Cells Few /LPF (NONE/OCC) Urine Bacteria Few /HPF (NONE) Lactic Acid Level 3.40 mmol/L (0.66-2.22) H White Blood Count 8.2 K/UL (4.8-10.8) Red Blood Count 3.44 M/UL (4.20-5.40) L Hemoglobin 12.3 G/DL (12.0-16.0) Hematocrit 38.7 % (37.0-47.0) Mean Corpuscular Volume 113 FL (80-99) H Mean Corpuscular Hemoglobin 35.7 PG (27.0-31.0) H Mean Corpuscular Hemoglobin Concent 31.7 G/DL (32.0-36.0) L Red Cell Distribution Width 16.2 % (11.6-14.8) H Platelet Count 189 K/UL (150-450) Mean Platelet Volume 7.2 FL (6.5-10.1) Neutrophils (%) (Auto) % (45.0-75.0) Lymphocytes (%) (Auto) % (20.0-45.0) Monocytes (%) (Auto) % (1.0-10.0) Eosinophils (%) (Auto) % (0.0-3.0) Basophils (%) (Auto) % (0.0-2.0) Differential Total Cells Counted 100 Neutrophils % (Manual) 60 % (45-75) Lymphocytes % (Manual) 32 % (20-45) Monocytes % (Manual) 7 % (1-10) Eosinophils % (Manual) 1 % (0-3) Basophils % (Manual) 0 % (0-2) Band Neutrophils 0 % (0-8) Platelet Estimate Adequate Platelet Morphology Normal Hypochromasia 1+ Anisocytosis 1+ Macrocytosis 2+ Sodium Level 144 MMOL/L (136-145) Potassium Level 3.9 MMOL/L (3.5-5.1) Chloride Level 106 MMOL/L (98-107) Carbon Dioxide Level 27 MMOL/L (21-32) Anion Gap 11 mmol/L (5-15) Blood Urea Nitrogen 11 mg/dL (7-18) Creatinine 1.1 MG/DL (0.55-1.30) Estimat Glomerular Filtration Rate > 60 mL/min (>60) Glucose Level 177 MG/DL (74-106) H Calcium Level 8.4 MG/DL (8.5-10.1) L Prothrombin Time 11.4 SEC (9.30-11.50) Prothromb Time International Ratio 1.1 (0.9-1.1) Total Bilirubin 0.9 MG/DL (0.2-1.0) Direct Bilirubin 0.2 MG/DL (0.0-0.3) Aspartate Amino Transf (AST/SGOT) 366 U/L (15-37) H Alanine Aminotransferase (ALT/SGPT) 146 U/L (12-78) H Alkaline Phosphatase 177 U/L (46-116) H Total Protein 8.0 G/DL (6.4-8.2) Albumin 4.0 G/DL (3.4-5.0) Hepatitis A IgM Antibody Pending Hepatitis B Surface Antigen Pending Hepatitis B Core IgM Antibody Pending Hepatitis C Antibody Pending Current Medications Medications (Trade) Dose Ordered Sig/Tadeo Route PRN Reason Start Time Stop Time Status Last Admin Dose Admin Allopurinol (Allopurinol) 300 mg DAILY ORAL 12/25/18 13:00 01/24/19 12:59 Amlodipine Besylate (Norvasc) 5 mg DAILY ORAL 12/25/18 13:00 01/24/19 12:59 12/25/18 13:31 Atorvastatin Calcium (Lipitor) 80 mg BEDTIME ORAL 12/25/18 21:00 01/24/19 20:59 Carvedilol (Coreg) 12.5 mg EVERY 12 HOURS ORAL 12/24/18 21:45 01/23/19 21:44 12/25/18 09:22 Ceftriaxone Sodium 2 gm/ Dextrose 55 ml @ 110 mls/hr DAILY IVPB 12/25/18 10:00 01/01/19 09:59 12/25/18 10:54 Dextrose (Dextrose 50%) 25 ml Q30M PRN IV Hypoglycemia 12/25/18 00:30 01/24/19 00:29 Dextrose (Dextrose 50%) 50 ml Q30M PRN IV Hypoglycemia 12/25/18 00:30 01/24/19 00:29 Gabapentin (Neurontin) 300 mg THREE TIMES A DAY ORAL 12/25/18 13:00 01/24/19 12:59 Heparin Sodium (Porcine) (Heparin 5000 units/ml) 5,000 units EVERY 12 HOURS SUBQ 12/25/18 09:00 01/24/19 08:59 12/25/18 09:23 Hydralazine HCl (Apresoline) 10 mg Q6H PRN IV SBP >160 12/25/18 00:30 01/24/19 00:29 12/25/18 00:54 Hydralazine HCl (Apresoline) 25 mg Q6H PRN ORAL SBP >160 12/24/18 22:45 01/23/19 22:44 Insulin Aspart (NovoLOG) BEFORE MEALS AND HS SUBQ 12/25/18 06:30 01/24/19 06:29 12/25/18 05:54 Levetiracetam 100 ml @ 400 mls/hr Q12HR IVPB 12/25/18 09:00 01/24/19 00:44 12/25/18 09:22 Lorazepam (Ativan) 0.5 mg THREE TIMES A DAY ORAL 12/24/18 21:41 12/31/18 21:40 12/25/18 12:22 Metronidazole 100 ml @ 100 mls/hr Q8HR IVPB 12/25/18 09:00 01/01/19 08:59 12/25/18 14:06 Ondansetron HCl (Zofran) 4 mg Q4H PRN IVP Nausea & Vomiting 12/24/18 21:45 01/23/19 21:44 12/25/18 11:16 Paroxetine HCl (Paxil) 20 mg DAILY ORAL 12/25/18 13:00 01/24/19 12:59 Tramadol HCl (Ultram) 50 mg Q6H PRN ORAL moderate pain 12/24/18 21:45 12/31/18 21:44 12/25/18 05:05 Trazodone HCl (Desyrel) 100 mg BEDTIME ORAL 12/24/18 23:00 01/23/19 22:59 Nehal Ford MD Dec 25, 2018 15:58
--- NOTE | 2018-12-25 18:18 | Cardiology Report ---
APPROVED REPORT EKG Measurement Heart [id number] Sinus rhythm with 1st degree AV block Low voltage QRS Cannot rule out Anterior infarct, age undetermined Prolonged QT Abnormal ECG
[2018-12-25] MEDS ORDERED: LEVETIRACETAM500 MG ORAL (18:38)
--- NOTE | 2018-12-25 19:11 | NUR ---
HAND-OFF: Report given to ANGELA Houser. The patient is resting on the bed without acute distress or shortness of breath. The patient's bed in the lowest position, call light in reach, and fall, aspiration, and seizure precaution reinforced. Endorsed plan of care .
--- NOTE | 2018-12-25 19:13 | NUR ---
NURSE NOTES: The most recent lactic acid figure was 1.00. The patient is stable without acute distress or shortness of breath. Will continue plan of care.
--- NOTE | 2018-12-25 20:00 | NUR ---
NURSE NOTES: Received patient from Serene MILLER. Patient in bed, on room air, no s/s of respiratory distress. Patient restless, anxious wanting to go home, refusing medications. Explained to patient that she needs her medications, patient agreed to take the trazadone and coreg but still refused heparin and lipitor.
[2018-12-25] MEDS ORDERED: MUPIROCIN22 GM TOPIC (20:09)
[2018-12-25] MEDS ORDERED: VENTOLIN HFA18 GM INH (20:09)
[2018-12-25] MEDS: TraZODone 100mg tab ORAL SCH (20:20)
[2018-12-25] MEDS ORDERED: Atorvastatin 80mg tab ORAL SCH (21:00)
[2018-12-25] MEDS ORDERED: TraZODone 100mg tab ORAL SCH (21:00)
--- NOTE | 2018-12-25 21:00 | NUR ---
NURSE NOTES: Patient still upset and complaining about not being able to eat and wanting to go home. Told patient the doctor will be contacted to change diet from NPO to something else. Patient was still upset. BNlood sugar 133, held insulin because patient is NPO.
--- NOTE | 2018-12-25 21:15 | Consultation ---
DATE OF CONSULTATION: 12/25/2018 INFECTIOUS DISEASE CONSULT CONSULTING PHYSICIAN: Nehal Ford M.D. ATTENDING PHYSICIAN: Binu Maldonado M.D. REFERRING PHYSICIAN: Kalli Brewer M.D. REASON FOR CONSULTATION: Possible infectious diarrhea and viral gastroenteritis. CHIEF COMPLAINT: The patient's chief complaint coming to the hospital is colitis, weakness. HISTORY OF PRESENT ILLNESS: This is a 48-year-old female, who comes into [facility] with nausea, vomiting, or diarrhea. She had abdominal discomfort with diarrhea; however, no dusty abdominal pain. Per the records, she did have abdominal pain coming in and this is possibly happening for 10 to 14 days. I guess she was told she has C. diff and was given p.o. Vanco and she took medication for 2 weeks without improvement. The patient had stool studies here at [facility] and the C. diff here is negative. Currently, she is on Rocephin and Flagyl. The C. diff testing here again is negative. Stool culture is pending. The patient is currently on Rocephin and Flagyl and getting IV fluids. Case discussed with Dr. Brewer. The patient says that her nausea, vomiting, diarrhea have improved. Abdominal pain is improved also. REVIEW OF SYSTEMS: CONSTITUTIONAL: She has no fever, chills, night sweats. She has some fatigue. No focal weakness. HEAD AND NECK: No head pain, neck pain. CARDIAC: No chest pain. GASTROINTESTINAL: She did come in with nausea, vomiting, diarrhea, and abdominal pain. GENITOURINARY: No dysuria or frequency. PULMONARY: No congestion or shortness of breath. SKIN: No rash. NEUROLOGIC: No seizures. EXTREMITIES: No extremity pain. PAST MEDICAL HISTORY: The patient has a past medical history of diarrhea in the past, possible C. diff. However, her C. diff screen is negative. Other past medical history includes seizures, diabetes, depression, diastolic CHF in addition to the episodes of nausea, vomiting, abdominal pain. She did have a previous CT scan on her previous admission in November. It looks like what her imaging studies showed the following, it showed atelectasis and hepatomegaly. It looks like also she has hypertension, asthma, possible dyslipidemia. She is on anti-lipid medication though I am not clear on this. As I discussed, CHF. She also had diabetes, seizure disorder, depression. ALLERGIES: She has no known drug allergies. SOCIAL HISTORY: Negative for smoking, alcohol, or drug use. FAMILY HISTORY: Noncontributory. MEDICATIONS: Upon reviewing the MAR, she is on following medications. She is on Lipitor, atorvastatin, allopurinol, amlodipine, , Norvasc. She is on Neurontin. She is on Paxil. She is on Rocephin, Flagyl. She is on metronidazole . She is on NovoLog insulin, hydralazine, trazodone, Zofran, carvedilol, lorazepam, tramadol, Coreg. Outside medications noted and reconciliated. PHYSICAL EXAMINATION: VITAL SIGNS: Temperature is 98.5, pulse rate 54, respiratory rate 18, blood pressure 155/99, saturation 99% on room air. GENERAL: Alert, responsive. No acute distress. HEAD AND NECK: Oral exam, no thrush. Eyes, no icterus. Neck is supple. No JVD. Normocephalic. HEART: Regular. No gallop or murmur. No friction rub. ABDOMEN: Soft. Positive bowel sounds. No rebound. Nontender. LUNGS: Clear bilaterally. No rhonchi or rales. SKIN: No rash. MUSCULOSKELETAL: No effusion. Legs are without cellulitis. PERIPHERAL VASCULAR: No cyanosis. GENITOURINARY: No Frausto. LINE SITES: Without phlebitis. NEUROLOGIC: Intact. Nonfocal. LABORATORY DATA: White count 8.2, hemoglobin 12.3. Creatinine 1.1. UA had only 5 to 10 white blood cells. I do not think urine culture was done. Stool for C. diff is negative. Stool for culture is pending. I think blood cultures were done also. ASSESSMENT AND PLAN: 1. The patient has nausea, vomiting, abdominal pain, diarrhea, rule out viral gastroenteritis, rule out infectious diarrhea. Continue Rocephin and Flagyl. C. diff is negative. Check stool for cultures and I believe O and P was also ordered. If the cultures and parasitic workup is negative, I will consider stopping the Rocephin and Flagyl. Continue IV fluids per primary care team. Again, continue Rocephin and Flagyl for possible infectious diarrhea and viral gastroenteritis pending stool studies. Again, if negative, consider discontinuing antibiotics. 2. Dehydration. IV fluids. 3. Nausea, vomiting, abdominal pain. Surgery saw the patient. No surgical intervention at this time. 4. Previous CT scan noted. 5. History of seizures. 6. Diabetes. 7. Hypertension. 8. Seizure disorder. 9. Possible dyslipidemia. 10. Blood sugar and blood pressure treatment per primary for diabetes and hypertension. 11. CHF. 12. Asthma. 13. History of pancreatitis in the past. 14. Lipase was normal. 15. Continue treatment per primary consultants. 16. No known drug allergies. 17. Social history negative. 18. Family history noncontributory. 19. MAR is noted. 20. Case discussed with RN. 21. Case discussed with Dr. Brewer. Nehal Ford M.D. DR: DARRELL JOB#: [id number] CC:
--- NOTE | 2018-12-25 22:45 | NUR ---
NURSE NOTES: Received orders from Dr. Brewer to change diet to clear liquid diet as tolerated.
[2018-12-26] VITALS: BP 122/68
[2018-12-26 04:00] VITALS: BP 139/91
--- NOTE | 2018-12-26 04:15 | NUR ---
NURSE NOTES: Patient awake, anxious, crying, angry about being in the hospital, threatening to leave AMA. "I'm gonna get on the elevator and walk out." Administered zofran 4m ivp for nausea.
--- NOTE | 2018-12-26 05:00 | NUR ---
NURSE NOTES: Patient still agitated, worrying about getting back home, crying, complaining of being uncomfortable. Offered tramadol, patient agreed. Gave tramadol 50mg po.
[2018-12-26] MEDS: traMADol 50mg tab ORAL PRN (05:01)
[2018-12-26] MEDS: NovoLOG Insulin Flexpen SUBQ SCH ×2 (06:33→12:21)
--- NOTE | 2018-12-26 07:25 | NUR ---
HAND-OFF: Report given to Varsha MILLER.
[2018-12-26 07:31] LABS: HEMATOCRIT 36.2 % (37.0-47.0); HEMOGLOBIN 11.4 G/DL (12.0-16.0); MEAN CORPUSCULAR VOLUME 114 FL (80-99); PLATELET COUNT 153 K/UL (150-450); RED BLOOD COUNT 3.18 M/UL (4.20-5.40); RED CELL DISTRIBUTION WIDTH 15.6 % (11.6-14.8); WHITE BLOOD COUNT 6.9 K/UL (4.8-10.8)
--- NOTE | 2018-12-26 07:51 | NUR ---
NURSE NOTES: Received patient from Diandra Houser. Patient awake and alert at bedside. No c/o pain or discomfort. Reminded re: safety precautions. will follow.
[2018-12-26 07:58] LABS: ALANINE AMINOTRANSFERASE 86 U/L (12-78); ALBUMIN 3.7 G/DL (3.4-5.0); ALKALINE PHOSPHATASE 159 U/L (46-116); ANION GAP 12 mmol/L (5-15); ASPARTATE AMINO TRANSFERASE 168 U/L (15-37); BILIRUBIN,TOTAL 0.9 MG/DL (0.2-1.0); BLOOD UREA NITROGEN 10 mg/dL (7-18); CALCIUM 8.4 MG/DL (8.5-10.1); CARBON DIOXIDE 25 MMOL/L (21-32); CHLORIDE 106 MMOL/L (98-107); CREATININE 0.9 MG/DL (0.55-1.30); POTASSIUM 3.4 MMOL/L (3.5-5.1); SODIUM 143 MMOL/L (136-145)
[2018-12-26 08:00] VITALS: BP 130/84
[2018-12-26] MEDS: PARoxetine 20mg tab ORAL SCH (08:33)
[2018-12-26] MEDS: Carvedilol 12.5mg tab ORAL SCH ×2 (08:33→08:42)
[2018-12-26] MEDS: LORazepam 0.5mg tab ORAL SCH ×2 (08:34→12:18)
[2018-12-26] MEDS: Heparin 5000 units/ml inj SUBQ SCH (08:38)
[2018-12-26] MEDS: levETIRAcetam 500mg/NS100ml 100 ML IVPB SCH (09:09)
[2018-12-26] MEDS: cefTRIAXone 2 GM in D5W 55 ML IVPB SCH (09:13)
--- NOTE | 2018-12-26 09:58 | GI Progress Note ---
Assessment/Plan Problems: (1) Abdominal pain ICD Codes: R10.9 - Unspecified abdominal pain SNOMED: 96060621 (2) Pancreatitis ICD Codes: K85.90 - Acute pancreatitis without necrosis or infection, unspecified SNOMED: 78446911 (3) Anemia ICD Codes: D64.9 - Anemia, unspecified SNOMED: 733668043 (4) Persistent vomiting ICD Codes: R11.10 - Vomiting, unspecified SNOMED: 197273081 (5) C. difficile diarrhea ICD Codes: A04.72 - Enterocolitis due to Clostridium difficile, not specified as recurrent SNOMED: 1256204210443 (6) Elevated LFTs ICD Codes: R94.5 - Abnormal results of liver function studies SNOMED: 868798460, 285765446 (7) Dehydration ICD Codes: E86.0 - Dehydration SNOMED: 83337179 (8) Alcoholism ICD Codes: F10.20 - Alcohol dependence, uncomplicated SNOMED: 1020434 Status: stable Status Narrative Discussed with Dr. Lanier. Assessment/Plan C. difficile is negative, patient reports diarrhea has improved 2:1 AST: ALT 2/2 to ETOH okay for DC per GI standpoint No plans for GI procedures at this time, patient refused. Advance diet as tolerated IV and p.o. hydration Electrolyte correction Zofran as needed, Reglan for persistent nausea and vomiting Diabetes mellitus management PPI Trend LFTs The patient was seen and examined at bedside and all new and available data was reviewed in the patients chart. I agree with the above findings, impression and plan. (Patient seen earlier today. Signature stamp does not reflect patient encounter time.). - Jono Lanier MD Subjective Gastrointestinal/Abdominal: Reports: no symptoms Objective Last 24 Hour Vital Signs Date Time Temp Pulse Resp B/P (MAP) Pulse Ox O2 Delivery O2 Flow Rate FiO2 12/26/18 08:33 63 130/84 12/26/18 08:00 98.1 63 22 130/84 (99) 98 12/26/18 04:00 98.1 63 18 139/91 (107) 98 12/26/18 03:57 118 12/26/18 00:00 98.4 88 18 122/68 (86) 96 12/25/18 23:32 87 12/25/18 21:00 Room Air 12/25/18 20:20 91 118/72 8/7/19 20:00 98.2 91 18 118/72 (87) 95 12/25/18 19:02 54 12/25/18 16:00 98.3 93 18 146/99 (115) 97 12/25/18 16:00 80 12/25/18 13:31 54 155/99 12/25/18 12:00 98.5 58 18 155/99 (117) 99 12/25/18 12:00 54 Intake and Output 12/25/18 12/26/18 19:00 07:00 Intake Total 625 ml Balance 625 ml Intake Oral 270 ml IV Total 355 ml # Voids 5 3 # Bowel Movements 1 2 Laboratory Tests Test 12/25/18 15:40 12/26/18 06:04 Lactic Acid Level 1.00 mmol/L (0.4-2.0) White Blood Count 6.9 K/UL (4.8-10.8) Red Blood Count 3.18 M/UL (4.20-5.40) L Hemoglobin 11.4 G/DL (12.0-16.0) L Hematocrit 36.2 % (37.0-47.0) L Mean Corpuscular Volume 114 FL (80-99) H Mean Corpuscular Hemoglobin 36.0 PG (27.0-31.0) H Mean Corpuscular Hemoglobin Concent 31.5 G/DL (32.0-36.0) L Red Cell Distribution Width 15.6 % (11.6-14.8) H Platelet Count 153 K/UL (150-450) Mean Platelet Volume 8.5 FL (6.5-10.1) Neutrophils (%) (Auto) % (45.0-75.0) Lymphocytes (%) (Auto) % (20.0-45.0) Monocytes (%) (Auto) % (1.0-10.0) Eosinophils (%) (Auto) % (0.0-3.0) Basophils (%) (Auto) % (0.0-2.0) Neutrophils % (Manual) Pending Lymphocytes % (Manual) Pending Platelet Estimate Pending Platelet Morphology Pending Sodium Level 143 MMOL/L (136-145) Potassium Level 3.4 MMOL/L (3.5-5.1) L Chloride Level 106 MMOL/L (98-107) Carbon Dioxide Level 25 MMOL/L (21-32) Anion Gap 12 mmol/L (5-15) Blood Urea Nitrogen 10 mg/dL (7-18) Creatinine 0.9 MG/DL (0.55-1.30) Estimat Glomerular Filtration Rate > 60 mL/min (>60) Glucose Level 159 MG/DL (74-106) H Hemoglobin A1c 5.2 % (4.3-6.0) Calcium Level 8.4 MG/DL (8.5-10.1) L Total Bilirubin 0.9 MG/DL (0.2-1.0) Aspartate Amino Transf (AST/SGOT) 168 U/L (15-37) H Alanine Aminotransferase (ALT/SGPT) 86 U/L (12-78) H Alkaline Phosphatase 159 U/L (46-116) H Total Protein 7.5 G/DL (6.4-8.2) Albumin 3.7 G/DL (3.4-5.0) Globulin 3.8 g/dL Albumin/Globulin Ratio 1.0 (1.0-2.7) HIV (1&2) Antibody Rapid Negative (NEGATIVE) Height (Feet): 5 Height (Inches): 7.00 Weight (Pounds): 173 General Appearance: WD/WN, no apparent distress, alert Cardiovascular: normal rate Respiratory/Chest: normal breath sounds, no respiratory distress Abdominal Exam: normal bowel sounds, non tender, soft Extremities: normal range of motion, non-tender Susie Caputo NP Dec 26, 2018 09:58
[2018-12-26 12:00] VITALS: BP 135/77
--- NOTE | 2018-12-26 13:12 | Discharge Instructions ---
Discharge Instructions Discharge Instructions Follow up with: Primary Care Diet: regular Resume Normal Activity?: Yes Activity: resume normal activities For Congestive Heart Failure Reminder Report to your physician any weight gain of 5 pounds or more in one week. Kalli Brewer DO Dec 26, 2018 13:12
--- NOTE | 2018-12-26 14:07 | NUR ---
[employer] SI: COLITIS T. 97.0 HR 63 RR 22 B/P 135/77 RA 99% K 3.4 AST 168 ALT 86 ALK PHOS 159 IS: CEFTRIAXONE IV KEPPRA IV FLAGYL IV HEPARIN SUBC TELE STATUS
--- NOTE | 2018-12-26 14:10 | Discharge Summary ---
Discharge Summary Hospital Course Date of Admission Dec 24, 2018 at 16:55 Date of Discharge 12/26/18 Admitting Diagnosis COLITIS Reason for Hospitalization: diarrhea, nausea, vomiting HPI Asa Berrios is a 48 year old female who was admitted on Dec 24, 2018 at 16 :55 for Colitis, Weakness Consultations Infectious Disease, General Surgery, Gastroenterology Procedures none Hospital Course Patient was admitted for diarrhea and given IVF, abx. Her liver function tests were c/w alcoholic transaminitis.She improved over one day with normal labs and negative diff, stool studies pending, however symptoms all resolved and patient eating well with no nausea, vomiting, or abd pain. # Vomiting and diarrhea 2/2 gastroenteritis +/- colitis - improved - s/p rocephin flagyl - ID consulted - s/p 2+ liters - ct a/p prior admission reviewed: nad # Lactic acidosis- resolved - ivf - iv abx completed - ctm # h/o cdiff - negative # Diastolic HF - patient euvolemic - hold lasix->continued on dc, needs f/u w pcp - continue other cardiac meds including coreg, asa, statin # Depression - cont psyche meds: paxil # Seizure d/o - seizure precautions - cont home keppra # DM, well controlled - glucose controlled - check a1c: 5 - hold levemir Discharge Medications Continued Medications: Albuterol Sulfate (Ventolin Hfa) 18 Gm Hfa.aer.ad 1 PUFF INH EVERY 6 HOURS, #18 GM 0 Refills (This prescription has been renewed) Allopurinol* (Allopurinol*) 300 Mg Tablet 300 MG ORAL DAILY, TAB (This prescription has been renewed) Amlodipine Besylate (Norvasc) 5 Mg Tablet 5 MG ORAL DAILY for 30 Days, #30 TAB 1 Refill Atorvastatin (Lipitor) 80 Mg Tablet 80 MG ORAL BEDTIME for 30 Days, #30 TAB 0 Refills Carvedilol (Coreg) 12.5 Mg Tablet 12.5 MG ORAL EVERY 12 HOURS for 30 Days, #90 TAB 1 Refill Furosemide* (Lasix*) 40 Mg Tablet 40 MG ORAL DAILY for 30 Days, #30 TAB 0 Refills Gabapentin* (Gabapentin*) 300 Mg Capsule 300 MG ORAL THREE TIMES A DAY, CAP 0 Refills (This prescription has been renewed ) Levetiracetam* (Levetiracetam*) 500 Mg Tablet 500 MG ORAL TWICE A DAY for SEIZURE, #60 TAB 0 Refills (This prescription has been renewed) Lorazepam* (Lorazepam*) 0.5 Mg Tablet 0.5 MG ORAL TID, TAB Naltrexone Microspheres (Vivitrol) 380 Mg Ayana.er.rec 380 MG IM (This prescription has been renewed) Omeprazole (Omeprazole) 40 Mg Capsule.dr 40 MG ORAL DAILY, CAP (This prescription has been renewed) Ondansetron* (Zofran*) 4 Mg Tablet 4 MG ORAL Q6H PRN for Nausea & Vomiting, TAB (This prescription has been renewed ) Tramadol Hcl* (Ultram*) 50 Mg Tablet 50 MG ORAL BID PRN for For Pain, #30 TAB 0 Refills Trazodone Hcl* (Desyrel*) 100 Mg Tablet 100 MG ORAL BEDTIME, TAB (This prescription has been renewed) Discontinued Medications: Bacitracin (Bacitracin) 28.4 Gm Oint...g. 1 APPLIC TOPIC THREE TIMES A DAY for 7 Days, GM Insulin Glargine (Lantus) 100 Unit/1 Ml Insuln.pen 60 UNITS SUBQ BEDTIME, #1 EA 0 Refills Mupirocin* (Mupirocin*) 22 Gm Oint...g. 1 APPLIC TOPIC THREE TIMES A DAY, GM Discharge Condition Upon Discharge: stable Discharge Disposition Patient was discharged to home Discharge Diagnoses: (1) Elevated LFTs (2) Alcoholism (3) Seizure disorder (4) Diastolic CHF (5) Bipolar 1 disorder Discharge Instructions Discharge Instructions Follow up with: Primary Care Activity: resume normal activities Kalli Brewer DO Dec 26, 2018 14:10
--- NOTE | 2018-12-26 14:57 | NUR ---
NURSE NOTES: Patient discharge to Home as per MD's Order. Patient left floor stable. No c/o pain or discomfort VSS. Next of kin aware of discharge. All belongings/ meds given to patient to take home. D/C instructions discussed with patient. verbalizes understanding. Parient provided with transportation Taxi voucher. picked up at 1415.
--- NOTE | 2018-12-26 15:00 | Surgery Progress Note ---
Surgery Progress Note Subjective Additional Comments no acute events doing better tolerating diet ready for d/c today Objective Last 24 Hour Vital Signs Date Time Temp Pulse Resp B/P (MAP) Pulse Ox O2 Delivery O2 Flow Rate FiO2 12/26/18 12:00 97.0 58 22 135/77 (96) 98 12/26/18 12:00 58 12/26/18 12:00 Room Air 12/26/18 08:33 63 130/84 12/26/18 08:00 60 12/26/18 08:00 98.1 63 22 130/84 (99) 98 12/26/18 04:00 98.1 63 18 139/91 (107) 98 12/26/18 03:57 118 12/26/18 00:00 98.4 88 18 122/68 (86) 96 12/25/18 23:32 87 12/25/18 21:00 Room Air 12/25/18 20:20 91 118/72 12/25/18 20:00 98.2 91 18 118/72 (87) 95 12/25/18 19:02 54 12/25/18 16:00 98.3 93 18 146/99 (115) 97 12/25/18 16:00 80 I&O Intake and Output 12/25/18 12/26/18 18:59 06:59 Intake Total 745 ml Balance 745 ml Intake Oral 390 ml IV Total 355 ml # Voids 5 3 # Bowel Movements 1 2 Cardiovascular: RSR Respiratory: clear Abdomen: soft, non-tender, present bowel sounds, non-distended Extremities: no edema, no tenderness, no cyanosis Laboratory Tests Test 12/25/18 15:40 12/26/18 06:04 Lactic Acid Level 1.00 mmol/L (0.4-2.0) White Blood Count 6.9 K/UL (4.8-10.8) Red Blood Count 3.18 M/UL (4.20-5.40) L Hemoglobin 11.4 G/DL (12.0-16.0) L Hematocrit 36.2 % (37.0-47.0) L Mean Corpuscular Volume 114 FL (80-99) H Mean Corpuscular Hemoglobin 36.0 PG (27.0-31.0) H Mean Corpuscular Hemoglobin Concent 31.5 G/DL (32.0-36.0) L Red Cell Distribution Width 15.6 % (11.6-14.8) H Platelet Count 153 K/UL (150-450) Mean Platelet Volume 8.5 FL (6.5-10.1) Neutrophils (%) (Auto) % (45.0-75.0) Lymphocytes (%) (Auto) % (20.0-45.0) Monocytes (%) (Auto) % (1.0-10.0) Eosinophils (%) (Auto) % (0.0-3.0) Basophils (%) (Auto) % (0.0-2.0) Differential Total Cells Counted 100 Neutrophils % (Manual) 69 % (45-75) Lymphocytes % (Manual) 21 % (20-45) Monocytes % (Manual) 8 % (1-10) Eosinophils % (Manual) 2 % (0-3) Basophils % (Manual) 0 % (0-2) Band Neutrophils 0 % (0-8) Platelet Estimate Adequate Platelet Morphology Normal Hypochromasia 1+ Anisocytosis 1+ Macrocytosis 2+ Sodium Level 143 MMOL/L (136-145) Potassium Level 3.4 MMOL/L (3.5-5.1) L Chloride Level 106 MMOL/L (98-107) Carbon Dioxide Level 25 MMOL/L (21-32) Anion Gap 12 mmol/L (5-15) Blood Urea Nitrogen 10 mg/dL (7-18) Creatinine 0.9 MG/DL (0.55-1.30) Estimat Glomerular Filtration Rate > 60 mL/min (>60) Glucose Level 159 MG/DL (74-106) H Hemoglobin A1c 5.2 % (4.3-6.0) Calcium Level 8.4 MG/DL (8.5-10.1) L Total Bilirubin 0.9 MG/DL (0.2-1.0) Aspartate Amino Transf (AST/SGOT) 168 U/L (15-37) H Alanine Aminotransferase (ALT/SGPT) 86 U/L (12-78) H Alkaline Phosphatase 159 U/L (46-116) H Total Protein 7.5 G/DL (6.4-8.2) Albumin 3.7 G/DL (3.4-5.0) Globulin 3.8 g/dL Albumin/Globulin Ratio 1.0 (1.0-2.7) HIV (1&2) Antibody Rapid Negative (NEGATIVE) Plan Problems: (1) Abdominal pain Assessment & Plan: 48-year-old female with generalized abdominal pain, diarrhea , nausea, vomiting. Patient states that she feels better as admission and believes it is likely related to the antibiotic she is recently received. States it is a generalized cramping pain likely related to her nausea and emesis and diarrhea. No peritoneal signs on examination labs noted. No acute surgical intervention recommended or necessary at this time. We will follow with recommendations. Okay for diet as tolerated. Antibiotics as per infectious disease. Outpatient follow-up with her primary care physician. Thank you for allowing me to participate in patient's care Demetrius Roque Dec 26, 2018 15:00
== END 2018-12-26 14:15 | disposition home or self-care (01) | DRG 249 ==
LOC: EMR 15:08 → OBSVTOIN 16:55 → 3E 16:55 → EDBEDREQ 18:07 → 2E 21:55
DX: K52.9 Noninfective gastroenteritis and colitis, unspecified (principal); E86.0 Dehydration; E87.2 Acidosis; I50.32 Chronic diastolic (congestive) heart failure; E11.9 Type 2 diabetes mellitus without complications; F10.20 Alcohol dependence, uncomplicated; F17.200 Nicotine dependence, unspecified, uncomplicated; E03.9 Hypothyroidism, unspecified; Z79.4 Long term (current) use of insulin; G40.909 Epilepsy, unspecified, not intractable, without status epilepticus; R79.89 Other specified abnormal findings of blood chemistry; F31.9 Bipolar disorder, unspecified
CPT/HCPCS: 36415; 76700; 80048; 80053; 81003; 82040; 82247; 82248; 82962; 83036; 83605; 83690; 84075; 84155; 84450; 84460; 85007; 85025; 85610; 86703; 86705; 86709; 86803; 87040; 87045; 87324; 87340; 93005; 96361; 96365; 96368; 99285; J1815; J2405

== ENCOUNTER 2019-07-03 16:05 | Inpatient (IN) | payer OTHER ==
[~2019-07-03] VITALS: Ht 162.6 cm; Wt 71.8 kg
[~2019-07-03 16:05] MED LIST changes: +LEVETIRACETAM500 MG ORAL; +MUPIROCIN22 GM TOPIC; +VENTOLIN HFA18 GM INH
--- NOTE | 2019-07-03 16:15 | Emergency Room Report ---
History of Present Illness General Chief Complaint: Chest Pain Source: Patient, EMS Present Illness HPI 49-year-old female history of hypertension history of CHF presents with shortness of breath that has been ongoing for 3 days, no aggravating alleviating factors no orthopnea no dyspnea on exertion she also endorses some chest tightness that was relieved with nitro in route she denies any fevers or chills no cough or congestion symptoms have been constant patient presents for evaluation severity is moderate Patient during interview states that she wants to go home and feels better Allergies: Coded Allergies: No Known Allergies (Unverified , 11/07/17) Patient History Past Medical History: see triage record Last Menstrual Period: years ago Reviewed Nursing Documentation: PMH: Agreed; PSxH: Agreed Nursing Documentation-PMH Past Medical History: No History, Except For Hx Cardiac Problems: Yes Hx Hypertension: Yes Hx Asthma: Yes Hx Diabetes: Yes Hx Cancer: No Hx Gastrointestinal Problems: Yes - Pancreatitis Hx Neurological Problems: Yes - seizures Hx Seizures: Yes Review of Systems All Other Systems: negative except mentioned in HPI Physical Exam Vital Signs Date Time Temp Pulse Resp B/P (MAP) Pulse Ox O2 Delivery O2 Flow Rate FiO2 07/03/19 16:06 97.0 74 18 102/73 (83) 98 Room Air Sp02 EP Interpretation: reviewed, normal General Appearance: well appearing, no apparent distress, alert Head: normocephalic, atraumatic Eyes: bilateral eye PERRL, bilateral eye EOMI ENT: uvula midline, moist mucus membranes Neck: supple, thyroid normal, supple/symm/no masses Respiratory: lungs clear, no respiratory distress, no retraction, no accessory muscle use Cardiovascular #1: normal peripheral pulses, regular rate, rhythm, no edema, no gallop, no murmur Gastrointestinal: non tender, soft, no guarding, no rebound Musculoskeletal: normal inspection Neurologic: alert, oriented x3 Psychiatric: mood/affect normal Skin: no rash, warm/dry Procedures Critical Care Time Critical Care Time Given the critical condition in which the patient arrived, the patient was immediately assessed by myself and the nurse, and cardiac monitoring initiated due to the potential for rapid decompensation of the patient's clinical condition. During the course of the patient's stay, I spent a considerable amount of time at the bedside performing serial re-evaluations of the patient's hemodynamic and clinical status because of the recognized potential threat to life or limb in this condition. I then had a chance to review not only all of the available current laboratory and radiographic studies obtained today, but I also reviewed old records available to me at the time. Additionally, any ancillary information available including school psychological examiner records were reviewed. Sequential vital signs were obtained. Critical Care time of 33 minutes was performed exclusive of billable procedures. Medical Decision Making Diagnostic Impression: Primary Impression: Chest pain Qualified Codes: R07.9 - Chest pain, unspecified Additional Impression: Hyponatremia ER Course 49-year-old female presents with chest pain, differential diagnosis includes ACS , pneumonia, CHF exacerbation Patient found to be severely hyponatremic sodium 117, plan to start normal saline, will continue to monitor patient given her high risk of decompensation and risk of seizing with low sodium Reevaluation at 6:16 PM patient remained stable We will start fluids Patient to be admitted for electrolyte management and chest pain management by Dr. Sorenson Laboratory Tests Test 07/03/19 16:20 White Blood Count 9.7 K/UL (4.8-10.8) Red Blood Count 3.86 M/UL (4.20-5.40) L Hemoglobin 12.5 G/DL (12.0-16.0) Hematocrit 37.8 % (37.0-47.0) Mean Corpuscular Volume 98 FL (80-99) Mean Corpuscular Hemoglobin 32.4 PG (27.0-31.0) H Mean Corpuscular Hemoglobin Concent 33.1 G/DL (32.0-36.0) Red Cell Distribution Width 16.1 % (11.6-14.8) H Platelet Count 194 K/UL (150-450) Mean Platelet Volume 10.3 FL (6.5-10.1) H Neutrophils (%) (Auto) 70.0 % (45.0-75.0) Lymphocytes (%) (Auto) 20.4 % (20.0-45.0) Monocytes (%) (Auto) 5.6 % (1.0-10.0) Eosinophils (%) (Auto) 2.5 % (0.0-3.0) Basophils (%) (Auto) 1.5 % (0.0-2.0) Sodium Level 117 MMOL/L (136-145) *L Potassium Level 4.4 MMOL/L (3.5-5.1) Chloride Level 78 MMOL/L (98-107) L Carbon Dioxide Level 22 MMOL/L (21-32) Anion Gap 16 mmol/L (5-15) H Blood Urea Nitrogen 73 mg/dL (7-18) H Creatinine 3.4 MG/DL (0.55-1.30) H Estimate Glomerular Filtration Rate 17.5 mL/min (>60) Glucose Level 148 MG/DL (74-106) H Calcium Level 9.9 MG/DL (8.5-10.1) Total Bilirubin 1.3 MG/DL (0.2-1.0) H Direct Bilirubin 0.1 MG/DL (0.0-0.3) Aspartate Amino Transferase (AST) 15 U/L (15-37) Alanine Aminotransferase (ALT) 13 U/L (12-78) Alkaline Phosphatase 121 U/L (46-116) H Troponin I 0.000 ng/mL (0.000-0.056) Pro-B-Type Natriuretic Peptide 486 pg/mL (0-125) H Total Protein 8.6 G/DL (6.4-8.2) H Albumin 4.0 G/DL (3.4-5.0) Globulin 4.6 g/dL Albumin/Globulin Ratio 0.9 (1.0-2.7) L Lipase 236 U/L (73-393) EKG Diagnostic Results EKG Time: 16:11 EP Interpretation: NSR, rate 71, QTc 458, no acute ST elevations, flipped T waves inferior lat Rhythm Strip Diag. Results Rhythm Strip Time: 16:39 EP Interpretation: yes Rate: 71 Rhythm: NSR, no PVC's, no ectopy Chest X-Ray Diagnostic Results Chest X-Ray Diagnostic Results : Chest X-Ray Ordered: Yes # of Views/Limited/Complete: 1 View Indication: Chest Pain EP Interpretation: Yes Interpretation: no consolidation, no effusion, no pneumothorax, no acute cardiopulmonary disease Impression: No acute disease Electronically Signed by: Clyde Lutz MD Last Vital Signs Date Time Temp Pulse Resp B/P (MAP) Pulse Ox O2 Delivery O2 Flow Rate FiO2 07/03/19 16:06 97.0 74 18 102/73 (83) 98 Room Air Disposition: ADMITTED INPATIENT Condition: Serious Clyde Lutz MD Jul 03, 2019 16:15
[2019-07-03 16:16] VITALS: BP 102/73
--- NOTE | 2019-07-03 16:16 | NUR ---
ED Nurse Note: PT FROM HOME AND BROUGHT IN BY RA 69 DUE TO WEAKNESS AND NON-RADIATING SUBSTERNAL CP X2 DAYS. EMS GAVE NTG 1 SPRAY AND ASA 324MG EN ROUTE. PT AAO X4, FOLLOWS COMMANDS, DENIES CP UPON ARRIVAL. NO RESPIRATORY DISTRESS.
--- NOTE | 2019-07-03 16:20 | NUR ---
ED Nurse Note: ENDODONTICS DENTIST AT THE BED SIDE FOR CXR.
--- NOTE | 2019-07-03 16:24 | NUR ---
ED Nurse Note: COLLECTED BLOOD SPECIMEN AND SENT TO LAB.
[2019-07-03 16:32] LABS: BASOPHILS % (AUTO) 1.5 % (0.0-2.0); EOSINOPHILS % (AUTO) 2.5 % (0.0-3.0); HEMATOCRIT 37.8 % (37.0-47.0); HEMOGLOBIN 12.5 G/DL (12.0-16.0); LYMPHOCYTES % (AUTO) 20.4 % (20.0-45.0); MEAN CORPUSCULAR VOLUME 98 FL (80-99); MONOCYTES % (AUTO) 5.6 % (1.0-10.0); PLATELET COUNT 194 K/UL (150-450); RED BLOOD COUNT 3.86 M/UL (4.20-5.40); RED CELL DISTRIBUTION WIDTH 16.1 % (11.6-14.8); WHITE BLOOD COUNT 9.7 K/UL (4.8-10.8)
[2019-07-03 16:58] LABS: ALANINE AMINOTRANSFERASE 13 U/L (12-78); ALBUMIN/GLOBULIN RATIO 0.9 (1.0-2.7); ALKALINE PHOSPHATASE 121 U/L (46-116); ANION GAP 16 mmol/L (5-15); ASPARTATE AMINO TRANSFERASE 15 U/L (15-37); BILIRUBIN,TOTAL 1.3 MG/DL (0.2-1.0); BLOOD UREA NITROGEN 73 mg/dL (7-18); CALCIUM 9.9 MG/DL (8.5-10.1); CARBON DIOXIDE 22 MMOL/L (21-32); CHLORIDE 78 MMOL/L (98-107); CREATININE 3.4 MG/DL (0.55-1.30); POTASSIUM 4.4 MMOL/L (3.5-5.1)
--- NOTE | 2019-07-03 17:06 | Diagnostic Imaging Report ---
Indication: Shortness of breath Technique: One view of the chest Comparison: 11/27/2018 Findings: Old healed left rib fracture deformities are again demonstrated. The heart is mildly enlarged. The lungs and pleural spaces are clear. Findings are unchanged Impression: Cardiomegaly. No acute process
[2019-07-03 17:09] LABS: SODIUM 117 MMOL/L (136-145)
[2019-07-03 17:10] LABS: BILIRUBIN,DIRECT 0.1 MG/DL (0.0-0.3)
[2019-07-03] MEDS ORDERED: fentaNYL 100 mcg/2 mL IV ONE (17:45)
[2019-07-03] MEDS ORDERED: NAPROXEN250 MG ORAL (18:13)
[2019-07-03 18:15] VITALS: BP 101/60
[2019-07-03] MEDS ORDERED: LORazepam Inj 2mg/ml 1ml IV ONE (18:15)
[2019-07-03] MEDS ORDERED: dilTIAZem HCl 25mg/5ml Inj IV PRN (19:00)
[2019-07-03] MEDS ORDERED: Enalaprilat 1.25mg/ml Inj IV PRN (19:00)
[2019-07-03] MEDS ORDERED: Nitroglycerin Subl 0.4mg tab SL PRN (19:00)
[2019-07-03] MEDS ORDERED: Albuterol/Ipratropium 3ml neb HHN PRN (19:00)
[2019-07-03] MEDS ORDERED: Miralax 17gm pkt ORAL PRN (19:00)
--- NOTE | 2019-07-03 19:04 | NUR ---
HAND-OFF: Report given to JELLY MILLER.
[2019-07-03 20:00] VITALS: BP 112/66
[2019-07-03 20:05] VITALS: BP 112/18
--- NOTE | 2019-07-03 20:05 | NUR ---
NURSE NOTES: received pt from Gui MILLER., from ER. pt is AOx4 Bulgarian speaker. pt is in RA with no SOB and no Respiratory distress at this moment. pt is following commands and slow. skin intact, just bruise in left back due to past fall hx. pt states no pain at this moment. monitor technician on, side rails padded. lung sounds are clear bilaterally and diminished bilateral bases. bilateral hands automation tender 4/5. beloning signed pt. frusemide and albuterol is going to take down to pharmacy. right wrist 22G IV site is intact, clean, and patent. call light within reach. bed at the lowest position, alarmed, and locked. will continue to monitor pt with plan of care.
[2019-07-03] MEDS: TraZODone 100mg tab ORAL SCH (21:59)
[2019-07-03] MEDS: Carvedilol 12.5mg tab ORAL SCH (21:59)
[2019-07-03] MEDS: Atorvastatin 80mg tab ORAL SCH (22:00)
[2019-07-03] MEDS: Heparin 5000 units/ml inj SUBQ SCH (22:01)
[2019-07-04] VITALS: BP 106/64
--- NOTE | 2019-07-04 03:00 | NUR ---
NURSE NOTES: pt is resting and sleeping on the bed, no SOB noted. pt states " i want to sleep" will continue to monitor pt closely. call light within reach.
[2019-07-04 04:00] VITALS: BP 96/60
[2019-07-04 05:45] LABS: EOSINOPHILS % (AUTO) 2.7 % (0.0-3.0); HEMATOCRIT 33.5 % (37.0-47.0); HEMOGLOBIN 11.7 G/DL (12.0-16.0); LYMPHOCYTES % (AUTO) 25.4 % (20.0-45.0); MEAN CORPUSCULAR VOLUME 94 FL (80-99); MONOCYTES % (AUTO) 7.8 % (1.0-10.0); NEUTROPHILS % (AUTO) 63.1 % (45.0-75.0); PLATELET COUNT 160 K/UL (150-450); RED BLOOD COUNT 3.55 M/UL (4.20-5.40); RED CELL DISTRIBUTION WIDTH 15.4 % (11.6-14.8); WHITE BLOOD COUNT 9.4 K/UL (4.8-10.8)
[2019-07-04 06:08] LABS: CHOLESTEROL 176 MG/DL (< 200); HDL CHOLESTEROL 40 MG/DL (40-60); TRIGLYCERIDES 299 MG/DL (30-150)
--- NOTE | 2019-07-04 07:26 | NUR ---
HAND-OFF: Report given to Una MILLER. pt is in stable condition
--- NOTE | 2019-07-04 07:27 | NUR ---
NURSE NOTES: Received patient in bed. Asleep, arousable to shaking. Appears lethargic. On continuous IVF of NS running at 100ml/hour. Bed Alarm on. Bed in lowest position. On room air. No respiratory distress. Will continue plan of care.
[2019-07-04 07:49] LABS: ANION GAP 17 mmol/L (5-15); BLOOD UREA NITROGEN 69 mg/dL (7-18); CALCIUM 9.6 MG/DL (8.5-10.1); CARBON DIOXIDE 20 MMOL/L (21-32); CHLORIDE 85 MMOL/L (98-107); CREATININE 2.7 MG/DL (0.55-1.30); POTASSIUM 3.5 MMOL/L (3.5-5.1); SODIUM 122 MMOL/L (136-145)
[2019-07-04 07:59] LABS: ALANINE AMINOTRANSFERASE 12 U/L (12-78); ALBUMIN 3.6 G/DL (3.4-5.0); ALBUMIN/GLOBULIN RATIO 0.9 (1.0-2.7); ALKALINE PHOSPHATASE 107 U/L (46-116); ASPARTATE AMINO TRANSFERASE 21 U/L (15-37)
[2019-07-04 08:00] VITALS: BP 98/71
[2019-07-04] MEDS: Heparin 5000 units/ml inj SUBQ SCH ×2 (09:00→21:26)
[2019-07-04] MEDS: Carvedilol 12.5mg tab ORAL SCH ×2 (09:00→21:27)
--- NOTE | 2019-07-04 09:15 | NUR ---
NURSE NOTES: Patient refused 2D echo test at bedside. Risk and benefits explained.
--- NOTE | 2019-07-04 09:30 | Consultation ---
History of Present Illness General Date patient seen: Jul 04, 2019 Chief Complaint: Chest Pain Present Illness HPI 49-year-old female history of hypertension, CHF presents with chest tightness, shortness of breath that has been ongoing for 3 days. she denies any fevers or chills no cough or congestion symptoms have been constant patient presents for evaluation severity is moderate. Her Na was found to be 117. She is admitted for further management. Allergies: Coded Allergies: No Known Allergies (Unverified , 11/07/17) Medication History Scheduled Albuterol Sulfate (Ventolin Hfa), 1 PUFF INH EVERY 6 HOURS, (Reported) Allopurinol* (Allopurinol*), 300 MG ORAL DAILY, (Reported) Amlodipine Besylate (Norvasc), 5 MG ORAL DAILY Atorvastatin (Lipitor), 80 MG ORAL BEDTIME Carvedilol (Coreg), 12.5 MG ORAL EVERY 12 HOURS Furosemide* (Lasix*), 40 MG ORAL DAILY Gabapentin* (Gabapentin*), 300 MG ORAL THREE TIMES A DAY, (Reported) Levetiracetam* (Levetiracetam*), 500 MG ORAL TWICE A DAY, (Reported) Lorazepam* (Lorazepam*), 0.5 MG ORAL TID, (Reported) Omeprazole (Omeprazole), 40 MG ORAL DAILY, (Reported) Trazodone Hcl* (Desyrel*), 100 MG ORAL BEDTIME, (Reported) Scheduled PRN Naproxen* (Naprosyn*), 250 MG ORAL TID PRN for For Pain, (Reported) Ondansetron* (Zofran*), 4 MG ORAL Q6H PRN for Nausea & Vomiting, (Reported) Tramadol Hcl* (Ultram*), 50 MG ORAL BID PRN for For Pain, (Reported) Miscellaneous Medications Naltrexone Microspheres (Vivitrol), 380 MG IM, (Reported) Patient History Healthcare decision maker Resuscitation status Full Code Advanced Directive on File No Past Medical/Surgical History Past Medical/Surgical History: (1) Bipolar 1 disorder (2) Seizure disorder (3) Hypothyroidism (4) Gout (5) Tobacco abuse (6) Alcoholism Review of Systems All Other Systems: negative except mentioned in HPI Physical Exam General Appearance: WD/WN, no apparent distress Lines, tubes and drains: peripheral, central line HEENT: normocephalic, atraumatic Neck: non-tender, normal alignment Respiratory/Chest: chest wall non-tender, lungs clear Breasts: no masses Cardiovascular/Chest: normal peripheral pulses, normal rate Abdomen: normal bowel sounds, non tender, hyperactive bowel sounds Genitourinary/Rectal: normal genital exam Extremities: normal range of motion Skin Exam: normal pigmentation Last 24 Hour Vital Signs Date Time Temp Pulse Resp B/P (MAP) Pulse Ox O2 Delivery O2 Flow Rate FiO2 07/04/19 08:00 Room Air 07/04/19 04:00 Room Air 07/04/19 04:00 98.7 79 20 96/60 (72) 99 07/04/19 03:43 77 07/04/19 02:47 Room Air 07/04/19 00:00 97.2 83 20 106/64 (78) 99 07/04/19 00:00 Room Air 07/03/19 23:27 89 07/03/19 21:59 65 112/18 07/03/19 20:21 77 07/03/19 20:06 Room Air 07/03/19 20:05 97.2 65 17 112/18 (49) 99 07/03/19 20:00 97.9 80 16 112/66 100 Room Air 07/03/19 20:00 97.9 80 16 112/66 100 Room Air 07/03/19 18:17 97.6 07/03/19 18:15 97.6 78 16 101/60 100 Room Air 07/03/19 16:16 74 18 Room Air 07/03/19 16:16 97.0 74 18 102/73 98 Room Air 07/03/19 16:06 97.0 74 18 102/73 (83) 98 Room Air Intake and Output 07/03/19 07/04/19 19:00 07:00 Intake Total 1000 ml 400 ml Balance 1000 ml 400 ml Intake Oral 100 ml IV Total 1000 ml 300 ml # Voids 5 # Bowel Movements 2 Laboratory Tests Test 07/03/19 16:20 07/03/19 20:55 07/04/19 04:00 White Blood Count 9.7 K/UL (4.8-10.8) 9.4 K/UL (4.8-10.8) Red Blood Count 3.86 M/UL (4.20-5.40) L 3.55 M/UL (4.20-5.40) L Hemoglobin 12.5 G/DL (12.0-16.0) 11.7 G/DL (12.0-16.0) L Hematocrit 37.8 % (37.0-47.0) 33.5 % (37.0-47.0) L Mean Corpuscular Volume 98 FL (80-99) 94 FL (80-99) Mean Corpuscular Hemoglobin 32.4 PG (27.0-31.0) H 33.0 PG (27.0-31.0) H Mean Corpuscular Hemoglobin Concent 33.1 G/DL (32.0-36.0) 35.0 G/DL (32.0-36.0) Red Cell Distribution Width 16.1 % (11.6-14.8) H 15.4 % (11.6-14.8) H Platelet Count 194 K/UL (150-450) 160 K/UL (150-450) Mean Platelet Volume 10.3 FL (6.5-10.1) H 8.8 FL (6.5-10.1) Neutrophils (%) (Auto) 70.0 % (45.0-75.0) 63.1 % (45.0-75.0) Lymphocytes (%) (Auto) 20.4 % (20.0-45.0) 25.4 % (20.0-45.0) Monocytes (%) (Auto) 5.6 % (1.0-10.0) 7.8 % (1.0-10.0) Eosinophils (%) (Auto) 2.5 % (0.0-3.0) 2.7 % (0.0-3.0) Basophils (%) (Auto) 1.5 % (0.0-2.0) 1.0 % (0.0-2.0) Sodium Level 117 MMOL/L (136-145) *L 122 MMOL/L (136-145) L Potassium Level 4.4 MMOL/L (3.5-5.1) 3.5 MMOL/L (3.5-5.1) Chloride Level 78 MMOL/L (98-107) L 85 MMOL/L (98-107) L Carbon Dioxide Level 22 MMOL/L (21-32) 20 MMOL/L (21-32) L Anion Gap 16 mmol/L (5-15) H 17 mmol/L (5-15) H Blood Urea Nitrogen 73 mg/dL (7-18) H 69 mg/dL (7-18) H Creatinine 3.4 MG/DL (0.55-1.30) H 2.7 MG/DL (0.55-1.30) H Estimat Glomerular Filtration Rate 17.5 mL/min (>60) 22.8 mL/min (>60) Glucose Level 148 MG/DL (74-106) H 95 MG/DL (74-106) Calcium Level 9.9 MG/DL (8.5-10.1) 9.6 MG/DL (8.5-10.1) Total Bilirubin 1.3 MG/DL (0.2-1.0) H 1.0 MG/DL (0.2-1.0) Direct Bilirubin 0.1 MG/DL (0.0-0.3) Aspartate Amino Transf (AST/SGOT) 15 U/L (15-37) 21 U/L (15-37) Alanine Aminotransferase (ALT/SGPT) 13 U/L (12-78) 12 U/L (12-78) Alkaline Phosphatase 121 U/L (46-116) H 107 U/L (46-116) Troponin I 0.000 ng/mL (0.000-0.056) 0.000 ng/mL (0.000-0.056) 0.000 ng/mL (0.000-0.056) Pro-B-Type Natriuretic Peptide 486 pg/mL (0-125) H Total Protein 8.6 G/DL (6.4-8.2) H 7.7 G/DL (6.4-8.2) Albumin 4.0 G/DL (3.4-5.0) 3.6 G/DL (3.4-5.0) Globulin 4.6 g/dL 4.1 g/dL Albumin/Globulin Ratio 0.9 (1.0-2.7) L 0.9 (1.0-2.7) L Lipase 236 U/L (73-393) Prothrombin Time 11.1 SEC (9.30-11.50) Prothromb Time International Ratio 1.0 (0.9-1.1) Activated Partial Thromboplast Time 32 SEC (23-33) C-Reactive Protein, Quantitative 1.4 mg/dL (0.00-0.90) H Triglycerides Level 299 MG/DL (30-150) H Cholesterol Level 176 MG/DL (< 200) LDL Cholesterol 93 mg/dL (<100) HDL Cholesterol 40 MG/DL (40-60) Cholesterol/HDL Ratio 4.4 (3.3-4.4) Thyroid Stimulating Hormone (TSH) 2.478 uiU/mL (0.358-3.740) Height (Feet): 5 Height (Inches): 4.00 Weight (Pounds): 159 Medications Current Medications Medications (Trade) Dose Ordered Sig/Tadeo Route PRN Reason Start Time Stop Time Status Last Admin Dose Admin Acetaminophen (Tylenol) 650 mg Q4H PRN ORAL FEVER 07/03/19 19:00 08/02/19 18:59 Albuterol/ Ipratropium (Albuterol/ Ipratropium) 3 ml Q4H PRN HHN Shortness of Breath 07/03/19 19:00 07/08/19 18:59 Allopurinol (allopurinoL) 300 mg DAILY ORAL 07/04/19 09:00 08/03/19 08:59 Amlodipine Besylate (Norvasc) 5 mg DAILY ORAL 07/04/19 09:00 08/03/19 08:59 Aspirin (ASA) 162 mg DAILY ORAL 07/04/19 09:00 08/03/19 08:59 Atorvastatin Calcium (Lipitor) 80 mg BEDTIME ORAL 07/03/19 21:00 08/02/19 20:59 07/03/19 22:00 Carvedilol (Coreg) 12.5 mg EVERY 12 HOURS ORAL 07/03/19 21:00 08/02/19 20:59 07/03/19 21:59 Diltiazem HCl (Cardizem) 10 mg Q1H PRN IV heart rate more than 120, 07/03/19 19:00 08/02/19 18:59 Enalaprilat (Vasotec) 2.5 mg Q6H PRN IV sbp more than 160 07/03/19 19:00 08/02/19 18:59 Gabapentin (Neurontin) 300 mg THREE TIMES A DAY ORAL 07/04/19 09:00 08/03/19 08:59 Heparin Sodium (Porcine) (Heparin 5000 units/ml) 5,000 units EVERY 12 HOURS SUBQ 07/03/19 21:00 08/02/19 20:59 07/03/19 22:01 Levetiracetam (Keppra) 500 mg Q12HR ORAL 07/03/19 21:00 08/02/19 20:59 07/03/19 22:00 Nitroglycerin (Ntg) 0.4 mg Q5M PRN SL Prn Chest Pain 07/03/19 19:00 08/02/19 18:59 Ondansetron HCl (Zofran) 4 mg Q6H PRN IVP Nausea & Vomiting 07/03/19 19:00 08/02/19 18:59 Ondansetron HCl (Zofran) 4 mg Q6H PRN ORAL Nausea & Vomiting 07/03/19 18:45 08/02/19 18:44 Polyethylene Glycol (Miralax) 17 gm DAILYPRN PRN ORAL Constipation 07/03/19 19:00 08/02/19 18:59 Sodium Chloride 1,000 ml @ 100 mls/hr Q10H IV 07/03/19 17:45 08/02/19 17:44 07/04/19 04:28 Temazepam (Restoril) 15 mg HSPRN PRN ORAL Insomnia 07/03/19 19:00 07/10/19 18:59 Trazodone HCl (Desyrel) 100 mg BEDTIME ORAL 07/03/19 21:00 08/02/19 20:59 07/03/19 21:59 Assessment/Plan Problem List: (1) Chest pain ICD Codes: R07.9 - Chest pain, unspecified SNOMED: 12136847 Qualifiers: Qualified Codes: R07.9 - Chest pain, unspecified (2) Abnormal EKG ICD Codes: R94.31 - Abnormal electrocardiogram [ECG] [EKG] SNOMED: 644164561 (3) Hyponatremia ICD Codes: E87.1 - Hypo-osmolality and hyponatremia SNOMED: 92155427 (4) Alcoholism ICD Codes: F10.20 - Alcohol dependence, uncomplicated SNOMED: 2654145 (5) Hypothyroidism ICD Codes: E03.9 - Hypothyroidism, unspecified SNOMED: 17191477 (6) Seizure disorder ICD Codes: G40.909 - Epilepsy, unspecified, not intractable, without status epilepticus SNOMED: 228461585 (7) Tobacco abuse ICD Codes: Z72.0 - Tobacco use SNOMED: 863135628 (8) Bipolar 1 disorder ICD Codes: F31.9 - Bipolar disorder, unspecified SNOMED: 389943960 (9) Gout ICD Codes: M10.9 - Gout, unspecified SNOMED: 73550989 Assessment/Plan: serial ekg, troponin, echo hyponatremia w/u continue seizure meds needs to be seen by psych, since most common cause of her hyponatremia could be excessive water drinking. Fiona Wright MD Jul 04, 2019 09:30
[2019-07-04] MEDS: Aspirin Baby 81mg ORAL SCH (10:09)
--- NOTE | 2019-07-04 10:14 | Consultation ---
Consult Note Consult Note I was asked to evaluate the patient at the request of the Dr Sorenson for renal failure , patient is a 49-year old -[place] female who has was admitted through emergency room for chest pain. Patient was seen in room 236 bed 2. Patient is a poor historian. Cannot give any history of previous kidney disease. 49-year-old female history of hypertension history of CHF presents with shortness of breath that has been ongoing for 3 days, no aggravating alleviating factors no orthopnea no dyspnea on exertion she also endorses some chest tightness that was relieved with nitro in route she denies any fevers or chills no cough or congestion symptoms have been constant patient presents for evaluation severity is moderate Patient during interview states that she wants to go home and feels better No Known Allergies (Unverified , 11/07/17) Past Medical History: No History, Except For Hx Cardiac Problems: Yes Hx Hypertension: Yes Hx Asthma: Yes Hx Diabetes: Yes Hx Gastrointestinal Problems: Yes - Pancreatitis Hx Neurological Problems: Yes - seizures Hx Seizures: Yes examined data reviewed . Assessment/Plan Acute renal failure- Mainly dehydration - been on Lasix ? CKD underlying HypoNatremia ? depletional Anemia Metabolic encephalopathy CP , abnormal EKG Alcoholism Hypothyroid Sz disorder Bipolar Gout Frausto- 3% saline monitor renal parameters LIZBETH kidney 2D echo keep BP in check per orders Barney Mckinney MD Jul 04, 2019 10:14
[2019-07-04] MEDS ORDERED: HydrALAZINE 25mg tab ORAL PRN (10:30)
--- NOTE | 2019-07-04 10:45 | NUR ---
NURSE NOTES: Informed Dr. Wright that patient want's to go home. Patient appears confused. Dr. Wright ordered seroquel 50 mg PO q 12 hours.
[2019-07-04] MEDS ORDERED: NaCl 3% 500ml 500 ML IV ONE (11:00)
[2019-07-04] MEDS: Docusate 100mg cap ORAL SCH ×2 (11:10→17:21)
[2019-07-04 11:11] LABS: APPEARANCE,URINE CLEAR; BILIRUBIN, URINE NEGATIVE (NEGATIVE); COLOR,URINE PALE YELLOW; GLUCOSE, URINE (UA) NEGATIVE (NEGATIVE); KETONES,URINE NEGATIVE (NEGATIVE); LEUKOCYTE ESTERASE ,URINE NEGATIVE (NEGATIVE); NITRITE,URINE NEGATIVE (NEGATIVE); PH,URINE 5 (4.5-8.0); PROTEIN,URINE NEGATIVE (NEGATIVE); UROBILINOGEN,URINE NORMAL MG/DL (0.0-1.0)
--- NOTE | 2019-07-04 11:38 | Diagnostic Imaging Report ---
Indication:Elevated Bun and Creatinine. Technique: Grayscale and duplex Doppler imaging of the kidneys performed. Comparison: None Findings: The size, contour, and echogenicity of both kidneys are within normal limits. There is no hydronephrosis.. The right kidney measures 10.5 cm. in length. The left kidney measures 10.5 cm. in length. The IVC is patent. Urinary bladder is unremarkable. Frausto catheter noted. IMPRESSION: Negative ultrasound the kidneys.
--- NOTE | 2019-07-04 11:51 | NUR ---
CARDIOLOGY Pt refused 2D Echo
[2019-07-04 11:54] LABS: FERRITIN 298 NG/ML (8-388)
[2019-07-04 12:00] VITALS: BP 111/53
[2019-07-04 12:09] LABS: % IRON SATURATION 35 % (15-50); IRON 91 ug/dL (50-175); TOTAL IRON BINDING CAPACITY 260 ug/dL (250-450)
--- NOTE | 2019-07-04 15:41 | History & Physical ---
History and Physical History & Physicial Albuterol Sulfate (Ventolin Hfa), 1 PUFF INH EVERY 6 HOURS, (Reported) Allopurinol* (Allopurinol*), 300 MG ORAL DAILY, (Reported) Amlodipine Besylate (Norvasc), 5 MG ORAL DAILY Atorvastatin (Lipitor), 80 MG ORAL BEDTIME Carvedilol (Coreg), 12.5 MG ORAL EVERY 12 HOURS Furosemide* (Lasix*), 40 MG ORAL DAILY Gabapentin* (Gabapentin*), 300 MG ORAL THREE TIMES A DAY, (Reported) Levetiracetam* (Levetiracetam*), 500 MG ORAL TWICE A DAY, (Reported) Lorazepam* (Lorazepam*), 0.5 MG ORAL TID, (Reported) Omeprazole (Omeprazole), 40 MG ORAL DAILY, (Reported) Trazodone Hcl* (Desyrel*), 100 MG ORAL BEDTIME, (Reported) Saul Sorenson MD Jul 04, 2019 15:41
[2019-07-04 16:00] VITALS: BP 116/77
--- NOTE | 2019-07-04 16:45 | NUR ---
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 97.9 HR 79 RR 18 B/P 102/73 NA 117 BUN 73 CR 3.4 CXR= CARDIOMEGALY RENAL US= NEGATIVE IS: IV BOLUS NS X 1 LITER ZOFRAN IV FENTANYL ADMITTED TO STEP DOWN @ 1999 STEP DOWN STATUS DCP RETURN HOME
--- NOTE | 2019-07-04 16:53 | NUR ---
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 [phone]
--- NOTE | 2019-07-04 19:00 | NUR ---
HAND-OFF: Report given to Carla Hoover RN.
--- NOTE | 2019-07-04 19:01 | NUR ---
NURSE NOTES: received pt from Una MILLER., pt is awake and resting on the bed, RA and no SOB noted at this moment. pt states no pain at the same time. pt is getting hypertonic solution @30ml/hr. on left hand 20G IV site is clean, intact, and patent. side rails are padded. no dysrythmia reported from the previous nurse. pt states she wants to go home soon. call light within reach. bed at the lowest position, alarmed, and locked. will continue to monitor pt with plan of care.
--- NOTE | 2019-07-04 19:51 | NUR ---
NURSE NOTES: spoke to of pt, and per andres, he will crab picker the pt tomorrow. wants the pt to get treated at the hospital at this moment. informed pt, and pt agreed to stay at the hospital till tomorrow morning.
[2019-07-04 20:00] VITALS: BP 108/70
--- NOTE | 2019-07-04 20:30 | History and Physical Report ---
DATE OF ADMISSION: 07/03/2019 CHIEF COMPLAINT: Shortness of breath and chest pain. HISTORY OF PRESENT ILLNESS: This is a 49-year-old female with past medical history significant for hypertension, congestive heart failure, alcoholism, history of seizure disorder as well as gout who presented to the emergency department complaining of chest pain and shortness of breath x3 days. She denies any fever or chills. Denies any cough or chest congestion. Denies any nausea or vomiting. Shortly after initial evaluation in the emergency department, the patient was found to have a sodium of 117 and subsequently the patient was admitted to the hospital with chest pain, shortness of breath as well as hypernatremia. PAST MEDICAL HISTORY/PAST SURGICAL HISTORY: As above. History of hypertension, dyslipidemia, congestive heart failure, alcoholism, bipolar disorder type 1, history of gout, hypothyroidism. MEDICATIONS AT HOME: Please refer to medication reconciliation. ALLERGIES: No known drug allergies. SOCIAL HISTORY: The patient currently drinks alcohol as well as smokes 3 to 4 cigarettes a day. Denies any substance abuse. FAMILY HISTORY: Noncontributory. REVIEW OF SYSTEMS: Mostly as above. Denies any dysuria, frequency, or hematuria. Denies any hemoptysis or hematochezia. Denies any bright red blood per rectum. PHYSICAL EXAMINATION: VITAL SIGNS: On admission, temperature 97.0, pulse of 74, respirations 18, and blood pressure 102/73. GENERAL: The patient awake, responsive, no acute distress. HEAD AND NECK: Pupils are equal and reactive to light. Extraocular movements intact. Neck was supple. Positive JVD. LUNGS: Good air entry. No wheezing or rhonchi. Decreased air in the bases. HEART: S1, S2. Distant heart sounds. No murmurs or gallops. ABDOMEN: Soft, nondistended, nontender. Positive bowel sounds. Mild obesity. EXTREMITIES: No cyanosis, clubbing, or edema. NEUROLOGIC: Cranial nerves II through XII. Moves all 4 extremities. Gait was not assessed due to the patient's status. RECTAL/GENITOURINARY: Refused and deferred. LABORATORY DATA: On admission WBC of 9.7, hemoglobin 12, hematocrit 37, platelets 194. Sodium 117, potassium 4.4, chloride 78, bicarb 22, BUN 73, creatinine 3.4, GFR is 17, glucose is 148. Total bilirubin of 1.3, direct bilirubin of 0.1. Troponin 0.00. ProBNP of 486. Hemoglobin A1c is 6.7. Urine drug screen is negative. UA is essentially unremarkable. Random sodium is less than 20. PT of 11, INR 1.0 PTT of 32. Chest x-ray noted the patient has cardiomegaly. No acute process. The patient's ultrasound of kidneys are unremarkable and negative. ASSESSMENT: 1. Severe hyponatremia. 2. Atypical chest pain. 3. Shortness of breath. 4. Seizure disorder. 5. Bipolar disorder. 6. Hypothyroidism. 7. Gout. 8. Tobacco abuse. 9. Alcoholism. 10. Shortness of air, most likely secondary to fluid overload. PLAN: Admit the patient to [facility]. We will follow up with Dr. Wright from Pulmonary Critical Care and Dr. Mckinney from Nephrology. Monitor sodium level closely. Code status is Full Code. Start the patient on 3% sodium chloride and nebulizer treatment. We will resume home medication. Follow up with the neuro check. Saul Sorenson M.D. DR: STEPHANIE JOB#: [id number] CC:
[2019-07-04] MEDS: TraZODone 100mg tab ORAL SCH (21:24)
[2019-07-04] MEDS: Atorvastatin 80mg tab ORAL SCH (21:24)
[2019-07-05] VITALS: BP 108/64
[2019-07-05 04:00] VITALS: BP 133/66
[2019-07-05 06:45] LABS: EOSINOPHILS % (AUTO) 2.3 % (0.0-3.0); HEMATOCRIT 30.8 % (37.0-47.0); HEMOGLOBIN 10.5 G/DL (12.0-16.0); LYMPHOCYTES % (AUTO) 28.5 % (20.0-45.0); MEAN CORPUSCULAR VOLUME 98 FL (80-99); MONOCYTES % (AUTO) 5.9 % (1.0-10.0); NEUTROPHILS % (AUTO) 62.4 % (45.0-75.0); PLATELET COUNT 174 K/UL (150-450); RED BLOOD COUNT 3.15 M/UL (4.20-5.40); RED CELL DISTRIBUTION WIDTH 16.2 % (11.6-14.8); WHITE BLOOD COUNT 9.1 K/UL (4.8-10.8)
[2019-07-05 06:57] LABS: AMMONIA 10 umol/L (11-32)
--- NOTE | 2019-07-05 06:58 | NUR ---
NURSE NOTES: oral care given, whole bed changed, pt is sitting on the chair waiting for the breakfast. call light within reach. educated pt do not get up without calling us staffs.
[2019-07-05 07:00] LABS: ALANINE AMINOTRANSFERASE 12 U/L (12-78); ALBUMIN 3.2 G/DL (3.4-5.0); ALBUMIN/GLOBULIN RATIO 0.8 (1.0-2.7); ALKALINE PHOSPHATASE 105 U/L (46-116); ANION GAP 9 mmol/L (5-15); ASPARTATE AMINO TRANSFERASE 11 U/L (15-37); BILIRUBIN,TOTAL 0.5 MG/DL (0.2-1.0); BLOOD UREA NITROGEN 57 mg/dL (7-18); CALCIUM 9.4 MG/DL (8.5-10.1); CARBON DIOXIDE 26 MMOL/L (21-32); CHLORIDE 105 MMOL/L (98-107); CREATININE 1.9 MG/DL (0.55-1.30); GAMMA GLUTAMYL TRANSPEPTIDASE 92 U/L (5-85); PHOSPHORUS 3.3 MG/DL (2.5-4.9); POTASSIUM 3.8 MMOL/L (3.5-5.1); SODIUM 140 MMOL/L (136-145)
--- NOTE | 2019-07-05 07:49 | NUR ---
HAND-OFF: Report given to Katie MILLER., pt is stable condition.
[2019-07-05 08:00] VITALS: BP 111/84
[2019-07-05] MEDS ORDERED: Magnesium Oxide 400mg tab ORAL SCH (09:00)
[2019-07-05] MEDS: Docusate 100mg cap ORAL SCH ×2 (10:10→16:20)
[2019-07-05] MEDS: Carvedilol 12.5mg tab ORAL SCH ×2 (10:18→21:52)
[2019-07-05] MEDS: Aspirin Baby 81mg ORAL SCH (10:27)
[2019-07-05] MEDS: Heparin 5000 units/ml inj SUBQ SCH ×2 (10:44→21:55)
--- NOTE | 2019-07-05 11:26 | Nephrology Progress Note ---
Assessment/Plan Problem List: (1) Hyponatremia (2) ROSIE (acute kidney injury) (3) Dehydration (4) Hypothyroidism (5) Seizure disorder (6) Gout (7) Bipolar 1 disorder Assessment Acute renal failure- Mainly dehydration - been on Lasix ? CKD underlying HypoNatremia ? depletional Anemia Metabolic encephalopathy CP , abnormal EKG Alcoholism Hypothyroid Sz disorder Bipolar Gout Plan Frausto- hydrate add cytomel monitor renal parameters LIZBETH kidney negative 2D echo pending keep BP in check per orders Subjective ROS Limited/Unobtainable: No Constitutional: Reports: malaise Objective Objective Last 24 Hour Vital Signs Date Time Temp Pulse Resp B/P (MAP) Pulse Ox O2 Delivery O2 Flow Rate FiO2 07/05/19 10:18 91 125/63 07/05/19 10:09 63 125/91 07/05/19 04:00 Room Air 07/05/19 04:00 98.6 90 19 133/66 (88) 98 07/05/19 03:55 78 07/05/19 00:00 98.4 86 19 108/64 (79) 98 07/05/19 00:00 Room Air 07/04/19 23:53 90 07/04/19 23:53 90 07/04/19 21:27 79 108/70 07/04/19 20:00 Room Air 07/04/19 20:00 98.9 96 18 108/70 (83) 96 07/04/19 19:25 91 07/04/19 16:00 Room Air 07/04/19 16:00 78 07/04/19 16:00 97.3 79 20 116/77 (90) 92 07/04/19 12:00 Room Air 07/04/19 12:00 98.1 83 24 111/53 (72) 97 07/04/19 11:46 83 Intake and Output 07/04/19 07/05/19 19:00 07:00 Intake Total 760 ml 400 ml Output Total 1100 ml 800 ml Balance -340 ml -400 ml Intake Oral 550 ml 400 ml IV Total 210 ml Output Urine Total 1100 ml 800 ml # Voids 1 Current Medications Medications (Trade) Dose Ordered Sig/Tadeo Route PRN Reason Start Time Stop Time Status Last Admin Dose Admin Acetaminophen (Tylenol) 650 mg Q4H PRN ORAL FEVER 07/03/19 19:00 08/02/19 18:59 Albuterol/ Ipratropium (Albuterol/ Ipratropium) 3 ml Q4H PRN HHN Shortness of Breath 07/03/19 19:00 07/08/19 18:59 Amlodipine Besylate (Norvasc) 2.5 mg DAILY ORAL 07/05/19 09:00 08/04/19 08:59 07/05/19 10:09 Aspirin (ASA) 162 mg DAILY ORAL 07/04/19 09:00 08/03/19 08:59 07/05/19 10:27 Atorvastatin Calcium (Lipitor) 80 mg BEDTIME ORAL 07/03/19 21:00 08/02/19 20:59 07/04/19 21:24 Carvedilol (Coreg) 12.5 mg EVERY 12 HOURS ORAL 07/03/19 21:00 08/02/19 20:59 07/05/19 10:18 Diltiazem HCl (Cardizem) 10 mg Q1H PRN IV heart rate more than 120, 07/03/19 19:00 08/02/19 18:59 Docusate Sodium (Colace) 100 mg TWICE A DAY ORAL 07/04/19 10:30 08/03/19 10:29 07/05/19 10:10 Fish Oil (Fish Oil) 1,000 mg BID ORAL 07/04/19 10:30 08/03/19 10:29 07/05/19 10:01 Gabapentin (Neurontin) 300 mg THREE TIMES A DAY ORAL 07/04/19 09:00 08/03/19 08:59 07/05/19 10:22 Heparin Sodium (Porcine) (Heparin 5000 units/ml) 5,000 units EVERY 12 HOURS SUBQ 07/03/19 21:00 08/02/19 20:59 07/05/19 10:44 Hydralazine HCl (Apresoline) 25 mg Q4H PRN ORAL bp over 160 syst 07/04/19 10:30 08/03/19 10:29 Levetiracetam (Keppra) 500 mg Q12HR ORAL 07/03/19 21:00 08/02/19 20:59 07/05/19 10:19 Magnesium Oxide (Mag-Ox 400mg) 400 mg DAILY ORAL 07/05/19 09:00 08/04/19 08:59 07/05/19 10:10 Magnesium Sulfate 100 ml @ 100 mls/hr Q1H IVPB 07/05/19 08:30 07/05/19 12:29 07/05/19 10:24 Nitroglycerin (Ntg) 0.4 mg Q5M PRN SL Prn Chest Pain 07/03/19 19:00 08/02/19 18:59 Ondansetron HCl (Zofran) 4 mg Q6H PRN IVP Nausea & Vomiting 07/03/19 19:00 08/02/19 18:59 Ondansetron HCl (Zofran) 4 mg Q6H PRN ORAL Nausea & Vomiting 07/03/19 18:45 08/02/19 18:44 Pantoprazole (Protonix) 40 mg DAILY ORAL 07/04/19 10:30 08/03/19 10:29 07/05/19 10:24 Polyethylene Glycol (Miralax) 17 gm DAILYPRN PRN ORAL Constipation 07/03/19 19:00 08/02/19 18:59 Quetiapine Fumarate (SEROqueL) 50 mg Q12HR ORAL 07/04/19 21:00 08/03/19 20:59 07/05/19 10:11 Temazepam (Restoril) 15 mg HSPRN PRN ORAL Insomnia 07/03/19 19:00 07/10/19 18:59 Trazodone HCl (Desyrel) 100 mg BEDTIME ORAL 07/03/19 21:00 08/02/19 20:59 07/04/19 21:24 Laboratory Tests 07/05/19 06:11: White Blood Count 9.1, Red Blood Count 3.15L, Hemoglobin 10.5L, Hematocrit 30.8L , Mean Corpuscular Volume 98, Mean Corpuscular Hemoglobin 33.4H, Mean Corpuscular Hemoglobin Concent 34.1, Red Cell Distribution Width 16.2H, Platelet Count 174, Mean Platelet Volume 8.2, Neutrophils (%) (Auto) 62.4, Lymphocytes (%) (Auto) 28.5, Monocytes (%) (Auto) 5.9, Eosinophils (%) (Auto) 2.3, Basophils (%) (Auto) 1.0, Sodium Level 140, Potassium Level 3.8, Chloride Level 105, Carbon Dioxide Level 26, Anion Gap 9, Blood Urea Nitrogen 57H, Creatinine 1.9H, Estimat Glomerular Filtration Rate 34.2, Glucose Level 151H, Uric Acid 6.4, Calcium Level 9.4, Phosphorus Level 3.3, Magnesium Level 1.7L, Total Bilirubin 0.5, Gamma Glutamyl Transpeptidase 92H, Aspartate Amino Transf ( AST/SGOT) 11L, Alanine Aminotransferase (ALT/SGPT) 12, Alkaline Phosphatase 105 , Ammonia 10L, Troponin I 0.008, C-Reactive Protein, Quantitative 1.8H, Pro-B- Type Natriuretic Peptide 324H, Total Protein 7.2, Albumin 3.2L, Globulin 4.0, Albumin/Globulin Ratio 0.8L, Cortisol [Pending] Height (Feet): 5 Height (Inches): 4.00 Weight (Pounds): 158 Barney Mckinney MD Jul 05, 2019 11:26
[2019-07-05 12:00] VITALS: BP 119/75
[2019-07-05] MEDS ORDERED: Tubing IV Secondary IV ONE (15:27)
[2019-07-05 16:00] VITALS: BP 134/60
--- NOTE | 2019-07-05 17:43 | Internal Med Progress Note ---
Subjective Date of Service: Jul 05, 2019 Physician Name Paulo Gotti Attending Physician Saul Sorenson MD Current Medications Medications (Trade) Dose Ordered Sig/Tadeo Route PRN Reason Start Time Stop Time Status Last Admin Dose Admin Acetaminophen (Tylenol) 650 mg Q4H PRN ORAL FEVER 07/03/19 19:00 08/02/19 18:59 Albuterol/ Ipratropium (Albuterol/ Ipratropium) 3 ml Q4H PRN HHN Shortness of Breath 07/03/19 19:00 07/08/19 18:59 Amlodipine Besylate (Norvasc) 2.5 mg DAILY ORAL 07/05/19 09:00 08/04/19 08:59 07/05/19 10:09 Aspirin (ASA) 162 mg DAILY ORAL 07/04/19 09:00 08/03/19 08:59 07/05/19 10:27 Atorvastatin Calcium (Lipitor) 80 mg BEDTIME ORAL 07/03/19 21:00 08/02/19 20:59 07/04/19 21:24 Carvedilol (Coreg) 12.5 mg EVERY 12 HOURS ORAL 07/03/19 21:00 08/02/19 20:59 07/05/19 10:18 Diltiazem HCl (Cardizem) 10 mg Q1H PRN IV heart rate more than 120, 07/03/19 19:00 08/02/19 18:59 Docusate Sodium (Colace) 100 mg TWICE A DAY ORAL 07/04/19 10:30 08/03/19 10:29 07/05/19 16:20 Fish Oil (Fish Oil) 1,000 mg BID ORAL 07/04/19 10:30 08/03/19 10:29 07/05/19 10:01 Folic Acid (Folate) 2 mg DAILY ORAL 07/05/19 11:30 08/04/19 11:29 Gabapentin (Neurontin) 300 mg THREE TIMES A DAY ORAL 07/04/19 09:00 08/03/19 08:59 07/05/19 16:20 Heparin Sodium (Porcine) (Heparin 5000 units/ml) 5,000 units EVERY 12 HOURS SUBQ 07/03/19 21:00 08/02/19 20:59 07/05/19 10:44 Hydralazine HCl (Apresoline) 25 mg Q4H PRN ORAL bp over 160 syst 07/04/19 10:30 08/03/19 10:29 Levetiracetam (Keppra) 500 mg Q12HR ORAL 07/03/19 21:00 08/02/19 20:59 07/05/19 10:19 Liothyronine Sodium (CytomeL) 5 mcg DAILY ORAL 07/06/19 09:00 08/05/19 08:59 Magnesium Oxide (Mag-Ox 400mg) 400 mg DAILY ORAL 07/05/19 09:00 08/04/19 08:59 07/05/19 10:10 Nitroglycerin (Ntg) 0.4 mg Q5M PRN SL Prn Chest Pain 07/03/19 19:00 08/02/19 18:59 Ondansetron HCl (Zofran) 4 mg Q6H PRN IVP Nausea & Vomiting 07/03/19 19:00 08/02/19 18:59 Ondansetron HCl (Zofran) 4 mg Q6H PRN ORAL Nausea & Vomiting 07/03/19 18:45 08/02/19 18:44 Pantoprazole (Protonix) 40 mg BID ORAL 07/05/19 18:00 08/03/19 10:29 Polyethylene Glycol (Miralax) 17 gm DAILYPRN PRN ORAL Constipation 07/03/19 19:00 08/02/19 18:59 Quetiapine Fumarate (SEROqueL) 50 mg Q12HR ORAL 07/04/19 21:00 08/03/19 20:59 07/05/19 10:11 Sodium Chloride 1,000 ml @ 100 mls/hr Q10H IV 07/05/19 11:30 08/04/19 11:29 07/05/19 13:07 Temazepam (Restoril) 15 mg HSPRN PRN ORAL Insomnia 07/03/19 19:00 07/10/19 18:59 Trazodone HCl (Desyrel) 100 mg BEDTIME ORAL 07/03/19 21:00 08/02/19 20:59 07/04/19 21:24 Allergies: Coded Allergies: No Known Allergies (Unverified , 11/07/17) ROS Limited/Unobtainable: No Constitutional: Reports: no symptoms HEENT: Reports: no symptoms Cardiovascular: Reports: chest pain Respiratory: Reports: shortness of breath Gastrointestinal/Abdominal: Reports: no symptoms Genitourinary: Reports: no symptoms Neurologic/Psychiatric: Reports: no symptoms Subjective 49 YO F admitted with shortness of breath and chest pain. Cover for Int Noah-DR Sorenson. [facility] Objective Last Vital Signs Date Time Temp Pulse Resp B/P (MAP) Pulse Ox O2 Delivery O2 Flow Rate FiO2 07/05/19 15:41 Room Air 07/05/19 12:57 91 07/05/19 10:18 125/63 07/05/19 04:00 98.6 19 98 Laboratory Tests Test 07/05/19 06:11 White Blood Count 9.1 K/UL (4.8-10.8) Red Blood Count 3.15 M/UL (4.20-5.40) L Hemoglobin 10.5 G/DL (12.0-16.0) L Hematocrit 30.8 % (37.0-47.0) L Mean Corpuscular Volume 98 FL (80-99) Mean Corpuscular Hemoglobin 33.4 PG (27.0-31.0) H Mean Corpuscular Hemoglobin Concent 34.1 G/DL (32.0-36.0) Red Cell Distribution Width 16.2 % (11.6-14.8) H Platelet Count 174 K/UL (150-450) Mean Platelet Volume 8.2 FL (6.5-10.1) Neutrophils (%) (Auto) 62.4 % (45.0-75.0) Lymphocytes (%) (Auto) 28.5 % (20.0-45.0) Monocytes (%) (Auto) 5.9 % (1.0-10.0) Eosinophils (%) (Auto) 2.3 % (0.0-3.0) Basophils (%) (Auto) 1.0 % (0.0-2.0) Sodium Level 140 MMOL/L (136-145) Potassium Level 3.8 MMOL/L (3.5-5.1) Chloride Level 105 MMOL/L (98-107) Carbon Dioxide Level 26 MMOL/L (21-32) Anion Gap 9 mmol/L (5-15) Blood Urea Nitrogen 57 mg/dL (7-18) H Creatinine 1.9 MG/DL (0.55-1.30) H Estimat Glomerular Filtration Rate 34.2 mL/min (>60) Glucose Level 151 MG/DL (74-106) H Uric Acid 6.4 MG/DL (2.6-7.2) Calcium Level 9.4 MG/DL (8.5-10.1) Phosphorus Level 3.3 MG/DL (2.5-4.9) Magnesium Level 1.7 MG/DL (1.8-2.4) L Total Bilirubin 0.5 MG/DL (0.2-1.0) Gamma Glutamyl Transpeptidase 92 U/L (5-85) H Aspartate Amino Transf (AST/SGOT) 11 U/L (15-37) L Alanine Aminotransferase (ALT/SGPT) 12 U/L (12-78) Alkaline Phosphatase 105 U/L (46-116) Ammonia 10 umol/L (11-32) L Troponin I 0.008 ng/mL (0.000-0.056) C-Reactive Protein, Quantitative 1.8 mg/dL (0.00-0.90) H Pro-B-Type Natriuretic Peptide 324 pg/mL (0-125) H Total Protein 7.2 G/DL (6.4-8.2) Albumin 3.2 G/DL (3.4-5.0) L Globulin 4.0 g/dL Albumin/Globulin Ratio 0.8 (1.0-2.7) L Cortisol Pending Intake and Output 07/04/19 07/05/19 19:00 07:00 Intake Total 760 ml 400 ml Output Total 1100 ml 800 ml Balance -340 ml -400 ml Intake Oral 550 ml 400 ml IV Total 210 ml Output Urine Total 1100 ml 800 ml # Voids 1 Objective PHYSICAL EXAMINATION: GENERAL: The patient awake, responsive, no acute distress. HEAD AND NECK: Pupils are equal and reactive to light. Extraocular movements intact. Neck was supple. Positive JVD. LUNGS: Good air entry. No wheezing or rhonchi. Decreased air in the bases. HEART: S1, S2. Distant heart sounds. No murmurs or gallops. ABDOMEN: Soft, nondistended, nontender. Positive bowel sounds. Mild obesity. EXTREMITIES: No cyanosis, clubbing, or edema. NEUROLOGIC: Cranial nerves II through XII. Moves all 4 extremities. Gait was not assessed due to the patient's status. RECTAL/GENITOURINARY: Refused and deferred. Assessment/Plan Assessment/Plan ASSESSMENT: 1. Severe hyponatremia. 2. Atypical chest pain. 3. Shortness of breath. 4. Seizure disorder. 5. Bipolar disorder. 6. Hypothyroidism. 7. Gout. 8. Tobacco abuse. 9. Alcoholism. 10. Shortness of air, most likely secondary to fluid overload. PLAN: Admit the patient to [facility]. We will follow up with Dr. Wright from Pulmonary Critical Care and Dr. Mckinney from Nephrology. Monitor sodium level closely. Code status is Full Code. Start the patient on 3% sodium chloride and nebulizer treatment. We will resume home medication. Follow up with the neuro check. Paulo Gotti MD Jul 05, 2019 17:43
--- NOTE | 2019-07-05 19:20 | NUR ---
NURSE NOTES: Received patient from ANGELA Barron. In bed. Asleep, easily aroused to light shaking. On continuous IVF of .45NS infusing well at 100cc/hour. Bed Alarm and brakes engaged. Bed in lowest position. On room air. No respiratory distress or SOB noted. SR on lunchroom monitor. Will continue POC.
[2019-07-05 20:00] VITALS: BP 110/75
[2019-07-05] MEDS: Atorvastatin 80mg tab ORAL SCH (21:50)
[2019-07-05] MEDS: TraZODone 100mg tab ORAL SCH (21:51)
[2019-07-06] VITALS: BP 114/68
--- NOTE | 2019-07-06 02:00 | NUR ---
NURSE NOTES: Remain asleep, easily awakened. Denies pain or discomfort. IVF of .45NS infusing well at 100cc/hour. Bed Alarm and brakes engaged. Bed in lowest position. On room air. No respiratory distress or SOB noted. SR on monitor technician. Will continue POC.
[2019-07-06 04:00] VITALS: BP 125/81
[2019-07-06 04:49] LABS: BASOPHILS % (AUTO) 0.8 % (0.0-2.0); EOSINOPHILS % (AUTO) 2.6 % (0.0-3.0); HEMATOCRIT 29.2 % (37.0-47.0); HEMOGLOBIN 9.7 G/DL (12.0-16.0); LYMPHOCYTES % (AUTO) 31.5 % (20.0-45.0); MEAN CORPUSCULAR VOLUME 100 FL (80-99); MONOCYTES % (AUTO) 6.1 % (1.0-10.0); PLATELET COUNT 159 K/UL (150-450); RED BLOOD COUNT 2.91 M/UL (4.20-5.40); RED CELL DISTRIBUTION WIDTH 16.4 % (11.6-14.8); WHITE BLOOD COUNT 11.3 K/UL (4.8-10.8)
--- NOTE | 2019-07-06 04:50 | NUR ---
NURSE NOTES: Pt transfers from [facility] via hospital bed. Receive a report from MINOR Holder. Pt is awake and alert. No chest pain nor dyspnea noted. Breathing is even and non labored. LS clear. BS intact. No seizure movement noted. Side rails are covered for protection. Yellowish urine is patent via michelle catheter. Fluid reconnect to left hand 20G. Done checking belongings. Given unit orientation. Call light within reach. Will continue to monitor.
[2019-07-06 05:00] VITALS: BP 109/69
--- NOTE | 2019-07-06 05:00 | NUR ---
HAND-OFF: Transferred pt to room #319-2(3E) Report given to ANGELA RYDER.
[2019-07-06] MEDS ORDERED: Nitroglycerin Subl 0.4mg tab SL PRN (05:20)
[2019-07-06 05:27] LABS: ALANINE AMINOTRANSFERASE 11 U/L (12-78); ALBUMIN/GLOBULIN RATIO 0.8 (1.0-2.7); ALKALINE PHOSPHATASE 94 U/L (46-116); ANION GAP 9 mmol/L (5-15); ASPARTATE AMINO TRANSFERASE 15 U/L (15-37); BILIRUBIN,TOTAL 0.3 MG/DL (0.2-1.0); BLOOD UREA NITROGEN 43 mg/dL (7-18); CALCIUM 9.3 MG/DL (8.5-10.1); CARBON DIOXIDE 25 MMOL/L (21-32); CHLORIDE 107 MMOL/L (98-107); CREATININE 1.6 MG/DL (0.55-1.30); PHOSPHORUS 2.2 MG/DL (2.5-4.9); POTASSIUM 4.4 MMOL/L (3.5-5.1); SODIUM 141 MMOL/L (136-145)
[2019-07-06] MEDS ORDERED: dilTIAZem HCl 25mg/5ml Inj IV PRN (06:00)
[2019-07-06] MEDS ORDERED: Miralax 17gm pkt ORAL PRN (06:00)
[2019-07-06] MEDS ORDERED: HydrALAZINE 25mg tab ORAL PRN (06:00)
[2019-07-06] MEDS ORDERED: Albuterol/Ipratropium 3ml neb HHN PRN (07:00)
[2019-07-06 08:00] VITALS: BP 135/89
[2019-07-06] MEDS ORDERED: Docusate 100mg cap ORAL SCH (09:00)
[2019-07-06] MEDS ORDERED: Aspirin Baby 81mg ORAL SCH (09:00)
[2019-07-06] MEDS ORDERED: Magnesium Oxide 400mg tab ORAL SCH (09:00)
[2019-07-06] MEDS ORDERED: Carvedilol 12.5mg tab ORAL SCH (09:00)
[2019-07-06] MEDS ORDERED: Heparin 5000 units/ml inj SUBQ SCH (09:00)
[2019-07-06] MEDS ORDERED: Liothyronine 5mcg tab ORAL SCH ×2 (09:00)
--- NOTE | 2019-07-06 09:30 | NUR ---
NURSE NOTES: Removed Frausto and obtained 325ml of straw yellow urine from drainage bag. Instructed pt to notify me when she first voids in hat after F/C removal; pt verbalized understanding. Will continue to monitor.
--- NOTE | 2019-07-06 10:00 | NUR ---
NURSE NOTES: Patient is sitting on edge of bed. Stable. Denies pain or SOB. Patient instructed to use call light for assistance, verbalized understanding. Patient appears disheveled. Patient is in bed in locked and lowest position with call light within reach. All safety measures provided. Will continue to monitor.
--- NOTE | 2019-07-06 10:18 | Nephrology Progress Note ---
Assessment/Plan Problem List: (1) Hyponatremia (2) ROSIE (acute kidney injury) (3) Dehydration (4) Hypothyroidism (5) Seizure disorder (6) Gout (7) Bipolar 1 disorder Assessment Acute renal failure- Mainly dehydration - been on Lasix ? CKD underlying HypoNatremia ? depletional Anemia Metabolic encephalopathy CP , abnormal EKG Alcoholism Hypothyroid Sz disorder Bipolar Gout Plan OK to DC from renal stand DC Frausto- stop hydrate add cytomel monitor renal parameters LIZBETH kidney negative 2D echo pending keep BP in check per orders Subjective ROS Limited/Unobtainable: No Constitutional: Reports: other - wants to go home Objective Objective Last 24 Hour Vital Signs Date Time Temp Pulse Resp B/P (MAP) Pulse Ox O2 Delivery O2 Flow Rate FiO2 07/06/19 09:27 98 135/89 07/06/19 09:24 98 135/89 07/06/19 08:00 97.7 98 19 135/89 (104) 97 07/06/19 05:00 97.8 81 20 109/69 (82) 93 86 07/06/19 04:00 Room Air 07/06/19 04:00 98.4 81 20 125/81 (96) 93 07/06/19 04:00 80 07/06/19 00:00 98.0 80 20 114/68 (83) 100 07/06/19 00:00 Room Air 07/06/19 00:00 80 07/05/19 21:52 84 110/75 07/05/19 20:00 98.0 20 110/75 (87) 91 07/05/19 20:00 Room Air 07/05/19 20:00 86 07/05/19 16:00 97.6 20 134/60 (84) 100 07/05/19 16:00 87 07/05/19 15:41 Room Air 07/05/19 12:57 91 07/05/19 12:00 Room Air 07/05/19 12:00 98.0 88 20 119/75 (90) 100 Intake and Output 07/05/19 07/06/19 19:00 07:00 Intake Total 2150 ml Output Total 2775 ml Balance -625 ml Intake Oral 250 ml IV Total 1900 ml Output Urine Total 2775 ml Current Medications Medications (Trade) Dose Ordered Sig/Tadeo Route PRN Reason Start Time Stop Time Status Last Admin Dose Admin Acetaminophen (Tylenol) 650 mg Q4H PRN ORAL FEVER 07/06/19 06:00 08/02/19 05:59 Albuterol/ Ipratropium (Albuterol/ Ipratropium) 3 ml Q4H PRN HHN Shortness of Breath 07/06/19 07:00 07/08/19 18:59 Amlodipine Besylate (Norvasc) 2.5 mg DAILY ORAL 07/06/19 09:00 08/04/19 08:59 07/06/19 09:24 Aspirin (ASA) 162 mg DAILY ORAL 07/06/19 09:00 08/03/19 08:59 07/06/19 09:27 Atorvastatin Calcium (Lipitor) 80 mg BEDTIME ORAL 07/06/19 21:00 08/02/19 20:59 Carvedilol (Coreg) 12.5 mg EVERY 12 HOURS ORAL 07/06/19 09:00 08/02/19 20:59 07/06/19 09:27 Diltiazem HCl (Cardizem) 10 mg Q1H PRN IV heart rate more than 120, 07/06/19 06:00 08/02/19 18:59 Docusate Sodium (Colace) 100 mg TWICE A DAY ORAL 07/06/19 09:00 08/03/19 10:29 07/06/19 09:27 Fish Oil (Fish Oil) 1,000 mg BID ORAL 07/06/19 09:00 08/03/19 10:29 07/06/19 09:28 Folic Acid (Folate) 2 mg DAILY ORAL 07/06/19 09:00 08/04/19 11:29 07/06/19 09:24 Gabapentin (Neurontin) 300 mg THREE TIMES A DAY ORAL 07/06/19 09:00 08/03/19 08:59 07/06/19 09:26 Heparin Sodium (Porcine) (Heparin 5000 units/ml) 5,000 units EVERY 12 HOURS SUBQ 07/06/19 09:00 08/02/19 20:59 07/06/19 09:19 Hydralazine HCl (Apresoline) 25 mg Q4H PRN ORAL bp over 160 syst 07/06/19 06:00 08/03/19 05:59 Levetiracetam (Keppra) 500 mg Q12HR ORAL 07/06/19 09:00 08/02/19 20:59 07/06/19 09:27 Liothyronine Sodium (CytomeL) 5 mcg DAILY ORAL 07/06/19 09:00 08/05/19 08:59 07/06/19 09:25 Magnesium Oxide (Mag-Ox 400mg) 400 mg DAILY ORAL 07/06/19 09:00 08/04/19 08:59 07/06/19 09:25 Nitroglycerin (Ntg) 0.4 mg Q5M PRN SL Prn Chest Pain 07/06/19 05:20 08/02/19 18:59 Ondansetron HCl (Zofran) 4 mg Q6H PRN IVP Nausea & Vomiting 07/06/19 06:00 08/02/19 05:59 Ondansetron HCl (Zofran) 4 mg Q6H PRN ORAL Nausea & Vomiting 07/06/19 06:00 08/02/19 05:59 Pantoprazole (Protonix) 40 mg BID ORAL 07/06/19 09:00 08/03/19 10:29 07/06/19 09:28 Polyethylene Glycol (Miralax) 17 gm DAILYPRN PRN ORAL Constipation 07/06/19 06:00 08/02/19 05:59 Quetiapine Fumarate (SEROqueL) 50 mg Q12HR ORAL 07/06/19 09:00 08/03/19 20:59 07/06/19 09:26 Sodium Chloride 1,000 ml @ 100 mls/hr Q10H IV 07/06/19 05:15 08/04/19 11:29 Temazepam (Restoril) 15 mg HSPRN PRN ORAL Insomnia 07/06/19 19:00 07/10/19 18:59 Trazodone HCl (Desyrel) 100 mg BEDTIME ORAL 07/06/19 21:00 08/02/19 20:59 Laboratory Tests 07/06/19 03:25: White Blood Count 11.3H, Red Blood Count 2.91L, Hemoglobin 9.7L, Hematocrit 29.2L, Mean Corpuscular Volume 100H, Mean Corpuscular Hemoglobin 33.2H, Mean Corpuscular Hemoglobin Concent 33.2, Red Cell Distribution Width 16.4H, Platelet Count 159, Mean Platelet Volume 7.5, Neutrophils (%) (Auto) 59.0, Lymphocytes (%) (Auto) 31.5, Monocytes (%) (Auto) 6.1, Eosinophils (%) (Auto) 2.6, Basophils (%) (Auto) 0.8, Sodium Level 141, Potassium Level 4.4, Chloride Level 107, Carbon Dioxide Level 25, Anion Gap 9, Blood Urea Nitrogen 43H, Creatinine 1.6H, Estimat Glomerular Filtration Rate 41.7, Glucose Level 169H, Uric Acid 5.6, Calcium Level 9.3, Phosphorus Level 2.2L, Magnesium Level 2.2, Total Bilirubin 0.3, Aspartate Amino Transf (AST/SGOT) 15, Alanine Aminotransferase (ALT/SGPT) 11L, Alkaline Phosphatase 94, C-Reactive Protein, Quantitative 0.7, Pro-B-Type Natriuretic Peptide 268H, Total Protein 6.8, Albumin 3.0L, Globulin 3.8, Albumin/Globulin Ratio 0.8L Height (Feet): 5 Height (Inches): 4.00 Weight (Pounds): 158 General Appearance: no apparent distress Cardiovascular: normal rate Respiratory/Chest: lungs clear Abdomen: distended Barney Mckinney MD Jul 06, 2019 10:18
--- NOTE | 2019-07-06 11:00 | NUR ---
NURSE NOTES: Made rounds with Dr. Mckinney, Dr. Mckinney said ok to discharge home from nephro standpoint.
[2019-07-06 12:00] VITALS: BP 122/74
--- NOTE | 2019-07-06 15:44 | NUR ---
NURSE NOTES: Patient is leaving hospital AMA. Stable. Denies pain or SOB. Patient acknowledged that she is leaving against medical advice and is aware of risks and benefits. Dr. Gotti paged regarding patient's leaving AMA. Patient has all belongings. Skin is c/d/i. IV removed. Armband removed. [employer] shredder picker arranged. Awaiting shredder picker.
--- NOTE | 2019-07-06 15:48 | NUR ---
NURSE NOTES: Patient assisted downstairs by staff without incident. Patient stated that she has help available at home.
--- NOTE | 2019-07-06 16:42 | Internal Med Progress Note ---
Subjective Date of Service: Jul 06, 2019 Physician Name Paulo Gotti Attending Physician Saul Sorenson MD Allergies: Coded Allergies: No Known Allergies (Unverified , 11/07/17) ROS Limited/Unobtainable: No Constitutional: Reports: no symptoms HEENT: Reports: no symptoms Cardiovascular: Reports: chest pain Respiratory: Reports: no symptoms Gastrointestinal/Abdominal: Reports: no symptoms Genitourinary: Reports: no symptoms Neurologic/Psychiatric: Reports: no symptoms Subjective 49 YO F admitted with shortness of breath and chest pain. Cover for Int Med-DR Sorenson. Threatening to leave AMA Objective Last Vital Signs Date Time Temp Pulse Resp B/P (MAP) Pulse Ox O2 Delivery O2 Flow Rate FiO2 07/06/19 12:00 98.6 83 20 122/74 (90) 95 07/06/19 09:00 Room Air Laboratory Tests Test 07/06/19 03:25 White Blood Count 11.3 K/UL (4.8-10.8) H Red Blood Count 2.91 M/UL (4.20-5.40) L Hemoglobin 9.7 G/DL (12.0-16.0) L Hematocrit 29.2 % (37.0-47.0) L Mean Corpuscular Volume 100 FL (80-99) H Mean Corpuscular Hemoglobin 33.2 PG (27.0-31.0) H Mean Corpuscular Hemoglobin Concent 33.2 G/DL (32.0-36.0) Red Cell Distribution Width 16.4 % (11.6-14.8) H Platelet Count 159 K/UL (150-450) Mean Platelet Volume 7.5 FL (6.5-10.1) Neutrophils (%) (Auto) 59.0 % (45.0-75.0) Lymphocytes (%) (Auto) 31.5 % (20.0-45.0) Monocytes (%) (Auto) 6.1 % (1.0-10.0) Eosinophils (%) (Auto) 2.6 % (0.0-3.0) Basophils (%) (Auto) 0.8 % (0.0-2.0) Sodium Level 141 MMOL/L (136-145) Potassium Level 4.4 MMOL/L (3.5-5.1) Chloride Level 107 MMOL/L (98-107) Carbon Dioxide Level 25 MMOL/L (21-32) Anion Gap 9 mmol/L (5-15) Blood Urea Nitrogen 43 mg/dL (7-18) H Creatinine 1.6 MG/DL (0.55-1.30) H Estimat Glomerular Filtration Rate 41.7 mL/min (>60) Glucose Level 169 MG/DL (74-106) H Uric Acid 5.6 MG/DL (2.6-7.2) Calcium Level 9.3 MG/DL (8.5-10.1) Phosphorus Level 2.2 MG/DL (2.5-4.9) L Magnesium Level 2.2 MG/DL (1.8-2.4) Total Bilirubin 0.3 MG/DL (0.2-1.0) Aspartate Amino Transf (AST/SGOT) 15 U/L (15-37) Alanine Aminotransferase (ALT/SGPT) 11 U/L (12-78) L Alkaline Phosphatase 94 U/L (46-116) C-Reactive Protein, Quantitative 0.7 mg/dL (0.00-0.90) Pro-B-Type Natriuretic Peptide 268 pg/mL (0-125) H Total Protein 6.8 G/DL (6.4-8.2) Albumin 3.0 G/DL (3.4-5.0) L Globulin 3.8 g/dL Albumin/Globulin Ratio 0.8 (1.0-2.7) L Intake and Output 07/05/19 07/06/19 19:00 07:00 Intake Total 2150 ml Output Total 2775 ml Balance -625 ml Intake Oral 250 ml IV Total 1900 ml Output Urine Total 2775 ml Objective PHYSICAL EXAMINATION: GENERAL: The patient awake, responsive, no acute distress. HEAD AND NECK: Pupils are equal and reactive to light. Extraocular movements intact. Neck was supple. Positive JVD. LUNGS: Good air entry. No wheezing or rhonchi. Decreased air in the bases. HEART: S1, S2. Distant heart sounds. No murmurs or gallops. ABDOMEN: Soft, nondistended, nontender. Positive bowel sounds. Mild obesity. EXTREMITIES: No cyanosis, clubbing, or edema. NEUROLOGIC: Cranial nerves II through XII. Moves all 4 extremities. Gait was not assessed due to the patient's status. RECTAL/GENITOURINARY: Refused and deferred. Assessment/Plan Assessment/Plan ASSESSMENT: 1. Severe hyponatremia. 2. Atypical chest pain. 3. Shortness of breath. 4. Seizure disorder. 5. Bipolar disorder. 6. Hypothyroidism. 7. Gout. 8. Tobacco abuse. 9. Alcoholism. 10. Shortness of air, most likely secondary to fluid overload. PLAN: Admit the patient to [facility]. We will follow up with Dr. Wright from Pulmonary Critical Care and Dr. Mckinney from Nephrology. Monitor sodium level closely. Code status is Full Code. Start the patient on 3% sodium chloride and nebulizer treatment. We will resume home medication. Follow up with the neuro check. Patient left AGAINST MEDICAL ADVISE Paulo Gotti MD Jul 06, 2019 16:42
[2019-07-06] MEDS ORDERED: Atorvastatin 80mg tab ORAL SCH (21:00)
[2019-07-06] MEDS ORDERED: TraZODone 100mg tab ORAL SCH (21:00)
--- NOTE | 2019-07-08 10:40 | Discharge Summary ---
Discharge Summary Discharge Summary _ DATE OF ADMISSION: 07/03/2019 DATE OF DISCHARGE: 07/06/2019 Patient left AGAINST MEDICAL ADVICE REASON FOR ADMISSION: 49 years old female with past medical history of hypertension, congestive heart failure, dyslipidemia, gout, hypothyroidism, chronic alcoholism, bipolar disorder type I, presented to emergency department complaining of chest pain and shortness of breath for the past 3 days. Patient denied cough or chest congestion. She denied fever and chills. No nausea or vomiting. Shortly after initial evaluation in emergency department , patient was found to have sodium 117. BUN 73, creatinine 3.4. Troponin negative. EKG revealed sinus rhythm with flipped T waves in inferior and lateral leads. Urine toxicology screen negative. Urinalysis negative . No leukocytosis, stable hemoglobin and hematocrit. Chest x-ray revealed cardiomegaly , no acute process otherwise . Patient admitted for further management. CONSULTANTS: pulmonary/critical care Dr. Wright wool hat flanger Dr. Mckinney [facility]: Patient admitted to [facility]. Day Care Director and child support specialist closely followed. Renal ultrasound was negative with normal bilateral kidney echogenicity. No hydronephrosis. Renal parameters and electrolytes were closely monitored. Urine studies were done. Acute renal failure and hyponatremia were likely due to dehydration, since patient was on Lasix at home. Patient possibly have underlying chronic kidney disease. Hyponatremia was depletional. Prior to signing AMA sodium 141. BUN from 73 down to 43 , creatinine from 3.4 down to 1.6. Echocardiogram was ordered due to abnormal EKG. TSH and free T4 within normal limits , and free T3 low. Cytomel was added to Synthroid. Seizure precaution maintained. Keppra continued. No evidence of seizure activity while in the hospital. DVT prophylaxis provided. Blood pressure was managed with current antihypertensive medication regimen. Antiplatelet therapy with aspirin and statin continued. GI prophylaxis provided. Magnesium was replaced, and stabilized - 2.2. Anemia work-up revealed low folate . Patient started on folic acid replacement . hemoglobin and hematocrit trended down . Prior to signing AMA hemoglobin 9.7, hematocrit 29.2. Supplemental oxygen was on board as needed to keep oximetry above 90% along with bronchodilator treatment. Pulse oximetry was stable on room air. Chest pain resolved. Patient felt better. Sodium stabilized. Patient decided to sign AGAINST MEDICAL ADVICE. The risks and consequences of signing AGAINST MEDICAL ADVICE were discussed with patient in detail. Patient verbalized understanding, nevertheless signed AMA form and left. FINAL DIAGNOSES: Severe hyponatremia , depletional - resolved Acute kidney injury on possible underlying chronic kidney disease Dehydration Atypical chest pain Seizure disorder Bipolar disorder Abnormal EKG Anemia Metabolic encephalopathy Seizure disorder Hypothyroidism Gout Tobacco abuse Alcoholism I have been assigned to dictate discharge summary for this account. ] I was not involved in the patient's management. Margarita Manzo NP Jul 08, 2019 10:40
--- NOTE | 2019-07-09 15:16 | NUR ---
*-* INSURANCE *-* ALLCLINICALS AND REVOEWS HAVE BEEN FAXED TO"[facility] [phone] SPOKE TO: [employer] AUTH# [id number] AUTH IS ONLY APPROVED FOR 1 DAY SEND CLINICALS FAX CLINICALS AND DISCHARGE TO [phone]
== END 2019-07-06 15:45 | disposition left against medical advice (07) | DRG 426 ==
LOC: EDBD 16:05 → EMR 16:20 → EDBEDREQ 17:13 → EDBEDREQSVC 17:13 → EDBEDREQ 17:19 → 2W 17:37 → EDBEDREQ 18:15 → 2W 21:09 → 3E 07-06 05:01
DX: E87.1 Hypo-osmolality and hyponatremia (principal); E78.5 Hyperlipidemia, unspecified; I50.9 Heart failure, unspecified; F10.20 Alcohol dependence, uncomplicated; F31.9 Bipolar disorder, unspecified; M10.9 Gout, unspecified; E03.9 Hypothyroidism, unspecified; R07.89 Other chest pain; N17.9 Acute kidney failure, unspecified; I13.0 Hypertensive heart and chronic kidney disease with heart failure and stage 1 through stage 4 chronic kidney disease, or unspecified chronic kidney disease; E86.0 Dehydration; N18.9 Chronic kidney disease, unspecified; G40.909 Epilepsy, unspecified, not intractable, without status epilepticus; G93.41 Metabolic encephalopathy; F17.200 Nicotine dependence, unspecified, uncomplicated; D64.9 Anemia, unspecified; E87.70 Fluid overload, unspecified
CPT/HCPCS: 36415; 71045; 76770; 80053; 80061; 80299; 80307; 81001; 82140; 82248; 82533; 82607; 82728; 82746; 82977; 83036; 83540; 83550; 83690; 83735; 83880; 83930; 84100; 84300; 84439; 84443; 84481; 84484; 84550; 85025; 85610; 85730; 86140; 93005; 96374; 96375; 99291; J2405; J7030

== ENCOUNTER 2020-04-22 10:17 | Inpatient (IN) | payer OTHER ==
[~2020-04-22] VITALS: Ht 162.6 cm; Wt 72.6 kg
[~2020-04-22 10:17] MED LIST changes: +NAPROXEN250 MG ORAL
--- NOTE | 2020-04-22 10:50 | NUR ---
ED Nurse Note: PT arrived by ambulance. EMS states that she has a co of weakness. SHe is Alert only to self. SHe has rambling tangental speach. SHe arrived on a NRB at 10 L. able to titrate down to NC 2L SPO2 98%. She is very confused and is trying to get out of bed and is yelling saying that she wants to go home and that she wants a diffrent room. Multiple attempt needed to re-orient the pt. She has swelling around both of her eyes. Labs, ekg sent. vital signs stable as documented.
[2020-04-22] MEDS ORDERED: Thiamine HCl 100 MG in D5W 55 ML IVPB ONE (11:30)
[2020-04-22 12:06] LABS: APPEARANCE,URINE CLEAR; BILIRUBIN, URINE NEGATIVE (NEGATIVE); COLOR,URINE PALE YELLOW; GLUCOSE, URINE (UA) NEGATIVE (NEGATIVE); KETONES,URINE 2+ (NEGATIVE); LEUKOCYTE ESTERASE ,URINE NEGATIVE (NEGATIVE); NITRITE,URINE NEGATIVE (NEGATIVE); PH,URINE 7 (4.5-8.0); PROTEIN,URINE NEGATIVE (NEGATIVE); UROBILINOGEN,URINE 1 MG/DL (0.0-1.0)
[2020-04-22 12:07] LABS: BASOPHILS % (AUTO) 1.5 % (0.0-2.0); EOSINOPHILS % (AUTO) 0.4 % (0.0-3.0); HEMATOCRIT 39.5 % (37.0-47.0); HEMOGLOBIN 12.7 G/DL (12.0-16.0); LYMPHOCYTES % (AUTO) 11.5 % (20.0-45.0); MEAN CORPUSCULAR VOLUME 110 FL (80-99); MONOCYTES % (AUTO) 5.8 % (1.0-10.0); NEUTROPHILS % (AUTO) 80.8 % (45.0-75.0); PLATELET COUNT 170 K/UL (150-450); RED CELL DISTRIBUTION WIDTH 19.3 % (11.6-14.8); WHITE BLOOD COUNT 10.1 K/UL (4.8-10.8)
[2020-04-22 12:16] LABS: INR 1.2 (0.9-1.1)
[2020-04-22 12:17] LABS: ANION GAP 7 mmol/L (5-15); BLOOD UREA NITROGEN 14 mg/dL (7-18); CALCIUM 9.1 MG/DL (8.5-10.1); CARBON DIOXIDE 34 MMOL/L (21-32); CHLORIDE 102 MMOL/L (98-107); POTASSIUM 3.4 MMOL/L (3.5-5.1); SODIUM 143 MMOL/L (136-145)
[2020-04-22 12:19] LABS: AMMONIA 31 umol/L (11-32)
[2020-04-22 12:29] LABS: ALANINE AMINOTRANSFERASE 23 U/L (12-78); ALBUMIN 3.5 G/DL (3.4-5.0); ALBUMIN/GLOBULIN RATIO 0.8 (1.0-2.7); ALKALINE PHOSPHATASE 159 U/L (46-116); ASPARTATE AMINO TRANSFERASE 31 U/L (15-37)
--- NOTE | 2020-04-22 13:31 | Diagnostic Imaging Report ---
Indications: Altered mental status Technique: Spiral acquisitions obtained through the brain. Angled axial and coronal 5 x 5 mm slices were reconstructed. Total dose length product 1045 mGycm. CTDI vol(s) 53 mGy. Dose reduction achieved using automated exposure control Comparison: 11/07/2017 Findings: There is again demonstrated is enlargement of the ventricles and extra axial CSF spaces, out of proportion to patient's age. There are bilateral basal ganglia lacunar infarcts, new since the prior exam but appearing old. There is periventricular deep white matter low attenuation, consistent with chronic microvascular ischemic change. No acute intracranial hemorrhage or edema mass effect or midline shift. Intact calvarium. Visualized orbits and sinuses are unremarkable. The mastoids are clear. Impression: Chronic and age-related changes Negative for acute intracranial bleed, mass effect Old bilateral basal ganglia lacunar infarcts, which are new findings since 11/07/2017. These do appear acute The CT scanner at [facility] is accredited by the [employer] and the scans are performed using protocols designed to limit radiation exposure to as low as reasonably achievable to attain images of sufficient resolution adequate for diagnostic evaluation.
--- NOTE | 2020-04-22 14:07 | Diagnostic Imaging Report ---
Indication: Shortness of breath Technique: One view of the chest Comparison: 07/03/2019 Findings: Heart is enlarged. There is mild pulmonary venous congestion. No focal airspace consolidation. The pleural spaces are clear Impression: Cardiomegaly. Mild pulmonary venous congestion.
[2020-04-22 14:30] VITALS: BP 141/75
--- NOTE | 2020-04-22 14:32 | NUR ---
Note cami in EDM - 04/22/20 at 1437 by [facility] ED Nurse Note: PT arrived by ambulance. EMS states that she has a co of weakness. SHe is Alert only to self. SHe has rambling tangental speach. SHe arrived on a NRB at 10 L. able to titrate down to NC 2L SPO2 98%. She is very confused and is trying to get out of bed and is yelling saying that she wants to go home and that she wants a diffrent room. Multiple attempt needed to re-orient the pt. She has swelling around both of her eyes. Labs, ekg sent. vital signs stable as documetned.
--- NOTE | 2020-04-22 14:37 | NUR ---
ED Nurse Note: pt is very confused, multiple times trying to get out of bed, pulled out her IV line, taking off her NC, yelling for anyone who walks by for help, she was able to use the commode and had thick dark mucus in stool.
--- NOTE | 2020-04-22 14:41 | NUR ---
ED Nurse Note: Pt unable to provide the name of her home meds.
[2020-04-22] MEDS ORDERED: LORazepam Inj 2mg/ml 1ml IV ONE (15:00)
--- NOTE | 2020-04-22 15:22 | NUR ---
ED Nurse Note: report given to ANGELA Mendieta on 2E
--- NOTE | 2020-04-22 15:50 | NUR ---
ED Nurse Note: Pt transferred safely to 2E on the monitor safely. Belongings verified.
[2020-04-22 16:00] VITALS: BP 105/65
--- NOTE | 2020-04-22 17:14 | NUR ---
ED Nurse Note: Spoke with patient's doctor's office. Pt's PMD is Dr. Neil.
--- NOTE | 2020-04-22 17:32 | NUR ---
NURSE NOTES: Left message with Dr. Saul Sorenson requesting admission orders, notified that Dr. Carly Neil from [facility] and knows that patient said the patient called her and is very altered, she mentioned that the patient could possibly have Wernekes Encephalopathy.
--- NOTE | 2020-04-22 18:03 | NUR ---
NURSE NOTES: Reported patient sinus stephanie, HR41. No new orders.
--- NOTE | 2020-04-22 19:35 | NUR ---
NURSE NOTES: Pt received from ANGELA Mendieta. Pt is resting comfortably in bed and denies any pain. Pt is on bedrest due to generalized weakness; pt is aware to self and place with confusion. Pt is on cardiac monitoring SB and asymptomatic. Pt is on NC 3LPM breathing unlabored. Pt needs new IV. Bed is locked in lowest position with call light within reach. Will continue to monitor.
[2020-04-22 20:00] VITALS: BP 153/86
--- NOTE | 2020-04-22 20:06 | NUR ---
HAND-OFF: Report given to Lan Maher RN. Patient sitting up in bed, awake and confused, on 3 liters nasal cannula, feet and hands are cold, bilateral pulses week, side rails up x 3, padded side rails for seizure precautions, nausea treated with Zofran, bed in lowest position, call light within reach.
[2020-04-22] MEDS: Heparin 5000 units/ml inj SUBQ SCH (21:00)
[2020-04-22] MEDS: Thiamine HCl 100 MG in D5W 55 ML IVPB SCH (21:00)
[2020-04-22] MEDS: Carvedilol 12.5mg tab ORAL SCH (21:00)
[2020-04-22] MEDS: TraZODone 100mg tab ORAL SCH (21:00)
[2020-04-23] VITALS: BP 167/106
[2020-04-23] MEDS: LORazepam Inj 2mg/ml 1ml IV PRN ×2 (01:38→08:29)
[2020-04-23 04:00] VITALS: BP 153/79
[2020-04-23 07:03] LABS: BASOPHILS % (AUTO) 5.6 % (0.0-2.0); EOSINOPHILS % (AUTO) 0.2 % (0.0-3.0); HEMATOCRIT 38.3 % (37.0-47.0); HEMOGLOBIN 12.6 G/DL (12.0-16.0); LYMPHOCYTES % (AUTO) 9.8 % (20.0-45.0); MEAN CORPUSCULAR VOLUME 106 FL (80-99); MONOCYTES % (AUTO) 10.9 % (1.0-10.0); NEUTROPHILS % (AUTO) 73.5 % (45.0-75.0); PLATELET COUNT 175 K/UL (150-450); RED BLOOD COUNT 3.61 M/UL (4.20-5.40); RED CELL DISTRIBUTION WIDTH 19.9 % (11.6-14.8)
--- NOTE | 2020-04-23 07:09 | NUR ---
CASE MANAGEMENT:REVIEW 50 YR OLD FEMALE BIBA FROM HOME CC: GENERALIZED WEAKNESS X2 DAYS. APPEARS VERY CONFUSED. SWELLING AROUND BOTH EYES SI:EPISODE OF GENERALIZED WEAKNESS 98.9 83 16 162/84 96% ON 2L/NC K-3.4 GLUCOSE+129 BNP+7645 URINE TOX(-) IS: IV THIAMINE IV LASIX KCL PO BLOOD CX URIEN CX CT HEAD : TO TELEMETRY PLAN: 2DECHO CXR SEIZURE PRECAUTIONS NEURO CHECKS Q4
[2020-04-23 07:16] LABS: AMMONIA 16 umol/L (11-32)
[2020-04-23 07:20] LABS: ANION GAP 8 mmol/L (5-15); BLOOD UREA NITROGEN 9 mg/dL (7-18); CALCIUM 9.8 MG/DL (8.5-10.1); CARBON DIOXIDE 38 MMOL/L (21-32); CHLORIDE 100 MMOL/L (98-107); CREATININE 0.9 MG/DL (0.55-1.30); PHOSPHORUS 1.5 MG/DL (2.5-4.9); POTASSIUM 3.2 MMOL/L (3.5-5.1); SODIUM 145 MMOL/L (136-145)
--- NOTE | 2020-04-23 07:25 | NUR ---
NURSE HAND-OFF REPORT: Important Events on Shift:Pt admitted to tele. Pt denies pain or SOB Patient Status: Stable Diet: Regular diet Pending Orders: Pending Results/Labs:AM Labs Pending MD notification: Latest Vital Signs: Temperature 98.0 , Pulse 64 , B/P 153 /79 , Respiratory Rate 18 , O2 SAT 99 , Nasal Cannula, O2 Flow Rate 3.0 . Vital Sign Comment: VSS EKG Rhythm: Sinus Rhythm Rhythm change?: N MD Notified?: - MD Response: Latest Moreno Fall Score: 60 Fall Risk: High Risk Safety Measures: Call light Within Reach, Bed Alarm Zone 1, Side Rails Side Rails x2, Bed position Low and Locked. Fall Precautions: Yellow Socks Yellow Gown Patient Fall Education Report given to ANGELA Biswas.
--- NOTE | 2020-04-23 07:39 | NUR ---
NURSE NOTES: Report was given from ANGELA Maher. The patient was seen in bed stable and in no acute signs of distress. The patients bed was placed in the lowest position and locked, bed alarm is placed in zone 1, side rails are utilized x3, and call light within reach.
[2020-04-23 08:00] VITALS: BP 146/68
[2020-04-23] MEDS: Heparin 5000 units/ml inj SUBQ SCH ×2 (08:33→22:00)
[2020-04-23] MEDS: Carvedilol 12.5mg tab ORAL SCH ×2 (08:35→21:57)
[2020-04-23 11:48] VITALS: BP 144/82
--- NOTE | 2020-04-23 11:52 | Consultation ---
History of Present Illness General Date patient seen: Apr 23, 2020 Chief Complaint: Generalized Weakness Present Illness HPI 50-year-old female history of hypertension, CHF, DM, seizure disorder, ETOH abused presented to ER with CC of ALOC, generalized weakness and confusion. she denies any fevers or chills no cough or congestion. She is admitted for further management. Allergies: Coded Allergies: No Known Allergies (Unverified , 11/07/17) Medication History Scheduled Albuterol Sulfate (Ventolin Hfa), 1 PUFF INH EVERY 6 HOURS, (Reported) Allopurinol* (Allopurinol*), 300 MG ORAL DAILY, (Reported) Amlodipine Besylate (Norvasc), 5 MG ORAL DAILY Atorvastatin (Lipitor), 80 MG ORAL BEDTIME Carvedilol (Coreg), 12.5 MG ORAL EVERY 12 HOURS Furosemide* (Lasix*), 40 MG ORAL DAILY Gabapentin* (Gabapentin*), 300 MG ORAL THREE TIMES A DAY, (Reported) Levetiracetam* (Levetiracetam*), 500 MG ORAL TWICE A DAY, (Reported) Lorazepam* (Lorazepam*), 0.5 MG ORAL TID, (Reported) Omeprazole (Omeprazole), 40 MG ORAL DAILY, (Reported) Trazodone Hcl* (Desyrel*), 100 MG ORAL BEDTIME, (Reported) Scheduled PRN Naproxen* (Naprosyn*), 250 MG ORAL TID PRN for For Pain, (Reported) Ondansetron* (Zofran*), 4 MG ORAL Q6H PRN for Nausea & Vomiting, (Reported) Tramadol Hcl* (Ultram*), 50 MG ORAL BID PRN for For Pain, (Reported) Miscellaneous Medications Naltrexone Microspheres (Vivitrol), 380 MG IM, (Reported) Patient History Healthcare decision maker Resuscitation status Advanced Directive on File Past Medical/Surgical History Past Medical/Surgical History: (1) Diabetes mellitus (2) Congestive heart failure (3) Bipolar 1 disorder (4) Seizure disorder (5) Hypothyroidism (6) Alcoholism (7) Gout (8) Diastolic CHF Review of Systems All Other Systems: negative except mentioned in HPI Physical Exam General Appearance: WD/WN Lines, tubes and drains: peripheral HEENT: normocephalic, atraumatic Neck: non-tender, normal alignment Respiratory/Chest: chest wall non-tender, lungs clear Cardiovascular/Chest: normal peripheral pulses, normal rate Abdomen: normal bowel sounds, non tender Genitourinary/Rectal: normal rectal exam Extremities: normal range of motion Last 24 Hour Vital Signs Date Time Temp Pulse Resp B/P (MAP) Pulse Ox O2 Delivery O2 Flow Rate FiO2 04/23/20 10:11 Nasal Cannula 3.0 04/23/20 08:59 64 20 153/79 99 04/23/20 08:35 64 153/79 04/23/20 08:29 64 20 153/79 99 04/23/20 08:27 56 146/63 04/23/20 08:00 98.2 62 19 146/68 (94) 99 04/23/20 08:00 60 04/23/20 04:00 64 04/23/20 04:00 98.0 64 18 153/79 (103) 99 04/23/20 02:08 79 18 158/96 95 04/23/20 01:38 82 18 167/106 96 04/23/20 00:00 67 04/23/20 00:00 99.7 82 18 167/106 (126) 98 04/22/20 21:00 Nasal Cannula 3.0 04/22/20 21:00 63 153/86 04/22/20 20:00 99.2 63 18 153/86 (108) 94 04/22/20 20:00 63 04/22/20 17:07 Nasal Cannula 3.0 04/22/20 16:00 97.0 96 20 105/65 (78) 96 04/22/20 15:50 98.7 61 18 144/68 99 Nasal Cannula 2.0 61 04/22/20 15:35 71 18 127/74 93 04/22/20 15:05 63 20 134/82 94 04/22/20 14:30 97.2 67 20 141/75 93 Nasal Cannula 2.0 Intake and Output 04/22/20 04/23/20 19:00 07:00 Intake Total 480 ml Output Total 500 ml 1300 ml Balance -500 ml -820 ml Intake Oral 480 ml Output Urine Total 500 ml 1300 ml # Bowel Movements 3 7 Laboratory Tests Test 04/22/20 11:40 04/23/20 05:54 Urine Color Pale yellow Urine Appearance Clear Urine pH 7 (4.5-8.0) Urine Specific [place] 1.005 (1.005-1.035) Urine Protein Negative (NEGATIVE) Urine Glucose (UA) Negative (NEGATIVE) Urine Ketones 2+ (NEGATIVE) H Urine Blood Negative (NEGATIVE) Urine Nitrite Negative (NEGATIVE) Urine Bilirubin Negative (NEGATIVE) Urine Urobilinogen 1 MG/DL (0.0-1.0) H Urine Leukocyte Esterase Negative (NEGATIVE) Urine RBC 0 /HPF (0 - 2) Urine WBC 0-2 /HPF (0 - 2) Urine Squamous Epithelial Cells Few /LPF (NONE/OCC) Urine Bacteria Occasional /HPF (NONE) Urine Opiates Screen Negative (NEGATIVE) Urine Barbiturates Screen Negative (NEGATIVE) Phencyclidine (PCP) Screen Negative (NEGATIVE) Urine Amphetamines Screen Negative (NEGATIVE) Urine Benzodiazepines Screen Negative (NEGATIVE) Urine Cocaine Screen Negative (NEGATIVE) Urine Marijuana (THC) Screen Negative (NEGATIVE) White Blood Count 9.0 K/UL (4.8-10.8) Red Blood Count 3.61 M/UL (4.20-5.40) L Hemoglobin 12.6 G/DL (12.0-16.0) Hematocrit 38.3 % (37.0-47.0) Mean Corpuscular Volume 106 FL (80-99) H Mean Corpuscular Hemoglobin 35.0 PG (27.0-31.0) H Mean Corpuscular Hemoglobin Concent 32.9 G/DL (32.0-36.0) Red Cell Distribution Width 19.9 % (11.6-14.8) H Platelet Count 175 K/UL (150-450) Mean Platelet Volume 7.4 FL (6.5-10.1) Neutrophils (%) (Auto) 73.5 % (45.0-75.0) Lymphocytes (%) (Auto) 9.8 % (20.0-45.0) L Monocytes (%) (Auto) 10.9 % (1.0-10.0) H Eosinophils (%) (Auto) 0.2 % (0.0-3.0) Basophils (%) (Auto) 5.6 % (0.0-2.0) H Sodium Level 145 MMOL/L (136-145) Potassium Level 3.2 MMOL/L (3.5-5.1) L Chloride Level 100 MMOL/L (98-107) Carbon Dioxide Level 38 MMOL/L (21-32) H Anion Gap 8 mmol/L (5-15) Blood Urea Nitrogen 9 mg/dL (7-18) Creatinine 0.9 MG/DL (0.55-1.30) Estimat Glomerular Filtration Rate > 60 mL/min (>60) Glucose Level 125 MG/DL (74-106) H Lactic Acid Level 1.20 mmol/L (0.4-2.0) Calcium Level 9.8 MG/DL (8.5-10.1) Phosphorus Level 1.5 MG/DL (2.5-4.9) L Magnesium Level 1.1 MG/DL (1.8-2.4) L Ammonia 16 umol/L (11-32) Troponin I 0.016 ng/mL (0.000-0.056) Vitamin B12 Level 881 PG/ML (193-986) Vitamin D 25-Hydroxy Pending 25-Hydroxy Vitamin D2 Pending 25-Hydroxy Vitamin D3 Pending Height (Feet): 5 Height (Inches): 4.00 Weight (Pounds): 160 Medications Current Medications Medications (Trade) Dose Ordered Sig/Tadeo Route PRN Reason Start Time Stop Time Status Last Admin Dose Admin Acetaminophen (Tylenol) 650 mg Q6H PRN ORAL Temp >100.5 04/22/20 18:30 05/22/20 18:29 Allopurinol (allopurinoL) 300 mg DAILY ORAL 04/23/20 09:00 05/23/20 08:59 04/23/20 08:28 Amlodipine Besylate (Norvasc) 5 mg DAILY ORAL 04/23/20 09:00 05/23/20 08:59 04/23/20 08:27 Carvedilol (Coreg) 12.5 mg EVERY 12 HOURS ORAL 04/22/20 21:00 05/22/20 20:59 04/23/20 08:35 Folic Acid (Folate) 1 mg DAILY ORAL 04/23/20 09:00 05/23/20 08:59 04/23/20 08:28 Furosemide (Lasix) 40 mg EVERY 8 HOURS IV 04/23/20 11:45 05/23/20 08:59 UNV Gabapentin (Neurontin) 300 mg THREE TIMES A DAY ORAL 04/22/20 18:30 05/22/20 18:29 04/23/20 08:27 Heparin Sodium (Porcine) (Heparin 5000 units/ml) 5,000 units EVERY 12 HOURS SUBQ 04/22/20 21:00 06/06/20 20:59 04/23/20 08:33 Levetiracetam (Keppra) 500 mg Q12HR ORAL 04/22/20 21:00 06/06/20 20:59 04/23/20 08:27 Lorazepam (Ativan 2mg/ml 1ml) 0.5 mg Q6H PRN IV Withdrawal 04/22/20 18:30 04/29/20 18:29 04/23/20 08:29 Ondansetron HCl (Zofran) 4 mg Q4H PRN IVP Nausea & Vomiting 04/22/20 18:30 05/22/20 18:29 04/22/20 19:14 Thiamine HCl 100 mg/Dextrose 56 ml @ 112 mls/hr Q24H IVPB 04/22/20 21:00 05/22/20 20:59 04/22/20 21:00 Trazodone HCl (Desyrel) 100 mg BEDTIME ORAL 04/22/20 21:00 05/22/20 20:59 04/22/20 21:00 Assessment/Plan Problem List: (1) Episode of generalized weakness ICD Codes: R53.1 - Weakness SNOMED: 93532646 (2) Diastolic CHF ICD Codes: I50.30 - Unspecified diastolic (congestive) heart failure SNOMED: 62749450, 763914243 (3) Hypothyroidism ICD Codes: E03.9 - Hypothyroidism, unspecified SNOMED: 26416805 (4) Seizure disorder ICD Codes: G40.909 - Epilepsy, unspecified, not intractable, without status epilepticus SNOMED: 575639969 (5) Gout ICD Codes: M10.9 - Gout, unspecified SNOMED: 03377071 (6) Diabetes mellitus ICD Codes: E11.9 - Type 2 diabetes mellitus without complications SNOMED: 83742723 (7) Alcoholism ICD Codes: F10.20 - Alcohol dependence, uncomplicated SNOMED: 9809092 (8) Bipolar 1 disorder ICD Codes: F31.9 - Bipolar disorder, unspecified SNOMED: 177125157 Assessment/Plan: neuro evaluation cardiac evaluation PT/OT diuresis Echocardiogram seizure precaution Fiona Wright MD Apr 23, 2020 11:52
--- NOTE | 2020-04-23 12:08 | NUR ---
NURSE NOTES: Patient observed walking out of bed and out of room with unsteady gait. Unable to orient patient. Patient states she has to urinate despite f/c in place draining yellow urine. Patient refuses to sit in bed, patient refuses to sit in chair in room, refuses to use bedside commode and toilet. IV pulled out by patient with blood on left wrist, heart monitor removed by patient. Patient states "its my birthday republican, the doctor told me I could leave today." Patient refuses to use call light for help. Patient brought back to bed with second RN, gown and bed sheets changed. Patient oriented to place, time, and purpose. Order received to restraint patient with bilateral soft wrist.
[2020-04-23] MEDS: Haloperidol 5mg/ml Inj IM PRN (12:14)
--- NOTE | 2020-04-23 12:18 | NUR ---
NURSE NOTES: Haldol IM given for agitation. Patient shouting "HEY! COME HERE, THE DOCTOR SAID I CAN LEAVE TODAY. CALL THE DOCTOR." Patient removing nasal cannula and removed f/c drainage tube from f/c. Patient sliding out of bed and says she needs to walk around.
--- NOTE | 2020-04-23 14:26 | NUR ---
NURSE NOTES: Dr Wright contacted for potassium level 3.2. New order received for KCl 40 meq PO once.
[2020-04-23] MEDS ORDERED: Sodium Phosphate 30 MM in NS 275 ML IV ONE (15:00)
[2020-04-23 16:00] VITALS: BP 145/92
--- NOTE | 2020-04-23 16:45 | Diagnostic Imaging Report ---
Indication: Shortness of breath Technique: One view of the chest Comparison: 04/22/2020 Findings: Heart is enlarged. There is mild pulmonary venous congestion, appearing similar in extent to the previous study. The pleural spaces are clear. No focal airspace consolidation. Impression: Unchanged, over one day, findings as above.
[2020-04-23] MEDS: NovoLOG Insulin Flexpen SUBQ SCH ×2 (16:53→21:00)
--- NOTE | 2020-04-23 16:56 | NUR ---
NURSE NOTES: Patient shouting saying "I can sew you guys." Patient assessed for orientation status. Patient states full name and . Patient repeatedly states "we are at [facility]" after RN states this is Carlyle multiple times, patient states "this is not Sarah." Patient states "it is april 23, 5pm." Patietn unable to recall diagnosis or situation or events prior to hospital admission. Patient reoriented to situation. patient states "I do not need medication. Take the Iv off, take these off. The doctor said i can go home and my can take care of me."
--- NOTE | 2020-04-23 17:54 | NUR ---
NURSE NOTES: Dr Salomon notified of heart rate 38 and episodes of PACs. New order for EKG 04/24 carried out.
--- NOTE | 2020-04-23 19:10 | NUR ---
NURSE HAND-OFF REPORT: Important Events on Shift:[2D echo, Neuro checks, Unsteady gait per PT evaluation, sinus stephanie episode] Patient Status: [Stable, aaox2, full code] Diet: [CCHO diet] Pending Orders: [N/A] Pending Results/Labs:[N/A] Pending MD notification:[N/A] Latest Vital Signs: Temperature 99.6 , Pulse 60 , B/P 145 /92 , Respiratory Rate 18 , O2 SAT 96 , Nasal Cannula, O2 Flow Rate 3.0 . Vital Sign Comment: [] EKG Rhythm: Afib to Sinus Rhythm Rhythm change?: Donnie ANDREA Notified?: Donnie Engel MD Response: Order Received& Read Back Latest Moreno Fall Score: 60 Fall Risk: High Risk Safety Measures: Call light Within Reach, Bed Alarm Zone 1, Side Rails Side Rails x2, Bed position Low and Locked. Fall Precautions: Yellow Socks Yellow Gown Patient Fall Education Report given to [ANGELA Castaneda].
[2020-04-23 20:00] VITALS: BP 148/90
--- NOTE | 2020-04-23 20:27 | NUR ---
NURSE NOTES: Received pt from ANGELA Art. Pt awake, alert, and talkative. IV was removed. Frausto was also removed from the middle and bed was soiled. Restraints were off. Bed in lowest position. Call light within reach. Will continue to monitor.
[2020-04-23] MEDS: Thiamine HCl 100 MG in D5W 55 ML IVPB SCH (21:00)
[2020-04-23] MEDS: TraZODone 100mg tab ORAL SCH (21:57)
--- NOTE | 2020-04-23 22:21 | NUR ---
NURSE NOTES: Called and left a message with Dr. Sorenson regarding pts refusal to stay in bed and constant removal of her michelle and IV. Awaiting call back.
[2020-04-24] VITALS: BP 142/99
[2020-04-24] MEDS: Haloperidol 5mg/ml Inj IM PRN (01:11)
[2020-04-24] MEDS: LORazepam Inj 2mg/ml 1ml IV PRN (02:47)
[2020-04-24 04:00] VITALS: BP 141/97
[2020-04-24] MEDS: NovoLOG Insulin Flexpen SUBQ SCH ×4 (06:30→20:48)
--- NOTE | 2020-04-24 07:32 | NUR ---
NURSE HAND-OFF REPORT: Important Events on Shift: Pt michelle leaking and was agitated last night Patient Status: stable Diet: ccho medium Pending Orders: n Pending Results/Labs:n Pending MD notification:n Latest Vital Signs: Temperature 98.8 , Pulse 67 , B/P 141 /97 , Respiratory Rate 24 , O2 SAT 92 , Nasal Cannula, O2 Flow Rate 3.0 . Vital Sign Comment: stable EKG Rhythm: Sinus Rhythm Rhythm change?: N MD Notified?: Donnie -Dr. Maren ANDREA Response: Order Received& Read Back Latest Moreno Fall Score: 60 Fall Risk: High Risk Safety Measures: Call light Within Reach, Bed Alarm Zone 1, Side Rails Side Rails x2, Bed position Low and Locked. Fall Precautions: Yellow Socks Yellow Gown Patient Fall Education Report given to ANGELA Art.
--- NOTE | 2020-04-24 07:57 | NUR ---
NURSE NOTES: Received patient in bed. Awake, A/O x2. On room air, respirations unlabored. Patient denies pain. F/C in place, heart monitor on, Iv on right forearm, Bilateral soft wrist restraints in place, hands warm with active ROM. Side rails up x2, call light within reach with return demonstration.
[2020-04-24 08:00] VITALS: BP 131/96
[2020-04-24] MEDS: Carvedilol 12.5mg tab ORAL SCH ×2 (08:45→20:45)
[2020-04-24] MEDS: Heparin 5000 units/ml inj SUBQ SCH ×2 (08:46→20:47)
--- NOTE | 2020-04-24 09:28 | NUR ---
CASE MANAGEMENT:REVIEW SI;EPISODE OF GENERALIZED WEAKNESS. SEIZURE DISORDER. DIASTOLIC CHF. 99.3 82 24 142/99 62% 3L NC IS;HALDOL IM Q6 PRN NORVASC PO QD ALLOPURINOL PO QD HEPARIN SQ Q12 KEPPRA PO Q12 COREG PO Q12 THIAMINE IV Q24 ATIVAN IV Q6 PRN TELE STATUS DCP;PATIENT IS FROM HOME PLAN; NEURO EVAL CARDIAC EVAL PT/PT EVAL SEIZURE PRECAUTION
--- NOTE | 2020-04-24 10:26 | NUR ---
NURSE NOTES: Patient states she wants to leave the hospital today without clearance. Patient states "give me the papers to sign." Patient is alert to self and time. Unable to state location and purpose of being admitted. Patient keeps getting out of bed and ambulating with unsteady gait. Patient offered toileting needs, refuses. Patient given call light to call for assistance but refuses to use call light. (lan) contacted to speak with patient and convince her to stay until cleared. Lan to call patient.
--- NOTE | 2020-04-24 10:47 | NUR ---
NURSE NOTES: Patient spoke to Lan () and primary doctor Dr. Carly Neil. Patient agreed to stay for today. Patient offered fluids and food, refused, offered toileting, refused. Bed sheets changed.
[2020-04-24 12:00] VITALS: BP 111/71
--- NOTE | 2020-04-24 13:05 | Cardiology Report ---
APPROVED REPORT EKG Measurement Heart [id number] <Conclusion> Sinus rhythm with most likely non-conducted APC. Low voltage QRS Cannot rule out Anterior infarct, age undetermined Abnormal ECG
--- NOTE | 2020-04-24 15:26 | History & Physical ---
History and Physical History & Physicial Dictated for Int Med-Dr Sorenson no. [id number] Paulo Gotti MD Apr 24, 2020 15:26
--- NOTE | 2020-04-24 15:58 | NUR ---
PT Note PT connor completed. Patient was cooperative with eval/tx. She's independent in functional mobility and gait without any AD. Distance limited to 100 ft due to patient on max isolation for r/o Covid-19. No further PT needed at this time. Addendum: 04/24/20 at 1559 by EDGARD CELESTE PT Amended: Links added.
[2020-04-24 16:00] VITALS: BP 124/94
--- NOTE | 2020-04-24 16:06 | Cardiology Progress Note ---
Subjective Subjective [id number] Objective Last 24 Hour Vital Signs Date Time Temp Pulse Resp B/P (MAP) Pulse Ox O2 Delivery O2 Flow Rate FiO2 04/24/20 12:00 96.9 84 18 111/71 (84) 93 04/24/20 12:00 66 04/24/20 09:11 137 04/24/20 09:00 Nasal Cannula 2.0 04/24/20 08:45 79 131/96 04/24/20 08:45 79 131/96 04/24/20 08:00 99.3 79 18 131/96 (108) 95 04/24/20 08:00 68 04/24/20 04:00 98.8 82 24 141/97 (112) 92 04/24/20 04:00 67 04/24/20 03:17 68 24 142/99 93 04/24/20 02:47 68 24 142/99 93 04/24/20 00:00 98.0 68 24 142/99 (113) 93 04/23/20 21:57 67 148/90 04/23/20 21:00 Nasal Cannula 3.0 04/23/20 20:00 62 04/23/20 20:00 98.5 67 24 148/90 (109) 92 Intake and Output 04/23/20 04/24/20 19:00 07:00 Intake Total 450 ml Output Total 600 ml 30 ml Balance -150 ml -30 ml Intake Oral 450 ml Output Urine Total 600 ml 30 ml # Voids 6 # Bowel Movements 3 3 Laboratory Tests Test 04/23/20 16:40 04/24/20 06:31 04/24/20 12:07 POC Whole Blood Glucose 146 MG/DL (74-106) H Pending 165 MG/DL (74-106) H Microbiology Date/Time Source Procedure Growth Status 04/22/20 12:40 Nasopharynx Coronavirus COVID-19 PCR ([facility]) - Final Complete 04/22/20 11:30 Blood Blood Culture - Preliminary NO GROWTH AFTER 24 HOURS Resulted 04/22/20 11:15 Blood Blood Culture - Preliminary NO GROWTH AFTER 24 HOURS Resulted Marie Woods MD Apr 24, 2020 16:06
--- NOTE | 2020-04-24 16:45 | History and Physical Report ---
DATE OF ADMISSION: 04/22/2020 CHIEF COMPLAINT: The patient is a 49-year-old female, who presents with chief complaint of acute loss of consciousness. HISTORY OF PRESENT ILLNESS: The patient has a history of congestive heart failure and alcohol abuse. The patient apparently passed out on April 22, 2020. The patient presented to [facility]. The patient is admitted for syncopal episode to rule out breakthrough seizure versus syncopal episode. REVIEW OF SYSTEMS: Unable to assess secondary to the patient's mental status. PAST MEDICAL HISTORY: Significant for: 1. Congestive heart failure. 2. Hypertension. 3. Seizure disorder. 4. Gout. 5. Alcohol abuse. 6. Hypercholesterolemia. 7. Bipolar type 1 disorder. 8. Hypothyroidism. PAST SURGICAL HISTORY: The patient denies. CURRENT MEDICATIONS: 1. Albuterol metered-dose inhaler 2 puffs p.o. q.i.d. p.r.n. 2. Allopurinol 300 mg p.o. nightly. 3. Amlodipine 5 mg p.o. daily. 4. Atorvastatin 80 mg p.o. nightly. 5. Carvedilol 12.5 mg p.o. twice daily. 6. Lasix 40 mg p.o. daily. 7. Gabapentin 300 mg p.o. 3 times daily. 8. Keppra 500 mg p.o. twice daily. 9. Lorazepam 0.5 mg p.o. 3 times daily. 10. Vivitrol 380 mg intramuscularly q.monthly. 11. Naproxen 250 mg p.o. 3 times daily. 12. Omeprazole 40 mg p.o. daily. 13. Tramadol 50 mg p.o. twice daily. 14. Trazodone 100 mg p.o. nightly. ALLERGIES: No known drug allergies. SOCIAL HISTORY: The patient admits to tobacco use of one-quarter pack a day. The patient denies current alcohol use, but the patient is on Vivitrol. PHYSICAL EXAMINATION: VITAL SIGNS: Temperature 99.0, respirations 16, pulse 83, and blood pressure 162/84. GENERAL: The patient is a well-developed and well-nourished female, in no apparent distress. HEENT: Eyes, pupils equal and responsive to light and accommodation. Extraocular movements are intact. NECK: Supple. No lymphadenopathy. CHEST: Lungs are clear to auscultation bilaterally without wheezes or rales. CARDIOVASCULAR: Regular rhythm and rate. S1, S2 normal without murmurs, rubs, or gallops. ABDOMEN: Soft, nontender, nondistended. Positive bowel sounds. No evidence of hepatosplenomegaly. Currently, no rebound or guarding noted. EXTREMITIES: Negative for clubbing, cyanosis, or edema. RECTAL: Not performed. GENITAL: Not performed. NEUROLOGIC: Cranial nerves II through XII are grossly intact without focal deficits. IMAGING: A CT scan of the brain was reported as no acute intracranial bleed or mass effect. LABORATORY STUDIES: WBC 10.1, hemoglobin 12.7, hematocrit 39.5, platelets 170,000. Sodium 143, potassium 3.4, chloride 102, CO2 of 34, BUN 14, creatinine 1.0, glucose 129. Troponin 0.006. BNP elevated at 7645. Urine toxicology was negative. Urinalysis showed 2+ ketones. ASSESSMENT: This is a 49-year-old female with: 1. Syncopal episode. 2. Altered mental status. 3. Generalized weakness. 4. Congestive heart failure, acute on chronic. 5. Hypertension. 6. Seizure disorder. 7. Gout. 8. Alcohol abuse, history. 9. Hypercholesterolemia. 10. Bipolar type 1 disorder. 11. Hypothyroidism. TREATMENT: 1. Syncopal episode/altered mental status. An initial CT scan of the brain was reported as within normal limits. Syncope may be secondary to congestive heart failure versus seizure disorder. 2. Congestive heart failure. A Cardiology consultation has been obtained with Dr. Hunter Salomon. An echocardiogram is pending. BNP is greater than 7000. We will follow recommendations of Cardiology. 3. Hypertension. Continue amlodipine as above. 4. Seizure disorder. Continue Keppra as above. 5. Gout. Continue allopurinol as above. 6. Alcohol abuse. The patient is currently on Vivitrol q.monthly. 7. Hypercholesterolemia. Continue atorvastatin as above. 8. Bipolar type 1. Continue trazodone as above. 9. Hypothyroidism. Paulo Gotti M.D. DR: Spencer JOB#: [id number] CC:
--- NOTE | 2020-04-24 17:07 | NUR ---
NURSE NOTES: Patient off the soft wrist restraints. Patient calm, cooperative, remains in bed. Patient alert to self, date/time, and location. Patient oriented to purpose by RN. Patient states she will call before getting out of bed. Bed at the lowest position, bed alarm on, call light within reach with return demonstration, side rails up x2.
--- NOTE | 2020-04-24 18:16 | Consultation ---
DATE OF CONSULTATION: 04/24/2020 CARDIOLOGY CONSULTATION This is done as a coverage for Dr. Hunter Salomon. PATIENT ID: This is a 50-year-old female. REASON FOR EVALUATION: Congestive heart failure. The history is taken from the patient. The patient, however, is slightly confused and she reports that her brought her to the emergency department because she was "acting wired" and the other record I have available only is history and physical by Dr. Gotti and also there was a progress note from Dr. Wright. There is not too much detail. However, there is generalized weakness and confusion. The patient denies orthopnea, chest pain, palpitations, or dyspnea on exertion. PAST MEDICAL HISTORY: Significant for alcohol abuse, hypertension, diabetes, history of seizure disorder. ALLERGIES: None reported. MEDICATIONS: Her home medications were all reviewed. CORONARY RISK FACTORS: Hypertension, diabetes. REVIEW OF SYSTEMS: Very partial. She keeps repeating that she is going home tomorrow and she is doing totally fine. She denies any previous cardiac history. PHYSICAL EXAMINATION: GENERAL: A middle aged lady, not in acute distress. VITAL SIGNS: Blood pressure 148/90, heart rate 67, temperature is normal. Oxygen saturation is normal. HEENT: PERRLA. EOMI. NECK: Supple. Jugular venous pressure is approximately 4 cm. She has normal carotid upstroke. LUNGS: She has only a couple of rales, most of it is clear. HEART: Regular. PMI in the sixth intercostal space in the midclavicular line. ABDOMEN: Soft. Slightly distended. Bowel sounds are present. LOWER EXTREMITIES: No edema. EKG is normal. Chest x-ray is unremarkable. Laboratory data are reviewed and there are no significant abnormalities including lactic acid was normal and troponin was normal. Potassium was 3.4, 3.2, and today is pending. Her BNP was 7645. IMPRESSION AND RECOMMENDATION: The patient clinically does not have a heart failure. She is not in distress. She does have crackles. Her chest x-ray does not show heart failure. Her BNP level could be nonspecific, and her EKG did not show any significant changes. I reviewed all this patient's orders. She is mostly being treated for alcohol abuse. I am going to discontinue furosemide. I do not see a reason why she should be so aggressively diuresed. There is no evidence for heart failure. Clinically, BNP could be nonspecific, so discontinue furosemide, and I am going to follow this patient with you. Marie Woods M.D. DR: PRESTON JOB#: [id number] CC: [place]
--- NOTE | 2020-04-24 18:54 | NUR ---
NURSE HAND-OFF REPORT: Important Events on Shift:[SWR removed] Patient Status: [full code, stable] Diet: [regular] Pending Orders: [] Pending Results/Labs:[] Pending MD notification:[] Latest Vital Signs: Temperature 98.8 , Pulse 109 , B/P 124 /94 , Respiratory Rate 18 , O2 SAT 98 , Nasal Cannula, O2 Flow Rate 2.0 . Vital Sign Comment: [] EKG Rhythm: Sinus Rhythm Rhythm change?: N MD Notified?: Y -Dr Umm ANDREA Response: No New Orders Received Latest Moreno Fall Score: 60 Fall Risk: High Risk Safety Measures: Call light Within Reach, Bed Alarm Zone 1, Side Rails Side Rails x2, Bed position Low and Locked. Fall Precautions: Yellow Socks Yellow Gown Patient Fall Education Report given to [ANGELA Dodd].
--- NOTE | 2020-04-24 19:30 | NUR ---
NURSE NOTES: Report received from ANGELA Art. Patient is awake on bed, alert and oriented x 2-3. mud jack operator is in place, shows sinus rhythm with no chest pain reported. On CCHO ( Medium), instructed and amenable. On fall precaution. Frausto catheter is in place, drained via gravity. IV site is on right forearm g-22 saline lock that is patent and intact. Safety measures are in place, bed in lowest and locked position, side rails up x 2, call light button and bedside table within reach, instructed to call for any assistance needed. Will continue plan of care.
[2020-04-24 20:00] VITALS: BP 107/70
[2020-04-24] MEDS: TraZODone 100mg tab ORAL SCH (20:46)
[2020-04-24] MEDS: Thiamine HCl 100 MG in D5W 55 ML IVPB SCH (20:48)
[2020-04-25] VITALS: BP 112/79
[2020-04-25 04:00] VITALS: BP 103/67
[2020-04-25] MEDS: NovoLOG Insulin Flexpen SUBQ SCH (06:06)
--- NOTE | 2020-04-25 07:03 | NUR ---
NURSE HAND-OFF REPORT: Important Events on Shift: Mostly asleep; verbalized that she will go AMA today AM, family aware Patient Status: stable, aox 2-3; forgetful, reoriented Diet: CCHO medium Pending Orders: N Pending Results/Labs: morning labs Pending MD notification: N Latest Vital Signs: Temperature 96.4 , Pulse 79 , B/P 103 /67 , Respiratory Rate 20 , O2 SAT 96 , Room Air, O2 Flow Rate 2.0 . Vital Sign Comment: stable EKG Rhythm: Sinus Rhythm Rhythm change?: N MD Notified?: N MD Response: N Latest Moreno Fall Score: 60 Fall Risk: High Risk Safety Measures: Call light Within Reach, Bed Alarm Zone 1, Side Rails Side Rails x2, Bed position Low and Locked. Fall Precautions: Yellow Socks Yellow Gown Patient Fall Education Report given to ANGELA Rinaldi Addendum: 04/25/20 at 0721 by Merary Meraz RN Correction: RAMIN Rinaldi
--- NOTE | 2020-04-25 07:45 | NUR ---
NURSE NOTES: RECEIVED PATIENT A/A/OX4, AMBULATES WITH STEADY GAIT. ADAMANT TO GO HOME CHASE ITS HER DAUGHTER'S BDAY TODAY. PATIENT CONSUMED 100% BREAKFAST. NO C/O PAIN/DISCOMFORT NOTED. PIV ACCESS PATENT AND INTACT. F/C PATENT AND DRAINS WELL. KEPT BED IN THE LOWEST POSITION. SIDERAILS ARE UPX2, CALL LIGHT IS WITHIN REACH. BRAKES AND LOCK ACTIVATED. WILL CONT TO MONITOR.
[2020-04-25 07:49] LABS: BASOPHILS % (AUTO) 1.3 % (0.0-2.0); EOSINOPHILS % (AUTO) 0.4 % (0.0-3.0); HEMATOCRIT 47.2 % (37.0-47.0); HEMOGLOBIN 14.9 G/DL (12.0-16.0); LYMPHOCYTES % (AUTO) 18.9 % (20.0-45.0); MEAN CORPUSCULAR VOLUME 107 FL (80-99); MONOCYTES % (AUTO) 14.2 % (1.0-10.0); NEUTROPHILS % (AUTO) 65.2 % (45.0-75.0); PLATELET COUNT 159 K/UL (150-450); RED CELL DISTRIBUTION WIDTH 20.8 % (11.6-14.8); WHITE BLOOD COUNT 9.5 K/UL (4.8-10.8)
[2020-04-25 08:00] VITALS: BP 115/79
[2020-04-25 08:25] LABS: CALCIUM 9.9 MG/DL (8.5-10.1); CREATININE 3.3 MG/DL (0.55-1.30)
[2020-04-25 09:04] VITALS: BP 115/99
[2020-04-25] MEDS: Carvedilol 12.5mg tab ORAL SCH (09:04)
[2020-04-25] MEDS: Heparin 5000 units/ml inj SUBQ SCH (09:09)
[2020-04-25] MEDS ORDERED: Tubing IV Secondary IV ONE (09:26)
--- NOTE | 2020-04-25 10:25 | NUR ---
NURSE NOTES: INFORMED DR ESQUIVEL RE: K+3.0. NEW ORDER OBTAINED AND CARRIED AWAY. WILL CONT TO MONITOR.
--- NOTE | 2020-04-25 11:10 | NUR ---
NURSE NOTES: DISCHARGE HOME WITH INSTRUCTIONS GIVEN. VERIFIED HOME ADDRESS. PERSONAL BELONGINGS NOTED. PROVIDED TAXI VOUCHER TO GO HOME. CALLED AND SPOKE WITH WITH RAHUL TO MEET PATIENT AT HOME. 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 VOIDED WITH NO DISCOMFORT NOTED.
--- NOTE | 2020-04-25 13:09 | Internal Med Progress Note ---
Subjective Date of Service: Apr 25, 2020 Physician Name Paulo Gotti Attending Physician Saul Sorenson MD Allergies: Coded Allergies: No Known Allergies (Unverified , 11/07/17) ROS Limited/Unobtainable: No Constitutional: Reports: no symptoms HEENT: Reports: no symptoms Cardiovascular: Reports: no symptoms Respiratory: Reports: no symptoms Gastrointestinal/Abdominal: Reports: no symptoms Genitourinary: Reports: no symptoms Neurologic/Psychiatric: Reports: no symptoms Subjective 50 YO F admitted with syncope and altered mental status. Cover for Int Med-DR Sorenson Objective Last Vital Signs Date Time Temp Pulse Resp B/P (MAP) Pulse Ox O2 Delivery O2 Flow Rate FiO2 04/25/20 09:11 Room Air 04/25/20 09:04 79 115/99 04/25/20 08:00 98.1 18 98 04/24/20 09:00 2.0 Laboratory Tests Test 04/24/20 16:35 04/24/20 20:45 04/25/20 05:43 04/25/20 06:25 POC Whole Blood Glucose 131 MG/DL (74-106) H 123 MG/DL (74-106) H 159 MG/DL (74-106) H White Blood Count 9.5 K/UL (4.8-10.8) Red Blood Count 4.40 M/UL (4.20-5.40) Hemoglobin 14.9 G/DL (12.0-16.0) Hematocrit 47.2 % (37.0-47.0) H Mean Corpuscular Volume 107 FL (80-99) H Mean Corpuscular Hemoglobin 33.9 PG (27.0-31.0) H Mean Corpuscular Hemoglobin Concent 31.6 G/DL (32.0-36.0) L Red Cell Distribution Width 20.8 % (11.6-14.8) H Platelet Count 159 K/UL (150-450) Mean Platelet Volume 8.7 FL (6.5-10.1) Neutrophils (%) (Auto) 65.2 % (45.0-75.0) Lymphocytes (%) (Auto) 18.9 % (20.0-45.0) L Monocytes (%) (Auto) 14.2 % (1.0-10.0) H Eosinophils (%) (Auto) 0.4 % (0.0-3.0) Basophils (%) (Auto) 1.3 % (0.0-2.0) Sodium Level 138 MMOL/L (136-145) Potassium Level 3.0 MMOL/L (3.5-5.1) L Chloride Level 96 MMOL/L (98-107) L Carbon Dioxide Level 32 MMOL/L (21-32) Anion Gap 10 mmol/L (5-15) Blood Urea Nitrogen 32 mg/dL (7-18) H Creatinine 3.3 MG/DL (0.55-1.30) H Estimat Glomerular Filtration Rate 17.9 mL/min (>60) Glucose Level 117 MG/DL (74-106) H Calcium Level 9.9 MG/DL (8.5-10.1) Intake and Output 04/24/20 04/25/20 19:00 07:00 Intake Total 170 ml 106 ml Output Total 10 ml 50 ml Balance 160 ml 56 ml Intake Oral 170 ml 50 ml IV Total 56 ml Output Urine Total 10 ml 50 ml # Bowel Movements 2 Objective PHYSICAL EXAMINATION: GENERAL: The patient is a well-developed and well-nourished female, in no apparent distress. HEENT: Eyes, pupils equal and responsive to light and accommodation. Extraocular movements are intact. NECK: Supple. No lymphadenopathy. CHEST: Lungs are clear to auscultation bilaterally without wheezes or rales. CARDIOVASCULAR: Regular rhythm and rate. S1, S2 normal without murmurs, rubs, or gallops. ABDOMEN: Soft, nontender, nondistended. Positive bowel sounds. No evidence of hepatosplenomegaly. Currently, no rebound or guarding noted. EXTREMITIES: Negative for clubbing, cyanosis, or edema. RECTAL: Not performed. GENITAL: Not performed. NEUROLOGIC: Cranial nerves II through XII are grossly intact without focal deficits. Assessment/Plan Assessment/Plan ASSESSMENT: This is a 49-year-old female with: 1. Syncopal episode. 2. Altered mental status. 3. Generalized weakness. 4. Congestive heart failure, acute on chronic. 5. Hypertension. 6. Seizure disorder. 7. Gout. 8. Alcohol abuse, history. 9. Hypercholesterolemia. 10. Bipolar type 1 disorder. 11. Hypothyroidism. TREATMENT: 1. Syncopal episode/altered mental status. An initial CT scan of the brain was reported as within normal limits. Syncope may be secondary to congestive heart failure versus seizure disorder. 2. Congestive heart failure. A Cardiology consultation has been obtained with Dr. Hunter Salomon. An echocardiogram is pending. BNP is greater than 7000. We will follow recommendations of Cardiology. 3. Hypertension. Continue amlodipine as above. 4. Seizure disorder. Continue Keppra as above. 5. Gout. Continue allopurinol as above. 6. Alcohol abuse. The patient is currently on Vivitrol q.monthly. 7. Hypercholesterolemia. Continue atorvastatin as above. 8. Bipolar type 1. Continue trazodone as above. 9. Hypothyroidism. 10. Discharge home today Paulo Gotti MD Apr 25, 2020 13:09
--- NOTE | 2020-04-25 17:47 | Emergency Room Report ---
History of Present Illness General Chief Complaint: Generalized Weakness Source: Patient, Medical Record, EMS Present Illness HPI Patient is a 50-year-old female brought in by EMS for increased generalized weakness and confusion. Patient is noted to have more weakness over the past few days.She reports feeling weak in both arms and the legs. Have been somewhat more confused. She reports having some recent alcohol intake. History is markedly limited by patient's mental status and poor historian. Allergies: Coded Allergies: No Known Allergies (Unverified , 11/07/17) COVID-19 Screening Contact w/high risk pt: No Experienced COVID-19 symptoms?: No COVID-19 Testing performed BUTCHER MEAT: No COVID-19 Screening: Negative COVID-19 Patient History Past Medical History: see triage record Now: No Reviewed Nursing Documentation: PMH: Agreed; PSxH: Agreed Nursing Documentation-PMH Past Medical History Deferred: Pt Cognitively Impaired Hx Cardiac Problems: Yes Hx Hypertension: Yes Hx Asthma: Yes Hx COPD: Yes Hx Diabetes: Yes Hx Cancer: No Hx Gastrointestinal Problems: Yes - Pancreatitis Hx Neurological Problems: Yes - seizures Hx Seizures: Yes - Seizures Review of Systems All Other Systems: limited - Review of systems limited by poor historian Physical Exam Vital Signs Date Time Temp Pulse Resp B/P (MAP) Pulse Ox O2 Delivery O2 Flow Rate FiO2 04/22/20 10:12 99.0 83 16 162/84 (110) 96 Nasal Cannula 2.0 General Appearance: mild distress, obese, Chronically Ill Head: normocephalic ENT: hearing grossly normal Neck: full range of motion Respiratory: lungs clear, normal breath sounds Cardiovascular #1: normal peripheral pulses, edema Gastrointestinal: normal inspection, soft Musculoskeletal: normal inspection Neurologic: motor weakness - Generalized motor weakness, other - Confused Psychiatric: other - Slow speech Skin: no rash Medical Decision Making Diagnostic Impression: Primary Impression: Episode of generalized weakness Additional Impressions: Hyperglycemia Seizure disorder ER Course Patient presented for altered mental status and generalized weakness. Differential diagnosis include was not limited to hyperglycemia, CVA, encephalopathy, alcohol intoxication among others. Because of complexity of patient's case laboratory tests and imaging studies were ordered. Patient was noted to have initial confusion and generalized weakness. CT imaging of the head read by radiology showed generalized atrophy without acute CVA. Patient started on IV fluids. She was noted to be significantly confused. Dr. Saul Sorenson was contacted for inpatient management Last Vital Signs Date Time Temp Pulse Resp B/P (MAP) Pulse Ox O2 Delivery O2 Flow Rate FiO2 04/25/20 09:11 Room Air 04/25/20 09:04 79 115/99 04/25/20 08:00 98.1 18 98 04/24/20 09:00 2.0 Status: unchanged Disposition: ADMITTED INPATIENT Condition: Serious Referrals: NOT CHOSEN IPA/,REFERRING (PCP) Patient Instructions: Shortness of Breath, [id number], Hepatic Encephalopathy, Weakness, [id number], Seizure, Adult, [id number] Noé Dash MD Apr 25, 2020 17:47
--- NOTE | 2020-04-26 07:38 | Discharge Summary ---
Discharge Summary Discharge Summary _ DATE OF ADMISSION: 04/22/2020 DATE OF DISCHARGE: 04/25/2020 DISCHARGED BY:Dr Sorenson REASON FOR ADMISSION: 50 years old female with past medical history of hypertension, COPD/asthma, diabetes mellitus, seizure disorder, alcohol abuse, was brought by paramedics due to increased generalized weakness and confusion. Patient reported worsening weakness over the past few days. She reported being weak in both arms and legs. The patient apparently passed out on April 22, 2020. She reported recent alcohol intake. Upon evaluation blood pressure was elevated - 162/84 She required supplemental oxygen via nasal cannula , saturating 96% on it. CT of the head revealed generalized atrophy, but no acute intracranial pathology. Laboratory work-up revealed no leukocytosis ,stable hemoglobin and hematocrit. Potassium 3.4 , stable other electrolytes . Glucose 129 . Stable renal parameters. Lactic acid 1.2 . Stable LFT Troponin negative, pro BNP 7645 . Urine toxicology screen was negative. Serum alcohol was less than 3. Urinalysis revealed no evidence of urinary tract infection. Chest x-ray demonstrated mild pulmonary venous congestion. In emergency department patient received Lasix and thiamine. Potassium was replaced . Patient subsequently admitted for further management. CONSULTANTS: analytics analyst Dr. Woods pulmonary/critical care Dr. Wright [facility] COURSE: Patient admitted to telemetry floor. Patient initially started on diureses with close monitoring of volumes and cardiorenal parameters. Serial troponin were negative. EKG revealed no acute ischemic changes. Echocardiogram demonstrated preserved ejection fraction of 55 to 60% with mild left ventricular hypertrophy. No evidence of wall motion abnormality. Blood pressure was managed with calcium channel marquez and beta-marquez. Blood pressure stabilized. Statin continued. DVT prophylaxis provided. Lasix subsequently stopped. Supplemental oxygen provided and titrated to keep pulse oximetry above 92% . Pulmonary toilet was on board as needed . Pulse oximetry become stable on room air. Seizure precaution maintained. Keppra continued. No evidence of seizure activity while in the hospital . Patient continued on thiamine and folic acid. Blood sugar was managed with sliding scale of insulin . Blood sugar remained stable. Renal parameters and electrolytes were closely monitored, electrolytes corrected as needed. Phosphorus and magnesium corrected in additional to initial potassium. Home psych medication continued. Patient counseled on abstinence from alcohol . Patient clinically stabilized and was ready for discharge. FINAL DIAGNOSES: Syncopal episode Congestive heart failure ,acute on chronic, diastolic Alcohol abuse Hypertension Seizure disorder Bipolar type I Hypothyroidism Gout Hypercholesteremia DISCHARGE MEDICATIONS: See Medication Reconciliation list. DISCHARGE INSTRUCTIONS: Patient was discharged home. Follow-up with a primary care provider in 1 week. I have been assigned to dictate discharge summary for this account. I was not involved in the patient's management. Margarita Manzo NP Apr 26, 2020 07:38
--- NOTE | 2020-04-27 11:43 | NUR ---
INSURANCE DC SUMMARY/INSTRUCTIONS FAXED TO [facility] [phone]
== END 2020-04-25 11:54 | disposition home or self-care (01) | DRG 194 ==
LOC: EDBD 10:17 → EMR 10:45 → EDBEDREQSVC 14:10 → EDBEDREQ 14:10 → EDBEDREQSVC 14:11 → 2E 14:33 → EDBEDREQ 15:09 → 2E 16:16
DX: I11.0 Hypertensive heart disease with heart failure (principal); E13.9 Other specified diabetes mellitus without complications; G40.909 Epilepsy, unspecified, not intractable, without status epilepticus; I50.33 Acute on chronic diastolic (congestive) heart failure; F10.10 Alcohol abuse, uncomplicated; F31.9 Bipolar disorder, unspecified; E03.9 Hypothyroidism, unspecified; E78.00 Pure hypercholesterolemia, unspecified; F17.210 Nicotine dependence, cigarettes, uncomplicated; M10.9 Gout, unspecified; J44.9 Chronic obstructive pulmonary disease, unspecified; R55 Syncope and collapse
CPT/HCPCS: 36415; 70450; 71045; 80048; 80053; 80307; 81001; 82140; 82306; 82607; 82962; 83605; 83735; 83880; 84100; 84443; 84484; 85025; 85610; 85730; 87040; 93005; 93306; 96365; 96375; 99285; G0480; J1815; J2405; J8499